=== PATIENT | female | born 1960 | race Two or more races ===

== ENCOUNTER → 2020-01-28 15:08 | Outpatient (BNVA) | payer OTHER, SELFPAY | PROVIDERS: PCP Family Medicine; Visit Provider Surgery | DX: Z86.000 Personal history of in-situ neoplasm of breast (principal); Z80.3 Family history of malignant neoplasm of breast; M19.90 Unspecified osteoarthritis, unspecified site; Z92.3 Personal history of irradiation | CPT/HCPCS: 99212 ==

== ENCOUNTER 2020-06-24 13:02 | Outpatient (REF) | payer OTHER, SELFPAY ==
--- NOTE | ~2020-06-24 | MM_ITS ---
EXAMINATION: MM SCREENING DIGITAL BREAST TOMOSYNTHESIS, BILATERAL CLINICAL INFORMATION: Screening. Asymptomatic. Status post right lumpectomy. COMPARISON: Mammography: April 11, 2019 and studies dating back to June 13, 2011 TECHNIQUE: Digital breast tomosynthesis is performed in both the craniocaudal and mediolateral oblique views along with computer-aided detection (CAD). Synthesized 2D images are generated from the tomosynthesis. FINDINGS: There are scattered areas of fibroglandular density (ACR BI-RADS breast composition Category b). There are no significant masses, abnormal calcifications, or other abnormalities. Patient status post previous right lumpectomy with associated postsurgical change. MM/MM tomosynthesis screening BI IMPRESSION: There are no significant changes from prior study. ASSESSMENT: BI-RADS 2: Benign RECOMMENDATION: Routine annual mammography screening. This patient's information was entered into a reminder system with a target due date for their next mammogram.
== END 2020-06-24 13:03 | disposition home or self-care (01) ==
LOC: HO.MAMMO 13:02
PROVIDERS: PCP Family Medicine; Visit Provider Family Medicine
DX: Z12.31 Encounter for screening mammogram for malignant neoplasm of breast (principal)
CPT/HCPCS: 77063; 77067

== ENCOUNTER 2020-08-04 14:56 | Outpatient (REF) | payer OTHER, SELFPAY ==
[2020-08-04 17:41] LABS: Hematocrit 38.4 % (37-47); Hemoglobin 12.2 g/dl (12.0-16.0); Mean Corpuscular HGB Conc 31.8 g/dl (31.0-35.0); Mean Corpuscular Hemoglobin 27.9 pg (27.0-33.0); Mean Corpuscular Volume 87.7 fL (80-98); Mean Platelet Volume 10.6 fL (9.4-12.3); Platelet Count 205 X10*3/uL (160-400); Red Blood Count 4.38 X10*6/uL (4.20-5.50); Red Cell Distribution Width 13.9 % (11.0-16.0); White Blood Count 5.5 X10*3/uL (4.8-10.8)
[2020-08-04 18:00] LABS: Alanine Aminotransferase 11 U/L (0-31); Albumin Level 4.4 g/dL (3.5-5.0); Alkaline Phosphatase 69 U/L (39-117); Anion Gap 13 (12-20); Aspartate Amino Transferase 15 U/L (5-31); Bilirubin Total 0.4 mg/dL (0.0-1.0); Blood Urea Nitrogen 13 mg/dL (9-16); Calcium 9.4 mg/dL (8.4-10.2); Carbon Dioxide 29 mmol/L (22-29); Chloride 105 mmol/L (96-108); Estimated Glomerular Filt Rate > 60; Glucose Random 107 mg/dL (60-115); Potassium 3.9 mmol/L (3.3-5.1); Sodium 143 mmol/L (135-145)
== END 2020-08-04 14:57 | disposition home or self-care (01) ==
LOC: HO.LAB 14:56
PROVIDERS: PCP Family Medicine; Visit Provider Nurse Practitioner Family
DX: Z01.818 Encounter for other preprocedural examination (principal)
CPT/HCPCS: 36415; 80053; 85027; 99202

== ENCOUNTER → 2020-08-12 13:38 | Outpatient (BNVA) | payer OTHER, SELFPAY | PROVIDERS: PCP Family Medicine; Referring Provider Family Medicine; Visit Provider Surgery | DX: Z86.000 Personal history of in-situ neoplasm of breast (principal) | CPT/HCPCS: 99212 ==

== ENCOUNTER → 2020-08-13 10:30 | Outpatient (BNV) | payer OTHER, SELFPAY | PROVIDERS: PCP Family Medicine; Visit Provider Internal Medicine Medical Oncology | DX: Z86.000 Personal history of in-situ neoplasm of breast (principal) | CPT/HCPCS: 99213; 99214 ==

== ENCOUNTER 2020-09-18 12:24 | Day surgery (SDC) | payer OTHER, SELFPAY ==
--- NOTE | 2020-09-17 11:08 | HO.ANESPROP2 ---
Documented by User: Lachelle Loyola 09/17/20 11:09 HPI - Anesthesia Eval Consult details Narrative: 60yo F for Colonoscopy PMFSH Active Problems Active Problems: All Active Problems (Updated 08/13/20 @ 10:14 by Chadwick Rojo MD) Osteoarthritis (Acute) History of ductal carcinoma in situ (DCIS) of breast (Acute) Past Medical History Medical History GERD (gastroesophageal reflux disease) History of ductal carcinoma in situ (DCIS) of breast Hypertension Osteoarthritis Surgical History Surgical History History of left knee replacement History of lumpectomy of right breast Social History Social History Alcohol intake: never Patient Tobacco Use Status: Former Tobacco user Use of substances other than those prescribed or required for medical reasons: No Are you DNR?: No Advance Directives: No Advance Directives Information Provided: Yes Meds Allergies Allergy/AdvReac Type Severity Reaction Status Date / Time aspirin [Aspirin] Allergy Mild HEARTBURN Verified 08/12/20 13:51 Home Medications Medication Instructions Recorded Confirmed Last Taken Type cholecalciferol (vitamin D3) 25 25 mcg PO DAILY 01/28/20 08/13/20 Unknown History mcg (1,000 unit) capsule lisinopril 10 mg tablet 10 mg PO DAILY 01/28/20 08/13/20 Unknown History omeprazole 20 mg capsule,delayed 20 mg PO DAILY 01/28/20 08/13/20 Unknown History release Exam Exam Date and Time: September 17, 2020 110 Pertinent Lab Results Pertinent Lab Results: Laboratory Tests 08/13/20 08/13/20 10:46 10:46 WBC 4.6 L Hgb 11.9 L Hct 37.2 Plt Count 182 Sodium 141 Potassium 4.1 Chloride 105 Carbon Dioxide 29 BUN 19 H Creatinine 0.66 Assessment and Plan Assessment Anesthesia Assessment: Chart Reviewed Documented by User: Sophia Woodson 09/18/20 14:29 [facility] Past Medical History Medical History GERD (gastroesophageal reflux disease) History of ductal carcinoma in situ (DCIS) of breast Hypertension Osteoarthritis Surgical History Surgical History History of left knee replacement History of lumpectomy of right breast Social History Social History Alcohol intake: never Patient Tobacco Use Status: Former Tobacco user Use of substances other than those prescribed or required for medical reasons: No Are you DNR?: No Advance Directives: No Advance Directives Information Provided: Yes Meds Allergies Allergy/AdvReac Type Severity Reaction Status Date / Time aspirin [Aspirin] Allergy Mild HEARTBURN Verified 08/12/20 13:51 Home Medications Medication Instructions Recorded Confirmed Last Taken Type cholecalciferol (vitamin D3) 25 25 mcg PO DAILY 01/28/20 08/13/20 Unknown History mcg (1,000 unit) capsule lisinopril 10 mg tablet 10 mg PO DAILY 01/28/20 08/13/20 Unknown History omeprazole 20 mg capsule,delayed 20 mg PO DAILY 01/28/20 08/13/20 Unknown History release Exam Airway Mallampati Class: II TM Dist: >3cm Partial: Upper Loose/Missing/Broken Teeth: Yes, Upper and Lower Heart: RRR Lungs: CTA Assessment and Plan Assessment Anesthesia Assessment: Anesthesia Plan Discussed and Chart Reviewed Final Anesthetic Review NPO: Yes ASA Class: II Final Preanesthetic Review: Meds/Allgs Chart Reviewed, Consent Obtained/Reviewed and Anes Risks/Benef Reviewed Patient Risk: Low Procedure Risk: Low Anesthetic Plan Anesthetic Plan: MAC: Disposition: Standard PACU
[2020-09-18] MEDS: Lactated Ringers 1,000 ML 100 ML IVCONT (13:12)
[2020-09-18 13:13] VITALS: BP 137/83; PULSE 79; RESP 16; TEMP 36.1; O2SAT 97; BMI 33.7
--- NOTE | 2020-09-18 13:20 | MHC.SHP ---
Pre-Procedural Eval Section A Date of Service: 09/18/20 The patient is an INPATIENT: No The History & Physical has been completed within 30 days and I have reviewed it.: No Section B Chief Complaint: Screening Details of Present Illness: Colon cancer screening Relevant Family History (Specify if Yes): No Relevant Social History: None Present Medications: see Short Stay Collaborative assessment Medical History: Significant History (GERD (gastroesophageal reflux disease) History of ductal carcinoma in situ (DCIS) of breast Hypertension Osteoarthritis) History of Previous Operations: Relevant previous surgery/procedure and date(s) (History of left knee replacement History of lumpectomy of right breast) Allergies: Allergies Allergy/AdvReac Type Severity Reaction Status Date / Time aspirin [Aspirin] Allergy Mild HEARTBURN Verified 08/12/20 13:51 Review of Systems Sugical H&P ROS: Negative: Constitution, Cardiovascular, Respiratory and Gastrointestinal Exam Surgical H&P Exam: Normal: Heart, Normal: Lungs, Normal: Extremities and Normal: Abdomen Plan Diagnosis/Plan: Unchanged I have reviewed the history and physical and performed a pertinent physical examination on my patient. No changes have occurred unless specified.
[2020-09-18 14:56] VITALS: BP 102/72; PULSE 67; RESP 18; TEMP 36.1; O2SAT 97
[2020-09-18 15:11] VITALS: BP 141/83; PULSE 63; RESP 18; TEMP 36.1; O2SAT 99
--- NOTE | 2020-09-18 17:43 | W.PM.OPN ---
Operative Note Operative Note Date of Service: 09/18/20 Narrative: Pre-op diagnosis: Colon cancer screening Post-op diagnosis: other (COLON POLYPS, DIVERTICULOSIS) Procedure: COLONOSCOPY PROCEDURE TO THE CECUM WITH BIOPSIES AND SNARE POLYPECTOMY Consent: Indications for the procedure and potential complications of bleeding, perforation, reaction to medications and missed diagnosis were discussed with the patient and informed consent was obtained. Instrument: Olympus PCF H 190 L variable stiffness pediatric colonoscope Monitoring: Vital signs and clinical assessment, intermittent blood pressure monitoring, continuous EKG monitoring, Pulse oximetry and Carbon Dioxide monitoring were done throughout the procedure. Colon withdrawl time was 19 minutes. Procedure: The patient was placed in the left lateral decubitis position and pre-procedure medications were administered. After a digital rectal examination of the ano-rectum, the video colonoscope was inserted into the rectum and advanced through the colon to the cecum. The colonoscope was slowly withdrawn in a retrograde panoramic fashion and the colon mucosa was carefully examined including a retroflexed view of the rectum. Findings and interventions are described below. Procedure Difficulty: Without difficulty Findings: Terminal Ileum: Not evaluated Cecum: A 4-5 mm sessile polyp removed with a cold snare Ascending Colon: Moderate diverticulosis Transverse Colon: A 4-5 mm sessile polyp removed with the cold biopsy and moderate diverticulosis Descending Colon: Moderate diverticulosis Sigmoid Colon: Severe diverticulosis with luminal narrowing Rectum: Normal Ano-rectum: Normal Colon preparation: Excellent Impression and Post Procedure Diagnosis: Colonoscopy Findings: Two small polyps removed Moderate to severe diverticulosis seen in the entire colon Plan: Await pathology results Patient has an appointment on 09/28/20 in the [facility] with Leslie Christianson FNP-BC . Repeat Colonoscopy interval based on path results - in 3-5 years if polyps are adenomatous and 10 years if polyps are hyperplastic. Above findings were reviewed with the patient and colon polyps and diverticulosis handouts were given in the discharge area Surgeon: Amie Reyes MD Anesthesia: MAC (Dr Woodson) Was an Supervisor [employer] used for this Procedure?: Yes Supervisor [employer]: Ramon Chan Estimated blood loss (mL): 0 Pathology: other ( A- CECAL POLYP B- TRANSVERSE COLON POLYP) Condition: other ( A- CECAL POLYP B- TRANSVERSE COLON POLYP) Disposition: PACU
== END 2020-09-18 16:00 | disposition home or self-care (01) ==
PROVIDERS: PCP Family Medicine; Visit Provider Internal Medicine Gastroenterology
PROC: 0DJD8ZZ Inspection of Lower Intestinal Tract, Via Natural or Artificial Opening Endoscopic (ICD-10-PCS; CPT 45378; principal; 2020-09-18 13:50)
DX: Z12.11 Encounter for screening for malignant neoplasm of colon (principal); D12.0 Benign neoplasm of cecum; D12.3 Benign neoplasm of transverse colon; K57.30 Diverticulosis of large intestine without perforation or abscess without bleeding; K21.9 Gastro-esophageal reflux disease without esophagitis; I10 Essential (primary) hypertension; M89.49 Other hypertrophic osteoarthropathy, multiple sites; Z96.652 Presence of left artificial knee joint; Z85.3 Personal history of malignant neoplasm of breast; Z79.899 Other long term (current) drug therapy; Z88.8 Allergy status to other drugs, medicaments and biological substances; Z87.891 Personal history of nicotine dependence
CPT/HCPCS: 45385; 45380; 88305

== ENCOUNTER → 2020-09-28 12:20 | Outpatient (BNVA) | payer OTHER, SELFPAY | PROVIDERS: Visit Provider Nurse Practitioner Family | DX: D36.9 Benign neoplasm, unspecified site (principal); Z98.890 Other specified postprocedural states | CPT/HCPCS: Q3014 ==

== ENCOUNTER → 2021-02-11 10:08 | Outpatient (BNVA) | payer OTHER, SELFPAY | PROVIDERS: Visit Provider Surgery | DX: Z12.31 Encounter for screening mammogram for malignant neoplasm of breast (principal); N64.4 Mastodynia; Z86.000 Personal history of in-situ neoplasm of breast; Z92.3 Personal history of irradiation; Z80.3 Family history of malignant neoplasm of breast | CPT/HCPCS: 99212 ==

== ENCOUNTER 2021-06-28 13:04 | Outpatient (REF) | payer OTHER, SELFPAY ==
--- NOTE | ~2021-06-28 | MM_ITS ---
EXAMINATION: MM SCREENING DIGITAL BREAST TOMOSYNTHESIS, BILATERAL CLINICAL INFORMATION: Screening. Asymptomatic. Right breast cancer status post lumpectomy, 2011. Due for yearly. COMPARISON: Mammography: 06/24/2020, 04/11/2019, 04/05/2018, 03/30/2017, 03/28/2016 TECHNIQUE: Digital breast tomosynthesis is performed in both the craniocaudal and mediolateral oblique views along with computer-aided detection (CAD). Synthesized 2D images are generated from the tomosynthesis. FINDINGS: There are scattered areas of fibroglandular density (ACR BI-RADS breast composition Category b). Post therapy changes right breast with reduced breast size, mild scarring, and surgical clips are similar to prior studies. There is no developing density or interval mass or architectural abnormality. Neither breast shows abnormal calcifications. The bilateral axilla are unremarkable. Left CC view has oval asymmetric density mid outer breast mid depth on CC tomography with no asymmetric correlate on MLO view. Finding is most likely related to summation artifact or incompletely compressed glandular tissue. Patient will be recalled to further characterize. MM/MM tomosynthesis screening BI IMPRESSION: Left: -Parenchymal asymmetry mid outer breast on CC view, suspect summation artifact or incompletely compressed glandular tissue. Right: -No mammographic evidence of malignancy. -Post therapy changes, stable. ASSESSMENT: BI-RADS 0: Incomplete - Need Additional Imaging Evaluation RECOMMENDATION: 1. Additional views of the left breast (spot CC, rolled CC x2). 2. Targeted ultrasound if warranted after review of the additional views. 3. Radiology department staff will contact the patient for additional imaging. This patient's information was entered into a reminder system with a target due date for their next mammogram.
== END 2021-06-28 13:05 | disposition home or self-care (01) ==
LOC: HO.MAMMO 13:04
PROVIDERS: Visit Provider Family Medicine
DX: Z12.31 Encounter for screening mammogram for malignant neoplasm of breast (principal)
CPT/HCPCS: 77063; 77067

== ENCOUNTER 2021-07-02 09:18 | Outpatient (REF) | payer OTHER, SELFPAY ==
--- NOTE | ~2021-07-02 | US_ITS ---
EXAMINATION: US DIAGNOSTIC ULTRASOUND BREAST, LEFT CLINICAL INFORMATION: Asymmetric density lateral aspect. COMPARISON: Mammography of same day as well as imaging from June 28, 2021 and dating back to June 13, 2011. TECHNIQUE: Ultrasound of the breast is performed with real-time hodges scale imaging and color Doppler. FINDINGS: There is no focal suspicious finding. There is no solid mass, architectural abnormality, duct ectasia, or edema in the soft tissue planes. Results are discussed with the patient at time of visit. US/US breast LT limited IMPRESSION: No suspicious left breast ultrasound abnormality appreciated. ASSESSMENT: BI-RADS 1: Negative RECOMMENDATION: Routine annual mammography screening. This patient's information was entered into a reminder system with a target due date for their next mammogram.
--- NOTE | ~2021-07-02 | MM_ITS ---
EXAMINATION: MM DIAGNOSTIC DIGITAL BREAST TOMOSYNTHESIS, LEFT TARGETED BREAST ULTRASOUND, LEFT CLINICAL INFORMATION: Asymmetric density lateral left breast. COMPARISON: Mammography: 06/28/2021 and studies dating back to 06/13/2011. TECHNIQUE: Digital breast tomosynthesis is performed. 2D images are generated from the tomosynthesis. The following views are obtained: Targeted left breast ultrasound. FINDINGS: There are scattered areas of fibroglandular density (ACR BI-RADS breast composition Category b). Additional views efface the questioned density which are likely representing superimposition of fibroglandular tissue, however, there is some dense tissue remaining in the area. Targeted left breast ultrasound about the lateral aspect of the left breast did not demonstrate any abnormal cystic or solid masses. No region of abnormal distal sound shadowing appreciated. Results are discussed with the patient at time of visit. MM/MM tomosynthesis added views L IMPRESSION: No mammographic evidence of malignancy. ASSESSMENT: BI-RADS 1: Negative RECOMMENDATION: Routine annual mammography screening. This patient's information was entered into a reminder system with a target due date for their next mammogram.
== END 2021-07-02 09:19 | disposition home or self-care (01) ==
LOC: HO.MAMMO 09:18
PROVIDERS: Visit Provider Family Medicine
DX: R92.2 Inconclusive mammogram (principal)
CPT/HCPCS: 76642; 77061; 77065

== ENCOUNTER 2021-09-08 10:44 | Outpatient (REF) | payer OTHER, SELFPAY ==
--- NOTE | ~2021-09-08 | MM_ITS ---
EXAMINATION: BONE DENSITOMETRY CLINICAL INDICATION: Osteopenia. COMPARISON: Previous BD dated 08/18/2017 and baseline BD dated 02/19/2009. TECHNIQUE: Using a OrthAlign DXA System (software version: 13.1) manufactured by [employer], dual-energy x-ray absorptiometry was performed of the lumbar spine and left hip. The images are of good technical quality. Summary results are attached. FINDINGS: AP SPINE L1-L4: Current: BMD 0.992 g/cm2, Z-score -0.9, T-score -1.6, osteopenia, 1.7% decrease from previous, 3.8% increase from baseline (<5% change is not significant). Prior: BMD 1.009 g/cm2. Baseline: BMD 0.956 g/cm2. LEFT FEMUR, NECK: Current: BMD 0.848 g/cm2, Z-score -0.5, T-score -1.4, osteopenia. Prior: BMD 0.890 g/cm2. Baseline: BMD 0.929 g/cm2. LEFT FEMUR, TOTAL: Current: BMD 0.959 g/cm2, Z-score 0.1, T-score -0.4, normal, 0.9% increase from previous, 1.7% increase from baseline (<5% change is not significant). Prior: BMD 0.950 g/cm2. Baseline: BMD 0.943 g/cm2. IDENTIFIED RISK FACTORS: Menopause. HISTORY OF FRACTURE: None listed. MEDICATIONS: Calcium, vitamin D, bisphosphonate. MM/XR DEXA axial skeleton IMPRESSION: 1. DIAGNOSIS: Osteopenia based on the lowest T-score value of -1.6 in the lumbar spine applying World Health Organization criteria. 2. 10-YEAR FRACTURE RISK PREDICTION, FRAX: Major osteoporotic fracture (clinical spine, forearm, hip or shoulder) 4.3%. Hip fracture 0.4%. 3. Treatment Recommendations: NOF guidelines recommend consideration for treatment in postmenopausal women and men age 50 and older presenting with the following: -A hip or vertebral (clinical or morphometric) fracture. -T-score less than or equal to -2.5 at the femoral neck or spine after appropriate evaluation to exclude secondary causes. -Low bone mass at the hip or spine and a 10-year fracture probability by FRAX of greater than or equal to 3% for hip fracture or greater than or equal to 20% for major osteoporotic fracture based on the [place] adapted WHO algorithm. 4. Other Recommendations: All treatment decisions require clinical judgment and consideration of individual patient factors, including patient preferences, comorbidities, previous drug use, risk factors not captured in the FRAX model (e.g. frailty, falls, vitamin D deficiency, increased bone turnover, interval significant decline in bone density) and possible under or overestimation of fracture risk by FRAX. Additional medical evaluation for secondary cause of low bone mineral density may be appropriate. FUTURE SCAN RECOMMENDATION: People with diagnosed cases of osteoporosis or at high risk for fracture should have regular bone mineral density tests. For patients eligible for Medicare, routine testing is allowed once every 2 years. The testing frequency can be increased to one year for patients who have rapidly progressing disease, those who are receiving or discontinuing medical therapy to restore bone mass, or have additional risk factors.
== END 2021-09-08 10:45 | disposition home or self-care (01) ==
LOC: HO.MAMMO 10:44
PROVIDERS: PCP Family Medicine; Visit Provider Internal Medicine Medical Oncology
DX: Z13.820 Encounter for screening for osteoporosis (principal); M85.80 Other specified disorders of bone density and structure, unspecified site; Z78.0 Asymptomatic menopausal state
CPT/HCPCS: 77080

== ENCOUNTER 2022-01-01 16:37 | Emergency (ER) | payer OTHER, SELFPAY ==
--- NOTE | ~2022-01-01 | CT_ITS ---
EXAMINATION: CT ANGIOGRAM OF THE CHEST WITH AND WITHOUT CONTRAST (CT PULMONARY ANGIOGRAM FOR PE) CLINICAL INFORMATION: Chest pain COMPARISON: None TECHNIQUE: Prior to contrast administration, noncontrast localization images were obtained. Subsequently, multidetector volumetric imaging was performed from the thoracic inlet to below the diaphragms following the administration of 80 mL Omnipaque 350 intravenous contrast. No contrast reaction reported Sagittal, coronal, and MIP oblique sagittal reformatted images were obtained on the CT workstation, uploaded to PACS, and reviewed. This CT examination was performed using dose optimization techniques as appropriate, variously including the following: *Automated exposure control *Adjustment of mA and/or kV according to patient size (this includes techniques or standardized protocols for targeted exams where dose is matched to indication/reason for exam; i.e. extremities or head) *Use of iterative reconstruction technique Total exam dose-length product 495 mGy-cm FINDINGS: QUALITY OF STUDY/CONTRAST BOLUS: Satisfactory. PULMONARY ARTERIES: No central or segmental pulmonary emboli. THORACIC AORTA: No aneurysm or dissection. LUNG: Bibasilar consolidation at the posterior lung bases. Right worse than left. Central bronchial airways are open. PLEURA: No pleural effusion or pneumothorax. MEDIASTINUM: Heart size is normal. No pericardial effusion. No evidence of septal bowing or right heart strain. Subcarinal lymphadenopathy measuring 2 cm in short axis diameter. CHEST WALL/AXILLA: No axillary or internal mammary lymphadenopathy. OSSEOUS STRUCTURES: No acute or suspicious osseous abnormality. Multilevel degenerative spondylosis spine. UPPER ABDOMEN: Unremarkable. No reflux of contrast into the hepatic veins to suggest elevated right heart pressures. CT/CT angio chest PE protocol IMPRESSION: 1. No evidence of pulmonary embolism. 2. Bibasilar consolidation. 3. Subcarinal lymphadenopathy. 4. VTE: negative.
[2022-01-01 16:43] VITALS: BP 160/74; PULSE 80; O2SAT 98
[2022-01-01 16:50] VITALS: BP 153/85; PULSE 75; RESP 18; TEMP 37.2; O2SAT 95; BMI 37.5
--- NOTE | 2022-01-01 16:54 | ECG_ITS ---
Test Reason : CHEST PAIN Blood Pressure : / mmHG Vent. Rate : 074 BPM Atrial Rate : 074 BPM P-R Int : 150 ms QRS Dur : 080 ms QT Int : 400 ms P-R-T Axes : 049 035 -03 degrees QTc Int : 444 ms Normal sinus rhythm T wave abnormality, consider anterior ischemia Abnormal ECG When compared with ECG of 05-MAY-2017 17:03, Inverted T waves have replaced nonspecific T wave abnormality in Anterior leads Referred By: Aicha Tapia Electronically Signed By:JUVENAL SPANN MD
--- NOTE | 2022-01-01 16:57 | ED.CHESTPAIN ---
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 She notes she got her flu shot this week had a cough, didn't feel well and had fevers and cough. Her chest pain started abruptly tonight. She states it hurts to breathe this has never happened before. MD complaint: chest pain Onset (ago): hour(s) (1.5 hours ago ) Timing of current episode: constant Prior episodes: No Onset: during rest Pain location: substernal Pain radiation: back Severity: severe Quality: sharp Relieving factors: nothing Exacerbating factors: inspiration and movement Context: recent illness Associated symptoms: dyspnea Treatment prior to arrival: nitroglycerin (no relief x 2) Related Data Home Medications Medication Instructions Recorded Confirmed cholecalciferol (vitamin D3) 25 25 mcg PO DAILY 01/28/20 08/13/21 mcg (1,000 unit) capsule lisinopril 10 mg tablet 10 mg PO DAILY 01/28/20 08/13/21 omeprazole 20 mg capsule,delayed 20 mg PO DAILY 01/28/20 08/13/21 release Previous Rx's Medication Instructions Recorded ibuprofen 800 mg tablet 800 mg PO Q6H PRN pain #30 tabs 01/28/20 amoxicillin 875 mg-potassium 1 tab PO BID #14 tabs 01/01/22 clavulanate 125 mg tablet doxycycline hyclate 100 mg capsule 100 mg PO BID 7 days #14 caps 01/01/22 Allergies Allergy/AdvReac Type Severity Reaction Status Date / Time aspirin [Aspirin] Allergy Mild HEARTBURN Verified 08/13/21 09:48 Review of Systems Review of Systems: Constitutional : No Weight loss, pos Fever, pos Chills ENT/Mouth : No sore throat, No Rhinorrhea Eyes: No Eye Pain, No Swelling Cardiovascular : pos Chest Pain, pos SOB, no Dyspnea on Exertion, No Orthopnea, No Edema, No Palpitations Respiratory : pos Cough, No Sputum Gastrointestinal : pos Nausea, No Vomiting, No Diarrhea, No abdominal Pain, No Hematochezia, No Melena Genitourinary : No Dysuria, No Urinary Frequency Musculoskeletal : No joint pain, No Myalgias, No Joint Swelling Skin : No Skin Lesions, No rash Neuro : No Weakness, No Numbness, No Dizziness, No Headache Psych : No Anxiety/Panic, No Depression Heme/Lymph: No Bruising, No Lymphadenopathy Endocrine : No Polyuria, No Polydipsia All other systems reviewed and are negative ON LICENSE OF [facility] Past Medical History Medical History GERD (gastroesophageal reflux disease) History of ductal carcinoma in situ (DCIS) of breast Hypertension Osteoarthritis Tubular adenoma Surgical History History of left knee replacement History of lumpectomy of right breast Hx of colonoscopy Family History Family History (Updated 08/13/21 @ 09:47 by Griselda Miles CMA) Mother Breast cancer Sister Breast cancer Social History Social History Household Members: None Housing: House Are you a primary career technical education instructor to a significant other at home: No Do you presently have visiting nurse or other home services: Yes ([facility]) Alcohol intake: never Patient Tobacco Use Status: Former Tobacco user Advance Directives: No Advance Directives Information Provided: No service: No Current occupational status: unemployed Physical Exam Vital Signs: Vital Signs: Last Vital Signs Temp 98.9 F 01/01/22 16:50 Pulse 75 01/01/22 16:50 Resp 18 01/01/22 16:50 BP 153/85 H 01/01/22 16:50 Pulse Ox 95 01/01/22 16:50 O2 Del Method 01/01/22 16:50 BMI result Body Mass Index 37.5 Appearance: Alert. Oriented X3. No acute distress. Anxious Eyes: Pupils equal, round and reactive to light. ENT: Pharynx normal. Neck: Normal inspection. Neck supple. CVS: Normal heart rate and rhythm. Pulses normal. Respiratory: No respiratory distress. Breath sounds diminished R side Abdomen: Soft and nontender. Femoral pulses intact Skin: Skin warm and dry. pale skin color. Normal skin turgor. Extremities: No lower extremity edema. No calf ttp Neuro: Oriented X 3. No motor deficit. No sensory deficit. 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 STAT CT scan for PE/dissection at this time (normal kidney function at baseline). Will obtain basic labs, EKG, IV morphine for pain. Dispop per results and workup - immediate send to CTA without saddle or dissection noted by me in scanner. Lab Data Result diagrams: 01/01/22 17:15 01/01/22 17:15 Labs: Lab Results 01/01/22 01/01/22 01/01/22 Range/Units 17:15 17:15 17:15 WBC 5.2 (4.8-10.8) X10*3/uL RBC 4.34 (4.20-5.50) X10*6/uL Hgb 12.0 (12.0-16.0) g/dl Hct 36.7 L (37.0-47.0) % MCV 84.6 (80.0-98.0) fL MCH 27.6 (27.0-33.0) pg MCHC 32.7 (31.0-35.0) g/dl RDW 13.0 (11.0-16.0) % Plt Count 203 (160-400) X10*3/uL MPV 9.5 (9.4-12.3) fL Immature Gran % (Auto) 0.4 (0.0-0.4) % Neut % (Auto) 54.5 (45-73) % Lymph % (Auto) 29.0 (20-40) % [place] % (Auto) 11.2 H (2-11) % Eos % (Auto) 4.1 H (0-4) % Baso % (Auto) 0.8 (0-2) % Lymph # (Auto) 1.5 (1.2-4.9) X10*3/uL [place] # (Auto) 0.6 (0.1-1.2) X10*3/uL Eos # (Auto) 0.2 (0.0-0.4) X10*3/uL Baso # (Auto) 0.0 (0.0-0.2) X10*3/uL Abs Immat Gran (auto) 0.02 (0.00-0.03) X10*3/uL Absolute Neuts (auto) 2.8 (2.0-8.3) x10*3/uL Absolute Nucleated RBC 0.000 (0.0-0.012) X10*3/uL Nucleated RBC % (auto) 0.0 (0.0-0.2) /100WBC PT (10.0-13.1) SEC INR (0.9-1.1) APTT (26.0-36.4) SEC Sodium 142 (135-145) mmol/L Potassium 3.6 (3.3-5.1) mmol/L Chloride 105 (96-108) mmol/L Carbon Dioxide 25 (22-29) mmol/L Anion Gap 16 (12-20) BUN 17 H (9-16) mg/dL Creatinine 0.71 (0.5-1.4) mg/dL Estim Creat Clear Calc 92.8 Estimated GFR > 60 Random Glucose 117 H (60-115) mg/dL Lactic Acid (0.5-2.0) mmol/L Calcium 9.1 (8.4-10.2) mg/dL Magnesium 1.8 (1.6-2.6) mg/dL Total Bilirubin 0.4 (0.0-1.0) mg/dL Direct Bilirubin < 0.2 (0.0-0.5) mg/dL AST 18 (5-31) U/L ALT 15 (0-31) U/L Alkaline Phosphatase 68 (39-117) U/L Troponin I High Sens < 3.5 (<3.5-17.0) ng/L B-Natriuretic Peptide (<100) pg/mL Total Protein 7.0 (6.5-8.0) g/dL Albumin 4.1 (3.5-5.0) g/dL Lipase 39 (8-78) U/L COVID-19 (OUMAR) (Negative) COVID-19 Clin Com Influenza Type A (BERONICA) (Negative) Influenza Type B (BERONICA) (Negative) Influenza A & B Note 01/01/22 01/01/22 01/01/22 Range/Units 17:15 18:20 18:27 WBC (4.8-10.8) X10*3/uL RBC (4.20-5.50) X10*6/uL Hgb (12.0-16.0) g/dl Hct (37.0-47.0) % MCV (80.0-98.0) fL MCH (27.0-33.0) pg MCHC (31.0-35.0) g/dl RDW (11.0-16.0) % Plt Count (160-400) X10*3/uL MPV (9.4-12.3) fL Immature Gran % (Auto) (0.0-0.4) % Neut % (Auto) (45-73) % Lymph % (Auto) (20-40) % [place] % (Auto) (2-11) % Eos % (Auto) (0-4) % Baso % (Auto) (0-2) % Lymph # (Auto) (1.2-4.9) X10*3/uL [place] # (Auto) (0.1-1.2) X10*3/uL Eos # (Auto) (0.0-0.4) X10*3/uL Baso # (Auto) (0.0-0.2) X10*3/uL Abs Immat Gran (auto) (0.00-0.03) X10*3/uL Absolute Neuts (auto) (2.0-8.3) x10*3/uL Absolute Nucleated RBC (0.0-0.012) X10*3/uL Nucleated RBC % (auto) (0.0-0.2) /100WBC PT (10.0-13.1) SEC INR (0.9-1.1) APTT (26.0-36.4) SEC Sodium (135-145) mmol/L Potassium (3.3-5.1) mmol/L Chloride (96-108) mmol/L Carbon Dioxide (22-29) mmol/L Anion Gap (12-20) BUN (9-16) mg/dL Creatinine (0.5-1.4) mg/dL Estim Creat Clear Calc Estimated GFR Random Glucose (60-115) mg/dL Lactic Acid 1.9 (0.5-2.0) mmol/L Calcium (8.4-10.2) mg/dL Magnesium (1.6-2.6) mg/dL Total Bilirubin (0.0-1.0) mg/dL Direct Bilirubin (0.0-0.5) mg/dL AST (5-31) U/L ALT (0-31) U/L Alkaline Phosphatase (39-117) U/L Troponin I High Sens < 3.5 (<3.5-17.0) ng/L B-Natriuretic Peptide 61 (<100) pg/mL Total Protein (6.5-8.0) g/dL Albumin (3.5-5.0) g/dL Lipase (8-78) U/L COVID-19 (OUMAR) (Negative) COVID-19 Clin Com Influenza Type A (BERONICA) (Negative) Influenza Type B (BERONICA) (Negative) Influenza A & B Note 01/01/22 01/01/22 01/01/22 Range/Units 19:21 19:22 Unknown WBC (4.8-10.8) X10*3/uL RBC (4.20-5.50) X10*6/uL Hgb (12.0-16.0) g/dl Hct (37.0-47.0) % MCV (80.0-98.0) fL MCH (27.0-33.0) pg MCHC (31.0-35.0) g/dl RDW (11.0-16.0) % Plt Count (160-400) X10*3/uL MPV (9.4-12.3) fL Immature Gran % (Auto) (0.0-0.4) % Neut % (Auto) (45-73) % Lymph % (Auto) (20-40) % [place] % (Auto) (2-11) % Eos % (Auto) (0-4) % Baso % (Auto) (0-2) % Lymph # (Auto) (1.2-4.9) X10*3/uL [place] # (Auto) (0.1-1.2) X10*3/uL Eos # (Auto) (0.0-0.4) X10*3/uL Baso # (Auto) (0.0-0.2) X10*3/uL Abs Immat Gran (auto) (0.00-0.03) X10*3/uL Absolute Neuts (auto) (2.0-8.3) x10*3/uL Absolute Nucleated RBC (0.0-0.012) X10*3/uL Nucleated RBC % (auto) (0.0-0.2) /100WBC PT 11.5 (10.0-13.1) SEC INR 1.0 (0.9-1.1) APTT 28.5 (26.0-36.4) SEC Sodium (135-145) mmol/L Potassium (3.3-5.1) mmol/L Chloride (96-108) mmol/L Carbon Dioxide (22-29) mmol/L Anion Gap (12-20) BUN (9-16) mg/dL Creatinine (0.5-1.4) mg/dL Estim Creat Clear Calc Estimated GFR Random Glucose (60-115) mg/dL Lactic Acid (0.5-2.0) mmol/L Calcium (8.4-10.2) mg/dL Magnesium (1.6-2.6) mg/dL Total Bilirubin (0.0-1.0) mg/dL Direct Bilirubin (0.0-0.5) mg/dL AST (5-31) U/L ALT (0-31) U/L Alkaline Phosphatase (39-117) U/L Troponin I High Sens (<3.5-17.0) ng/L B-Natriuretic Peptide (<100) pg/mL Total Protein (6.5-8.0) g/dL Albumin (3.5-5.0) g/dL Lipase (8-78) U/L COVID-19 (OUMAR) Negative (Negative) COVID-19 Clin Com Not Reportable Influenza Type A (BERONICA) Negative (Negative) Influenza Type B (BERONICA) Negative (Negative) Influenza A & B Note See Note ECG Data ECG #1: Attestation: I personally reviewed and interpreted this ECG as follows: ECG interpretation date: 01/01/22 ECG interpretation time: 17:34 Interpretation: Rate: 74 Rhythm: NSR [place]: normal Normal P waves. Normal [place]. Normal QRS complex. ST T wave : inverted t waves V1-V3, artifact lateral leads, no PATI qTC: normal prior studies: prior t wave inversions 2018 The study has been interpreted contemporaneously by me. . Discharge Plan Discharge Clinical Impression: Atypical chest pain, Pneumonia Patient Disposition: Home, Self-Care Instructions: Chest Pain (ED), Pneumonia (ED) Additional Instructions: return to ED for any worsening symptoms or concerns return if you have worsening pain, difficulty breathing, you are not improving on antibiotics, please follow up with your doctor next week take all antibiotics as prescribed - start on 01/02/22 morning no flu no COVID take a probiotic over the counter while on antibiotic, take antibiotic with food regresar al servicio de urgencias por cualquier empeoramiento de los s?ntomas o inquietudes Regrese si tiene un empeoramiento del dolor, dificultad para respirar, no est? mejorando con los antibi?ticos, suhas un seguimiento con quan m?dico la pr?xima semana. tome todos los antibi?ticos seg?n lo recetado - comience el 02/01/22 por la ma?almas sin gripe sin COVID tome un probi?kasandra de venta nanette mientras est? tomando antibi?ticos, tome el antibi?kasandra con alimentos Prescriptions: New doxycycline hyclate 100 mg capsule 100 mg PO BID 7 Days Qty: 14 0RF amoxicillin-pot clavulanate 875-125 mg tablet 1 tab PO BID Qty: 14 0RF No Action lisinopril 10 mg tablet 10 mg PO DAILY omeprazole 20 mg capsule,delayed release(DR/EC) 20 mg PO DAILY cholecalciferol (vitamin D3) 25 mcg (1,000 unit) capsule 25 mcg PO DAILY ibuprofen 800 mg tablet 800 mg PO Q6H PRN (Reason: pain) Qty: 30 0RF Referrals: Dalila Yang MD [Primary Care Provider] - 01/03/22 Stand Alone Forms: Work/School Release Print Language: B[place]
[2022-01-01 17:22] LABS: MANUAL DIFF FLAG NO
[2022-01-01 17:24] LABS: Basophils Percent Auto 0.8 % (0-2); Eosinophils Absolute Auto 0.2 X10*3/uL (0.0-0.4); Eosinophils Percent Auto 4.1 % (0-4); Hematocrit 36.7 % (37.0-47.0); Imm Gran Abs Auto 0.02 X10*3/uL (0.00-0.03); Imm Gran Pct Auto 0.4 % (0.0-0.4); Lymphocytes Absolute Auto 1.5 X10*3/uL (1.2-4.9); Mean Corpuscular HGB Conc 32.7 g/dl (31.0-35.0); Mean Corpuscular Hemoglobin 27.6 pg (27.0-33.0); Mean Corpuscular Volume 84.6 fL (80.0-98.0); Mean Platelet Volume 9.5 fL (9.4-12.3); Monocytes Absolute Auto 0.6 X10*3/uL (0.1-1.2); Monocytes Percent Auto 11.2 % (2-11); Neutrophils Absolute Auto 2.8 x10*3/uL (2.0-8.3); Neutrophils Percent Auto 54.5 % (45-73); Platelet Count 203 X10*3/uL (160-400); Red Blood Count 4.34 X10*6/uL (4.20-5.50); White Blood Count 5.2 X10*3/uL (4.8-10.8)
[2022-01-01 17:28] LABS: Prothrombin Time 11.5 SEC (10.0-13.1)
[2022-01-01] MEDS: iohexoL 350 MG/ML 100 ML INFUS..BTL IV (17:30)
[2022-01-01 17:31] LABS: Partial Thromboplastin Time 28.5 SEC (26.0-36.4)
[2022-01-01 17:40] LABS: Alanine Aminotransferase 15 U/L (0-31); Albumin Level 4.1 g/dL (3.5-5.0); Alkaline Phosphatase 68 U/L (39-117); Anion Gap 16 (12-20); Aspartate Amino Transferase 18 U/L (5-31); Bilirubin Direct < 0.2 mg/dL (0.0-0.5); Bilirubin Total 0.4 mg/dL (0.0-1.0); Blood Urea Nitrogen 17 mg/dL (9-16); Calcium 9.1 mg/dL (8.4-10.2); Carbon Dioxide 25 mmol/L (22-29); Chloride 105 mmol/L (96-108); Creatinine Clr Calc Pharmacy 92.8; Estimated Glomerular Filt Rate > 60; Glucose Random 117 mg/dL (60-115); Lipase 39 U/L (8-78); Magnesium 1.8 mg/dL (1.6-2.6); Potassium 3.6 mmol/L (3.3-5.1); Sodium 142 mmol/L (135-145)
[2022-01-01 17:45] LABS: B Type Natriuretic Peptide 61 pg/mL (<100)
[2022-01-01 17:50] LABS: Troponin-I High Sensitivity < 3.5 ng/L (<3.5-17.0)
[2022-01-01] MEDS: ondansetron HCL 4 MG/2 ML VIAL IVPUSH (17:58)
[2022-01-01] MEDS: Morphine Sulfate 4 MG/ML CARTRIDGE IVPUSH (17:58)
[2022-01-01] MEDS: cefTRIAXone sodium 1 GM in 0.9 % Sodium Chloride 50 ML IV (18:29)
[2022-01-01 18:41] LABS: Lactic Acid 1.9 mmol/L (0.5-2.0)
[2022-01-01 18:51] LABS: Troponin-I High Sensitivity < 3.5 ng/L (<3.5-17.0)
[2022-01-01] MEDS: Doxycycline Hyclate 100 MG in 0.9 % Sodium Chloride 250 ML 166.67 MG IV (19:19)
[2022-01-01 19:45] LABS: COVID-19 Test Negative (Negative); IDNOW Serial# 16C4AD1C
[2022-01-01 19:46] LABS: Influenza A Negative (Negative); Influenza B2 Negative (Negative)
[2022-01-01 19:53] VITALS: BP 154/66; PULSE 70; RESP 18; TEMP 36.7; O2SAT 96
[2022-01-01 20:20] VITALS: BP 146/83; PULSE 72; RESP 18; TEMP 37; O2SAT 97
== END 2022-01-01 20:21 | disposition home or self-care (01) ==
PROVIDERS: Emergency Provider Emergency Medicine; PCP Family Medicine
DX: J18.9 Pneumonia, unspecified organism (principal); R07.89 Other chest pain; R06.02 Shortness of breath; Z20.822 Contact with and (suspected) exposure to COVID-19; Z79.899 Other long term (current) drug therapy
CPT/HCPCS: 36415; 71275; 80048; 80076; 83605; 83690; 83735; 83880; 84484; 85025; 85610; 85730; 87040; 87502; 87635; 93005; 96365; 96375; 99284; J0696; J2270; J2405; Q9967

== ENCOUNTER 2022-05-24 12:42 | Outpatient (REF) | payer OTHER, SELFPAY ==
--- NOTE | ~2022-05-24 | CT_ITS ---
EXAMINATION: CT CHEST WITHOUT CONTRAST CLINICAL INFORMATION: Pneumonia COMPARISON: 01/01/2022 TECHNIQUE: Multidetector volumetric CT imaging of the chest was done. Axial MIP volume rendering provided. Sagittal and coronal reformatted images were obtained. This CT examination was performed using dose optimization techniques as appropriate, variously including the following: *Automated exposure control *Adjustment of mA and/or kV according to patient size (this includes techniques or standardized protocols for targeted exams where dose is matched to indication/reason for exam; i.e. extremities or head) *Use of iterative reconstruction technique DLP: 147.7 mGy-cm FINDINGS: LUNGS: Interval near complete resolution of bilateral lower lobe consolidations consistent with resolving inflammation/infection. No new or enlarging pulmonary nodule. Central airways are patent. MEDIASTINUM: No mediastinal adenopathy. No significant coronary artery atherosclerotic calcifications. PLEURA: There is no pleural effusion. No pleural mass or thickening. AXILLA: No lymphadenopathy. UPPER ABDOMEN: Unremarkable. OSSEOUS STRUCTURES/SOFT TISSUES: Unremarkable. CT/CT chest wo IV con IMPRESSION: Interval near complete resolution of bilateral lower lobe consolidations consistent with resolving inflammation/infection. No new or enlarging pulmonary nodule.
== END 2022-05-24 12:43 | disposition home or self-care (01) ==
LOC: HO.CT 12:42
PROVIDERS: PCP Family Medicine; Visit Provider Family Medicine
DX: J18.9 Pneumonia, unspecified organism (principal)
CPT/HCPCS: 71250

== ENCOUNTER 2022-07-04 12:31 | Outpatient (REF) | payer OTHER, SELFPAY ==
--- NOTE | ~2022-07-04 | MM_ITS ---
EXAMINATION: MM SCREENING DIGITAL BREAST TOMOSYNTHESIS, BILATERAL CLINICAL INFORMATION: Prior history right breast cancer, DCIS 2012. Family history breast cancer mother, sister. Due for yearly. COMPARISON: Multiple prior breast imaging exams including most recent imaging 07/02/2021. TECHNIQUE: Digital breast tomosynthesis is performed in both the craniocaudal and mediolateral oblique views along with computer-aided detection (CAD). Synthesized 2D images are generated from the tomosynthesis. FINDINGS: There are scattered areas of fibroglandular density (ACR BI-RADS breast composition Category b). There are post therapy changes on the right with mild reduced breast size and stable scarring and surgical clips. No abnormal calcifications. Neither breast shows interval mass or developing density or architectural abnormality. The axilla and skin contours are unremarkable. Left breast has new tightly grouped punctate calcifications mid central 8:00 position, likely circumferential arranged, possibly rim calcification. Finding is unrelated to area of prior recall. Patient will be recalled for additional magnification views. MM/MM tomosynthesis screening BI IMPRESSION: Left: -New tightly grouped calcifications central 8:00 position, possibly benign rim calcification. Right: -No mammographic evidence of malignancy. ASSESSMENT: BI-RADS 0: Incomplete - Need Additional Imaging Evaluation RECOMMENDATION: 1. Additional views left breast (magnification CC, magnification ML). 2. Radiology department staff will contact the patient for additional imaging. This patient's information was entered into a reminder system with a target due date for their next mammogram.
== END 2022-07-04 12:32 | disposition home or self-care (01) ==
LOC: HO.MAMMO 12:31
PROVIDERS: Visit Provider Family Medicine
DX: Z12.31 Encounter for screening mammogram for malignant neoplasm of breast (principal)
CPT/HCPCS: 77063; 77067

== ENCOUNTER 2022-07-14 12:54 | Outpatient (REF) | payer OTHER, SELFPAY ==
--- NOTE | ~2022-07-14 | MM_ITS ---
EXAMINATION: MM DIAGNOSTIC DIGITAL MAMMOGRAPHY, LEFT CLINICAL INFORMATION: Recall from screening for new tightly grouped punctate calcifications mid central 8:00 left breast. Personal history contralateral right breast DCIS, 2012. Family history breast cancer mother, sister. COMPARISON: Mammography: 07/04/2022, 07/02/2021 TECHNIQUE: Digital mammography is performed in the following views: Magnification CC, magnification ML, magnification LM. FINDINGS: There are scattered areas of fibroglandular density (ACR BI-RADS breast composition Category b). The magnification views confirm tightly grouped calcifications central mid 8:00 left breast over 10 in number and composition in area of under 1 cm across. Calcifications are not arranged in a rim pattern. Stereotactic sampling is recommended. Results and recommendation are discussed with the patient at time of visit, using an rail washer. Results and recommendation called to quality engineer medical device (Jyoti) for Dr. Yang on 07/14/2022. MM/MM added views LT IMPRESSION: New grouped calcifications mid lower inner left breast. ASSESSMENT: BI-RADS 4: Suspicious RECOMMENDATION: Stereotactic biopsy left breast calcifications. This patient's information was entered into a reminder system with a target due date for their next mammogram.
== END 2022-07-14 12:55 | disposition home or self-care (01) ==
LOC: HO.MAMMO 12:54
PROVIDERS: PCP Family Medicine; Visit Provider Family Medicine
DX: R92.1 Mammographic calcification found on diagnostic imaging of breast (principal)
CPT/HCPCS: 77065

== ENCOUNTER → 2022-07-18 08:30 | Outpatient (BNVA) | payer OTHER, SELFPAY | PROVIDERS: PCP Family Medicine; Referring Provider Family Medicine; Visit Provider Surgery | DX: R92.1 Mammographic calcification found on diagnostic imaging of breast (principal); Z80.3 Family history of malignant neoplasm of breast | CPT/HCPCS: 99212 ==

== ENCOUNTER 2022-07-19 07:45 | Outpatient (REF) | payer OTHER, SELFPAY ==
--- NOTE | ~2022-07-19 | MM_ITS ---
EXAMINATION: STEREOTACTIC TOMOSYNTHESIS-GUIDED VACUUM-ASSISTED BREAST BIOPSY, LEFT SPECIMEN RADIOGRAPH, LEFT POST PROCEDURE DIGITAL MAMMOGRAM, LEFT CLINICAL INFORMATION: New grouped calcifications mid lower inner left breast. Personal history contralateral right DCIS status post lumpectomy, 2011. Family history breast cancer mother, sister. COMPARISON: Mammography 07/14/2022, 07/04/2022, 07/02/2021 TECHNIQUE/PROCEDURE: Informed consent was obtained from the patient after discussion of the benefits, risks, and alternatives to biopsy today. Patient appeared to understand. Gave opportunity for questions. Patient signed consent form. BIOPSY TABLE: [employer] Biopsy System. LESION: New tightly grouped calcifications mid lower inner left breast. LOCAL ANESTHESIA: 10 mL carbonated 1% lidocaine; 10 mL 1% lidocaine with epinephrine. DERMATOTOMY: Single skin fátima dermatotomy performed. NEEDLE: [employer] 9-gauge vacuum assisted core biopsy device. APPROACH: Caudal cranial. TARGETING: Combination of digital breast tomosynthesis and stereotactic digital mammography used for targeting. CORES: 8. CLIP: [employer] T-shaped marker. SPECIMEN RADIOGRAPH: Specimen radiograph is taken in separate room using digital mammography. There are numerous tightly grouped calcifications in one of the cores. POST PROCEDURE UNILATERAL DIGITAL MAMMOGRAM: The post biopsy mammogram is performed in separate room using separate digital mammography equipment from the biopsy procedure. CC and ML views are obtained. There are scattered areas of fibroglandular density (breast composition category: b). The clip marker is in position. The calcifications are markedly decreased at the biopsy site and no longer clearly visualized. No gross hematoma. The patient tolerated the procedure well. No immediate complications. Home instructions reviewed with the patient. Final pathology results are pending. MM/MM stereotactic biopsy LT IMPRESSION: 1. Digital tomosynthesis-guided core biopsy left breast with clip placement. 2. Specimen radiograph taken and post procedure mammogram. There is satisfactory positioning of the biopsy clip. 3. Final pathology results pending. An addendum report will be issued.
[2022-07-19] MEDS: Lidocaine HCl 1 % 20 ML VIAL 9 ML SUBCUT (09:23)
[2022-07-19] MEDS: Sodium Bicarbonate 8.4% 50 MEQ/50 ML VIAL SUBCUT (09:24)
[2022-07-19] MEDS: Lidocaine HCl 1%/Epi 1:100,000 10 ML VIAL 9 ML SUBCUT (09:26)
== END 2022-07-19 07:46 | disposition home or self-care (01) ==
LOC: HO.MAMMO 07:45
PROVIDERS: PCP Family Medicine; Visit Provider Surgery
DX: R92.1 Mammographic calcification found on diagnostic imaging of breast (principal)
CPT/HCPCS: 19081; 88305; 88360; A4648

== ENCOUNTER → 2022-07-21 09:51 | Outpatient (BNVA) | payer OTHER, SELFPAY | PROVIDERS: PCP Family Medicine; Visit Provider Surgery | DX: D05.12 Intraductal carcinoma in situ of left breast (principal); Z98.890 Other specified postprocedural states | CPT/HCPCS: 99212 ==

== ENCOUNTER 2022-07-26 07:45 | Outpatient (REF) | payer OTHER, SELFPAY ==
--- NOTE | ~2022-07-26 | MM_ITS ---
EXAMINATION: MM MAMMOGRAM GUIDED RFID LOCALIZATION BREAST, LEFT CLINICAL INFORMATION: Recent diagnosis DCIS medial left breast, T-shaped marker. COMPARISON: Mammography 07/19/2022, 07/14/2022, 07/04/2022 TECHNIQUE NEEDLE LOC: Proper informed consent is obtained from the patient after discussion of the procedure, potential risks and complications, and alternatives including declining the procedure today. Patient was given an opportunity for questions. The patient appeared to understand. The patient consented to the procedure and signed the consent form. Hospital provided medical interpreter assisted for the consent and throughout the procedure. GUIDANCE: Digital mammography. APPROACH: Medial Lateral. TARGET: T shaped biopsy clip marker. ANESTHESIA: carbonated lidocaine 1%: 6 mL. LOCALIZATION SYSTEM: -[employer] LOCallizer Wire-Free Guidance System with 12g needle applicator. -Length: 7 cm. -RADIOFREQUENCY TAG: ID # [id number] DERMATOTOMY: Single skin-fátima dermatotomy performed. RF Tag ID confirmed with LOCalizer Guidance System prior to placement. The skin is prepped and local anesthesia administered. The needle is positioned and RFID tag deployed. Final images demonstrate the LOCalizer RF tag to reside within 1 mm of the clip on the CC view and within 3 mm of the clip on the ML view. The patient tolerated the procedure well and had no immediate complications. Dressing placed and home instructions reviewed. MM/MM needle loc LT IMPRESSION: -Status post left breast RFID localization.
--- NOTE | ~2022-07-26 | MM_ITS ---
EXAMINATION: MM SPECIMEN X-RAY BREAST, LEFT BREAST CLINICAL INDICATION: Recent diagnosis DCIS medial left breast. COMPARISON: Mammography guided RF findings localization left breast 07/26/2022, stereotactic biopsy 07/19/2022, mammography 07/14/2022, 07/04/2022. TECHNIQUE: Single radiograph of the excised breast tissue is performed using digital mammography. FINDINGS: The specimen shows radiofrequency localizer tag in the specimen. The T-shaped biopsy clip marker is also in the specimen. MM/MM surgical specimen IMPRESSION: Status post imaging left breast specimen.
[2022-07-26] MEDS: Lidocaine HCl 1 % 20 ML VIAL 9 ML SUBCUT (09:13)
[2022-07-26] MEDS: Sodium Bicarbonate 8.4% 50 MEQ/50 ML VIAL SUBCUT (09:14)
== END 2022-07-26 07:46 | disposition home or self-care (01) ==
LOC: HO.MAMMO 07:45
PROVIDERS: PCP Family Medicine; Visit Provider Surgery
DX: D05.12 Intraductal carcinoma in situ of left breast (principal)
CPT/HCPCS: 19281; C1819

== ENCOUNTER 2022-08-02 11:27 | Day surgery (SDC) | payer OTHER, SELFPAY ==
[2022-07-27 15:20] VITALS: BMI 32.4
--- NOTE | 2022-07-29 09:46 | HO.ANESPROP2 ---
Documented by User: Lachelle Loyola NP 07/29/22 09:47 HPI - Anesthesia Eval Consult details Narrative: 62yo F for Left Breast Lumpectomy w/LOCalizer PMFSH Active Problems Active Problems: All Active Problems (Updated 07/22/22 @ 15:43 by Chadwick Rojo MD) Osteopenia after menopause (Acute) Ductal carcinoma in situ (DCIS) of left breast (Acute) Family history of breast cancer (Acute) Breast calcification, left (Acute) Osteoarthritis (Acute) History of ductal carcinoma in situ (DCIS) of breast (Acute) Past Medical History Medical History (Updated 07/22/22 @ 15:43 by Chadwick Rojo MD) Breast calcification, left Ductal carcinoma in situ (DCIS) of left breast Family history of breast cancer GERD (gastroesophageal reflux disease) History of ductal carcinoma in situ (DCIS) of breast Hypertension Osteoarthritis Tubular adenoma Family History Family History Mother Breast cancer Sister Breast cancer Surgical History Surgical History (Updated 07/27/22 @ 15:19 by Kenyatta Arriola RN) History of left knee replacement History of lumpectomy of right breast Hx of colonoscopy Hx of rotator cuff surgery Social History Social History Household Members: None Housing: House Are you a primary healthcare manager to a significant other at home: No Do you presently have visiting nurse or other home services: Yes ([facility]) Alcohol intake: never Patient Tobacco Use Status: Former Tobacco user Second Hand Smoke Exposure: No Use of substances other than those prescribed or required for medical reasons: No Are you DNR?: No Advance Directives: No Advance Directives Information Provided: Yes Advance Directives on File: No service: No Current occupational status: unemployed Meds Allergies Allergy/AdvReac Type Severity Reaction Status Date / Time aspirin [Aspirin] Allergy Mild HEARTBURN Verified 07/22/22 15:32 Home Medications Medication Instructions Recorded Confirmed Last Taken Type cholecalciferol (vitamin D3) 25 25 mcg PO DAILY 01/28/20 07/27/22 Unknown History mcg (1,000 unit) capsule lisinopril 10 mg tablet 10 mg PO DAILY 01/28/20 07/27/22 Unknown History omeprazole 20 mg capsule,delayed 20 mg PO DAILY 01/28/20 07/27/22 Unknown History release Exam Exam Date and Time: July 29, 2022 0946 Height,Weight and Vital Signs: Height 5 ft 4 in Weight 85.729 kg Pertinent Lab Results Pertinent Lab Results: Laboratory Tests 07/22/22 07/22/22 15:29 15:29 WBC 6.6 Hgb 12.6 Hct 39.0 Plt Count 209 Sodium 143 Potassium 4.1 Chloride 105 Carbon Dioxide 27 BUN 14 Creatinine 0.69 Narrative Narrative: EKG 12/2021 Vent. Rate : 074 BPM ? ? Atrial Rate : 074 BPM ?? P-R Int : 150 ms? QRS Dur : 080 ms ? ? QT Int : 400 ms ? ? ? P-R-T Axes : 049 035 -03 degrees ?? QTc Int : 444 ms ? Normal sinus rhythm T wave abnormality, consider anterior ischemia Abnormal ECG When compared with ECG of 05-MAY-2017 17:03, Inverted T waves have replaced nonspecific T wave abnormality in Anterior leads Assessment and Plan Assessment Anesthesia Assessment: Chart Reviewed Documented by User: Mendy Reddy MD 08/02/22 13:10 [facility] Past Medical History Medical History (Updated 07/22/22 @ 15:43 by Chadwick Rojo MD) Breast calcification, left Ductal carcinoma in situ (DCIS) of left breast Family history of breast cancer GERD (gastroesophageal reflux disease) History of ductal carcinoma in situ (DCIS) of breast Hypertension Osteoarthritis Tubular adenoma Family History Family History Mother Breast cancer Sister Breast cancer Family history of problems with anesthesia: No Surgical History Surgical History (Updated 07/27/22 @ 15:19 by Kenyatta Arriola RN) History of left knee replacement History of lumpectomy of right breast Hx of colonoscopy Hx of rotator cuff surgery History of Problems with Anesthesia: No Social History Social History Household Members: None Housing: House Are you a primary healthcare manager to a significant other at home: No Do you presently have visiting nurse or other home services: Yes ([facility]) Alcohol intake: never Patient Tobacco Use Status: Former Tobacco user Second Hand Smoke Exposure: No Use of substances other than those prescribed or required for medical reasons: No Are you DNR?: No Advance Directives: No Advance Directives Information Provided: Yes Advance Directives on File: No service: No Current occupational status: unemployed Meds Allergies Allergy/AdvReac Type Severity Reaction Status Date / Time aspirin [Aspirin] Allergy Mild HEARTBURN Verified 07/22/22 15:32 Home Medications Medication Instructions Recorded Confirmed Last Taken Type cholecalciferol (vitamin D3) 25 25 mcg PO DAILY 01/28/20 07/27/22 Unknown History mcg (1,000 unit) capsule lisinopril 10 mg tablet 10 mg PO DAILY 01/28/20 07/27/22 Unknown History omeprazole 20 mg capsule,delayed 20 mg PO DAILY 01/28/20 07/27/22 Unknown History release Exam Airway Mallampati Class: I TM Dist: >3cm Neck ROM: Full Loose/Missing/Broken Teeth: No (lower front space) Heart: rr Lungs: cta Assessment and Plan Final Anesthetic Review Family History of Problems with Anesthesia: No History of Problems with Anesthesia: No NPO: Yes ASA Class: II Final Preanesthetic Review: No Changes in Pt Med Stat, Meds/Allgs Chart Reviewed, Consent Obtained/Reviewed and Anes Risks/Benef Reviewed Patient Risk: Low Procedure Risk: Low Anesthetic Plan Anesthetic Plan: GA Disposition: Standard PACU
[2022-08-02 12:39] VITALS: BP 124/65; PULSE 58; RESP 16; TEMP 36.1; O2SAT 98
[2022-08-02] MEDS: Lactated Ringers 1,000 ML 100 ML IVCONT (12:40)
--- NOTE | 2022-08-02 13:07 | HE.ANESPSPN ---
Anesthesia Pain Service Progress Note Assessment: Patient seen and evaluated during pain rounds. Pain control reported as [ ].
--- NOTE | 2022-08-02 14:20 | MHC.SHP ---
Pre-Procedural Eval Section A Date of Service: 08/02/22 The patient is an INPATIENT: No Changes since office visit: No Cold of Flu in the past 2 weeks, No New Medical Problems, No Changes in Medication and No Patient answered all questions The History & Physical has been completed within 30 days and I have reviewed it.: Yes Section B Chief Complaint: Intraductal carcinoma in situ of left breast Allergies: Allergies Allergy/AdvReac Type Severity Reaction Status Date / Time aspirin [Aspirin] Allergy Mild HEARTBURN Verified 07/22/22 15:32 Plan I have reviewed the history and physical and performed a pertinent physical examination on my patient. No changes have occurred unless specified. Time Spent With Patient Time: Total time managing care of this patient today ____ minutes.
--- NOTE | 2022-08-02 14:25 | PC.NURSE ---
PATIENT REPORTED OFF BY THIS RN TO [facility] REGISTRATION REP AT THIS TIME.
--- NOTE | 2022-08-02 15:38 | P.OP_ITS ---
Operative Note Operative Note Date of Service: 08/02/22 Narrative: Preop diagnosis: DCIS, left breast Postop diagnosis: DCIS left breast Procedure: Lumpectomy with Hologic localizer, left breast Surgeon: Alejandro Valle MD assistant teacher primary: MARGIE Watson The patient is a 62 year female with a newly diagnosed DCIS of the left breast. She understood the technique of lumpectomy with the Hologic localizer. She was aware of the risks, benefits, and alternatives She was brought to the operating room. She was placed supine under general anesthesia via laryngeal mask airway. The left breast was prepped and draped in the usual sterile fashion. A surgical time-out was done. The patient received cefazolin 2 g IV preoperatively. The biopsy site was on the medial aspect inferiorly on the left breast. The shortest distance detected from the skin to Hologic localizer clip was. I infiltrated this area with lidocaine 1%. I made a transverse incision on this area using blade 15. This carried down through the full-thickness of the skin subcutaneous fat. I then proceeded to gently dissect around this area using the curved Armando scissors, medically using the Hologic localizer to locate the localizing clip. I continued to dissect circumferentially all the way posteriorly until this lumpectomy specimenwas completed delivered. I had marked the lateral side as well as the superior side of the specimen with sutures for orientation. We proceeded to do re-ray in the operating room and this confirmed the presence of the biopsy clip as well as the Hologic localizing clip in the specimen. I then spent the specimen for immediate gross exam with the pathologist. In the meantime, we controlled any oozing areas for hemostasis. Once hemostasis was confirmed, I proceeded to then reapposed the breast tissue with soft 3-0 interrupted sutures. Skin closure was also achieved with polyps of 4-0 subcuticular running sutures. We then received a call from the pathologist stating that the lesion seemed to be close at the posterior margin as well as the lateral margin. With therefore reopened the incision. I excised more margins laterally as well as posteriorly and this was sent as additional surgeons separately We observed for hemostasis. Once hemostasis was confirmed, I reapposed the breast tissue with Polysorb 3-0 interrupted sutures. Skin closure was achieved with was or the 4-0 subcuticular running sutures. I infiltrated the area with Marcaine 0.5% for postop analgesia. Dressings were applied. The procedure was then completed The patient tolerated procedure well. There were no immediate complications. All final counts of sponges and instruments were correct. Estimated blood loss about 30 cc. The patient was extubated without difficulty and transferred to the recovery room with stable vital signs. Breast Beatrice Node Biopsy Substrate(s) used for sentinel node biopsy in the non-neoadjuvant setting: N/A Substrate(s) used for sentinel node biopsy in the neoadjuvant setting: N/A General Surg. - Synoptic Notes Breast Beatrice Node Biopsy Substrate(s) used for sentinel node biopsy in the non-neoadjuvant setting: N/A Substrate(s) used for sentinel node biopsy in the neoadjuvant setting: N/A
[2022-08-02 15:46] VITALS: BP 129/66; PULSE 56; RESP 16; TEMP 36.2; O2SAT 99
[2022-08-02 15:51] VITALS: BP 129/64; PULSE 52; RESP 16; O2SAT 99
[2022-08-02 15:56] VITALS: BP 139/64; PULSE 50; RESP 16; O2SAT 99
[2022-08-02 16:01] VITALS: BP 136/61; PULSE 49; RESP 16; O2SAT 99
[2022-08-02 16:12] VITALS: BP 131/57; PULSE 51; RESP 15; TEMP 36.1; O2SAT 99
== END 2022-08-02 16:30 | disposition home or self-care (01) ==
PROVIDERS: PCP Family Medicine; Visit Provider Surgery
PROC: (CPT 19301; principal; 2022-08-02 13:50)
DX: D05.12 Intraductal carcinoma in situ of left breast (principal); Z17.0 Estrogen receptor positive status [ER+]; Z85.3 Personal history of malignant neoplasm of breast; Z92.3 Personal history of irradiation; Z80.0 Family history of malignant neoplasm of digestive organs; M85.80 Other specified disorders of bone density and structure, unspecified site; M19.90 Unspecified osteoarthritis, unspecified site; I10 Essential (primary) hypertension; K21.9 Gastro-esophageal reflux disease without esophagitis; Z79.899 Other long term (current) drug therapy; Z88.8 Allergy status to other drugs, medicaments and biological substances; Z96.652 Presence of left artificial knee joint; Z87.891 Personal history of nicotine dependence
CPT/HCPCS: 19301; 88307; J0690; J1885; J2405; J2795; J3010

== ENCOUNTER → 2022-08-15 13:31 | Outpatient (BNVA) | payer OTHER, SELFPAY | PROVIDERS: PCP Family Medicine; Visit Provider Surgery | DX: D05.12 Intraductal carcinoma in situ of left breast (principal) | CPT/HCPCS: 99212 ==

== ENCOUNTER 2023-02-16 12:56 | Outpatient (AMB) | payer OTHER, SELFPAY ==
--- NOTE | 2023-02-16 13:00 | MHC.OFFVIS ---
Intake Vital Signs 02/16/23 13:09 Height 5 ft 5 in Weight 19 lb BMI 3.2 BP 142/74 H Blood Pressure Location Lt brachial Position Sitting Pulse 80 Intake Visit Reasons: 6 month breast exam, LT breast lumpectomy Intake Note: This patient presents for a six month follow-up assessment for breast examination. Patient c/o; finished radiation 10/26, is currently taking Anastrozole, side effects hot flashes Terrestrial Ecologist Required: No Accompanied by: Self / Same As Patient Allergies aspirin [Aspirin] Allergy (Mild, Verified 02/16/23 13:09) HEARTBURN Medication List - Last Reconciled 02/16/23 by Alejandro Valle MD anastrozole 1 mg PO DAILY cholecalciferol (vitamin D3) 25 mcg PO DAILY ibuprofen 600 mg PO Q6H PRN lisinopril 10 mg PO DAILY omeprazole 20 mg PO DAILY HPI 6 month breast exam, LT breast lumpectomy HPI Details She had undergone lumpectomy for DCI S the left breast last 08/02/2022. S he had undergone r adiation for the l eft breast and has completed this. She continues to f eel well and denie s any significant complaints. Mendoza sanon is on anastrozol e and has been fol lowing with Dr. Debra hood of Oncology. [facility] Medical History Ductal carcinoma in situ (DCIS) of left breast Family history of breast cancer Breast calcification, left Tubular adenoma GERD (gastroesophageal reflux disease) History of ductal carcinoma in situ (DCIS) of breast Osteoarthritis Hypertension Surgical History History of lumpectomy of left breast (~08/02/22) Hx of rotator cuff surgery Hx of colonoscopy History of lumpectomy of right breast History of left knee replacement Family History Mother Breast cancer Sister Breast cancer Social History Household Members: None Housing: House Are you a primary hiv/aids care nurse to a significant other at home: No Do you presently have visiting nurse or other home services: Yes ([facility]) Alcohol intake: never Patient Tobacco Use Status: Former Tobacco user Second Hand Smoke Exposure: No service: No Current occupational status: unemployed Female Reproductive History Menstrual Age of Menarche: 11 Review of Systems Const Denies chills and Denies fever(s) Card Denies chest pain, Denies dyspnea and Denies dyspnea on exertion Resp Denies cough, Denies dyspnea and Denies dyspnea on exertion GI Denies hematochezia and Denies change in bowel habits Denies hematuria Musc Denies back pain and Denies limited range of motion Neuro Denies focal weakness and Denies convulsions Psych Denies depression and Denies mood swings Physical Exam Const General: comfortable and no acute distress Orientation/consciousness: patient oriented x3 Neck Neck: Yes no lymphadenopathy Chest Other: No palpable breast masses, no nipple or skin changes, no axillary lymphadenopathy Resp Auscultation: clear to auscultation bilaterally Cardio Rhythm: regular rhythm GI Palpation (GI): Soft to palpation, nontender and no guarding Neuro General: patient oriented x3 Assessment & Plan Assessment & Plan (1) Ductal carcinoma in situ (DCIS) of left breast: Code(s): D05.12 - Intraductal carcinoma in situ of left breast Plan: She has completed radiation treatment. She seems to be doing well. There are no palpable breast masses or any nipple or skin changes I have reminded her to continue with regular screening mammograms. I will see her again in the office after her mammogram in July 2022. She is to continue to follow-up with Dr. Rojo as well. She had genetic testing with Dr. Gonzalez before and this was negative for mutations Coding Level of Care Code Est Pt Level 3 (52156) Diagnoses Ductal carcinoma in situ (DCIS) of left breast D05.12
[2023-02-16 13:09] VITALS: BP 142/74; PULSE 80
== END 2023-02-16 13:28 | disposition home or self-care (01) ==
PROVIDERS: PCP Nurse Practitioner Family; Visit Provider Surgery
DX: D05.12 Intraductal carcinoma in situ of left breast (principal)
CPT/HCPCS: 99213

== ENCOUNTER → 2023-02-16 12:56 | Outpatient (BNVA) | payer OTHER, SELFPAY | PROVIDERS: PCP Family Medicine; Visit Provider Surgery | DX: D05.12 Intraductal carcinoma in situ of left breast (principal) | CPT/HCPCS: 99212 ==

== ENCOUNTER 2023-07-07 11:08 | Outpatient (REF) | payer OTHER, SELFPAY ==
--- NOTE | ~2023-07-07 | MM_ITS ---
EXAMINATION: MM DIAGNOSTIC DIGITAL BREAST TOMOSYNTHESIS, BILATERAL CLINICAL INFORMATION: Post lumpectomy protocol right breast, year one status post DCIS lumpectomy the medial left breast 08/02/2022. History of contralateral DCIS in 2012 status post lumpectomy. Strong family history of breast cancer in mother and sister. COMPARISON: Mammography guided RFID localization left breast 07/26/2022, stereotactic biopsy 07/19/2022, mammography 07/14/2022, 07/04/2022. Dating back to 2019 TECHNIQUE: Digital breast tomosynthesis is performed in both the craniocaudal and mediolateral oblique views along with computer-aided detection (CAD). Synthesized 2D images are generated from the tomosynthesis. In addition, 2-D spot magnification left CC and ML views were obtained of the left lumpectomy site, as well as a full-field 3-D left mediolateral view. FINDINGS: There are scattered areas of fibroglandular density (ACR BI-RADS breast composition Category b). Left breast demonstrates surgical scarring along the lateral inferior aspect. There is no evidence of recurrent suspicious calcification or new region of developing architectural distortion. There is mild skin thickening and mild trabecular thickening related to treatment related changes. No developing mass. Stable postoperative changes seen in the central slightly lateral right breast, mid to anterior one third, with surgical harmeet in place and mild architectural distortion. This is unchanged from prior exams. No new suspicious calcifications, developing architectural distortion or developing mass identified. No axillary abnormalities in either breast. MM/MM tomosynthesis diagnostic BI IMPRESSION: Expected postoperative changes left breast from medial inferior lumpectomy. No evidence of residual or recurrent disease mammographically. Expected postoperative changes right breast from anterior slightly lateral lumpectomy, with no change from prior exams and no evidence of recurrent disease. Recommend one-year follow-up as per postop protocol. ASSESSMENT: BI-RADS BI-RADS 2 - Benign Findings RECOMMENDATION: 1 year F/U Results were provided to the patient at time of visit by the technologist. This patient's information was entered into a reminder system with a target due date for their next mammogram.
== END 2023-07-07 11:09 | disposition home or self-care (01) ==
LOC: HO.MAMMO 11:08
PROVIDERS: PCP Nurse Practitioner Family; Visit Provider Surgery
DX: Z85.3 Personal history of malignant neoplasm of breast (principal)
CPT/HCPCS: 77062; 77066

== ENCOUNTER → 2023-07-07 11:30 | Outpatient (BNV) | payer OTHER, SELFPAY | PROVIDERS: PCP Nurse Practitioner Family; Visit Provider Radiology Diagnostic Radiology | DX: Z85.3 Personal history of malignant neoplasm of breast (principal) | CPT/HCPCS: 77066; G0279 ==

== ENCOUNTER 2023-07-26 11:41 | Outpatient (AMB) | payer OTHER, SELFPAY ==
[2023-07-26 11:48] VITALS: BMI 33.4
--- NOTE | 2023-07-26 11:48 | A.OFFVIS_ITS ---
Vital Signs 07/26/23 11:48 Height 5 ft 5 in Weight 201 lb BMI 33.4 Intake Visit Reasons: 6 Month Breast exam Intake Note: This patient presents for a six month breast examination assessment. Patient c/o; reports no breast complaints. 07/07/2023: MM Diag Hand Zipper Trimmer Required: No Accompanied by: Self / Same As Patient Allergies aspirin [Aspirin] Allergy (Mild, Verified 07/26/23 11:55) HEARTBURN Medication List - Last Reconciled 07/26/23 by Alejandro Valle MD anastrozole 1 mg PO DAILY cholecalciferol (vitamin D3) 25 mcg PO DAILY ibuprofen 600 mg PO Q6H PRN lisinopril 10 mg PO DAILY omeprazole 20 mg PO DAILY HPI HPI 6 Month Breast exam: Details: She is here for a follow-up for history of DCIS. She would undergone lumpectomy last Jul, 2022 for DCIS on the right breast. She had radiation to complete treatment. She is currently on anti hormonal treatment as well with anastrozole. She denies any complaints. She feels well overall. [facility] Medical History Ductal carcinoma in situ (DCIS) of left breast Family history of breast cancer Breast calcification, left Tubular adenoma GERD (gastroesophageal reflux disease) History of ductal carcinoma in situ (DCIS) of breast Osteoarthritis Hypertension Surgical History History of lumpectomy of left breast (~08/02/22) Hx of rotator cuff surgery Hx of colonoscopy History of lumpectomy of right breast History of left knee replacement Family History Mother Breast cancer Sister Breast cancer Social History Household Members: None Housing: House Are you a primary healthcare network pricing consultant to a significant other at home: No Do you presently have visiting nurse or other home services: Yes ([facility]) Alcohol intake: never Patient Tobacco Use Status: Former Tobacco user Second Hand Smoke Exposure: No service: No Current occupational status: unemployed Female Reproductive History Menstrual Age of Menarche: 11 Review of Systems Const Denies chills and Denies fever(s) Card Denies chest pain, Denies dyspnea and Denies dyspnea on exertion Resp Denies cough, Denies dyspnea and Denies dyspnea on exertion GI Denies hematochezia and Denies change in bowel habits Denies hematuria Musc Denies back pain and Denies limited range of motion Neuro Denies focal weakness and Denies convulsions Psych Denies depression and Denies mood swings Physical Exam Const General: comfortable and no acute distress Orientation/consciousness: patient oriented x3 Neck Neck: Yes no lymphadenopathy Chest Other: Palpable breast masses, no nipple or skin changes, no axillary lymphadenopathy Resp Auscultation: clear to auscultation bilaterally Cardio Rhythm: regular rhythm GI Palpation (GI): Soft to palpation, nontender and no guarding Neuro General: patient oriented x3 Assessment & Plan Assessment & Plan (1) History of ductal carcinoma in situ (DCIS) of breast: Comment: She continues to do well with regard to her personal history of DCIS of the right breast and with regard to her family history. Code(s): Z86.000 - Personal history of in-situ neoplasm of breast Category: Medical Plan: Current examination does not reveal any palpable breast mass or any axillary adenopathy. Her follow-up mammogram last 07/09/2023 was benign findings. She is to continue to do regular screening mammograms. I will see her again in the office in about 6 months. She continues to follow up with her oncologist as she is on hormonal treatment with anastrozole. Coding Level of Care Code Est Pt Level 3 (86706) Diagnoses History of ductal carcinoma in situ (DCIS) of breast Z86.000
== END 2023-07-26 12:02 | disposition home or self-care (01) ==
PROVIDERS: PCP Nurse Practitioner Family; Visit Provider Surgery
DX: Z86.000 Personal history of in-situ neoplasm of breast (principal)
CPT/HCPCS: 99213

== ENCOUNTER → 2023-07-26 11:41 | Outpatient (BNVA) | payer OTHER, SELFPAY | PROVIDERS: PCP Nurse Practitioner Family; Visit Provider Surgery | DX: Z86.000 Personal history of in-situ neoplasm of breast (principal) | CPT/HCPCS: 99212 ==

== ENCOUNTER 2023-10-25 13:03 | Outpatient (REF) | payer OTHER, SELFPAY ==
--- NOTE | ~2023-10-25 | MM_ITS ---
EXAMINATION: BONE DENSITOMETRY CLINICAL INDICATION: Osteopenia. COMPARISON: Previous BD dated 09/08/2021 and baseline BD dated 02/19/2009. TECHNIQUE: Using a [employer] DXA System (software version: 13.1) manufactured by [employer], dual-energy x-ray absorptiometry was performed of the lumbar spine and left hip. The images are of good technical quality. Summary results are attached. FINDINGS: LEFT FEMUR, NECK: Current: BMD 0.856 g/cm2, Z-score -0.4, T-score -1.3, osteopenia. Prior: BMD 0.848 g/cm2. Baseline: BMD 0.929 g/cm2. LEFT FEMUR, TOTAL: Current: BMD 0.956 g/cm2, Z-score 0.2, T-score -0.4, normal, 0.3% decrease from previous, 1.4% increase from baseline (<5% change is not significant). Prior: BMD 0.959 g/cm2. Baseline: BMD 0.943 g/cm2. AP SPINE L1-L4: Current: BMD 1.010 g/cm2, Z-score -0.7, T-score -1.4, osteopenia, 1.8% increase from previous, 5.6% increase from baseline (<5% change is not significant). Prior: BMD 0.992 g/cm2. Baseline: BMD 0.956 g/cm2. IDENTIFIED RISK FACTORS: Menopause. HISTORY OF FRACTURE: None listed. MEDICATIONS: Calcium supplements or multivitamin, vitamin D, ERT/SERMS. MM/XR DEXA axial skeleton IMPRESSION: 1. DIAGNOSIS: Osteopenia based on the lowest T-score value of -1.4 in the lumbar spine applying World Health Organization criteria. 2. 10-YEAR FRACTURE RISK PREDICTION, FRAX: Not performed in this patient on estrogen or bone building treatments. 3. Treatment Recommendations: NOF guidelines recommend consideration for treatment in postmenopausal women and men age 50 and older presenting with the following: -A hip or vertebral (clinical or morphometric) fracture. -T-score less than or equal to -2.5 at the femoral neck or spine after appropriate evaluation to exclude secondary causes. -Low bone mass at the hip or spine and a 10-year fracture probability by FRAX of greater than or equal to 3% for hip fracture or greater than or equal to 20% for major osteoporotic fracture based on the [place] adapted WHO algorithm. 4. Other Recommendations: All treatment decisions require clinical judgment and consideration of individual patient factors, including patient preferences, comorbidities, previous drug use, risk factors not captured in the FRAX model (e.g. frailty, falls, vitamin D deficiency, increased bone turnover, interval significant decline in bone density) and possible under or overestimation of fracture risk by FRAX. Additional medical evaluation for secondary cause of low bone mineral density may be appropriate. FUTURE SCAN RECOMMENDATION: People with diagnosed cases of osteoporosis or at high risk for fracture should have regular bone mineral density tests. For patients eligible for Medicare, routine testing is allowed once every 2 years. The testing frequency can be increased to one year for patients who have rapidly progressing disease, those who are receiving or discontinuing medical therapy to restore bone mass, or have additional risk factors. Electronically signed by: Jacques Ansari MD 11/01/2023 09:00 AM VICTOR HUGO RP
== END 2023-10-25 13:04 | disposition home or self-care (01) ==
LOC: HO.MAMMO 13:03
PROVIDERS: PCP Family Medicine; Visit Provider Internal Medicine Medical Oncology
DX: Z13.820 Encounter for screening for osteoporosis (principal); M85.80 Other specified disorders of bone density and structure, unspecified site; Z78.0 Asymptomatic menopausal state
CPT/HCPCS: 77080

== ENCOUNTER → 2024-01-31 12:56 | Outpatient (BNV) | payer OTHER, SELFPAY | PROVIDERS: PCP Family Medicine; Visit Provider Internal Medicine | DX: D05.12 Intraductal carcinoma in situ of left breast (principal) | CPT/HCPCS: 77049 ==

== ENCOUNTER 2024-01-31 13:03 | Outpatient (REF) | payer OTHER, SELFPAY ==
[2024-01-31] MEDS: gadobutroL 10 ML VIAL IVPUSH (15:18)
== END 2024-01-31 13:04 | disposition home or self-care (01) ==
LOC: HO.MRI 13:03
PROVIDERS: PCP Family Medicine; Visit Provider Internal Medicine Medical Oncology
DX: D05.12 Intraductal carcinoma in situ of left breast (principal)
CPT/HCPCS: 77049; A9585

== ENCOUNTER → 2024-02-22 14:33 | Outpatient (BNVA) | payer OTHER, SELFPAY | PROVIDERS: PCP Family Medicine; Visit Provider Surgery ==

== ENCOUNTER 2024-02-29 11:18 | Outpatient (AMB) | payer OTHER, SELFPAY ==
[2024-02-29 11:25] VITALS: BMI 33.4
--- NOTE | 2024-02-29 11:25 | MHC.OFFVIS ---
Vital Signs 02/29/24 11:25 Height 5 ft 5 in Weight 201 lb BMI 33.4 Intake Visit Reasons: 6m br exam~ MRI results Intake Note: This patient presents for six month breast examination assessment, MRI results. Pt c/o; reports no breast complaints at this time. Stranding Machine Operator Helper Required: Yes Stranding Machine Operator Helper Services: Stranding Machine Operator Helper Offered & Declined Accompanied by: Self / Same As Patient Allergies aspirin [Aspirin] Allergy (Mild, Verified 02/29/24 11:30) HEARTBURN Medication List - Last Reconciled 02/29/24 by Alejandro Valle MD anastrozole 1 mg PO DAILY cholecalciferol (vitamin D3) 25 mcg PO DAILY ibuprofen 600 mg PO Q6H PRN lisinopril 10 mg PO DAILY omeprazole 20 mg PO DAILY HPI HPI 6m br exam~ MRI results: Details: She is here for a follow-up for history of DCIS. She would undergone lumpectomy last Jul, 2022 for DCIS on the right breast. She had radiation to complete treatment. She is currently on anti hormonal treatment as well with anastrozole. She denies any complaints. She feels well overall. She had a surveillance MRI last month and this was unremarkable. [facility] Medical History Ductal carcinoma in situ (DCIS) of left breast Family history of breast cancer Breast calcification, left Tubular adenoma GERD (gastroesophageal reflux disease) History of ductal carcinoma in situ (DCIS) of breast Osteoarthritis Hypertension Surgical History History of lumpectomy of left breast (~08/02/22) Hx of rotator cuff surgery Hx of colonoscopy History of lumpectomy of right breast History of left knee replacement Family History Mother Breast cancer Sister Breast cancer Social History Household Members: None Housing: House Are you a primary child care attendant school to a significant other at home: No Do you presently have visiting nurse or other home services: Yes ([facility]) Alcohol intake: never Patient Tobacco Use Status: Former Tobacco user Second Hand Smoke Exposure: No service: No Current occupational status: unemployed Female Reproductive History Menstrual Age of Menarche: 11 Review of Systems Const Denies chills and Denies fever(s) Card Denies chest pain, Denies dyspnea and Denies dyspnea on exertion Resp Denies cough, Denies dyspnea and Denies dyspnea on exertion GI Denies hematochezia and Denies change in bowel habits Denies hematuria Musc Denies back pain and Denies limited range of motion Neuro Denies focal weakness and Denies convulsions Psych Denies depression and Denies mood swings Physical Exam Vital Signs: BMI result Body Mass Index 33.4 Const General: comfortable and no acute distress Orientation/consciousness: patient oriented x3 Neck Neck: Yes no lymphadenopathy Chest Other: No palpable breast masses, no nipple or skin changes, no axillary lymphadenopathy Resp Auscultation: clear to auscultation bilaterally Cardio Rhythm: regular rhythm GI Palpation (GI): Soft to palpation, nontender and no guarding Neuro General: patient oriented x3 Assessment & Plan Assessment & Plan (1) History of ductal carcinoma in situ (DCIS) of breast: Comment: She continues to do well with regard to her personal history of DCIS of the right breast and with regard to her family history. Code(s): Z86.000 - Personal history of in-situ neoplasm of breast Category: Medical Plan: She continues to do well. Her MRI from last month was unremarkable. This did not reveal any new lesions Current exam does not suggest any mass or axillary lymphadenopathy She continues to be on hormonal treatment. I will see her again in the office in about 6 months. She understands the plan well. She is also being followed by the oncologist. Coding Level of Care Code Est Pt Level 3 (90132) Diagnoses History of ductal carcinoma in situ (DCIS) of breast Z86.000
== END 2024-02-29 11:42 | disposition home or self-care (01) ==
PROVIDERS: PCP Family Medicine; Visit Provider Surgery
DX: Z86.000 Personal history of in-situ neoplasm of breast (principal)
CPT/HCPCS: 99213

== ENCOUNTER → 2024-02-29 11:18 | Outpatient (BNVA) | payer OTHER, SELFPAY | PROVIDERS: PCP Family Medicine; Visit Provider Surgery | DX: Z86.000 Personal history of in-situ neoplasm of breast (principal); Z92.3 Personal history of irradiation | CPT/HCPCS: 99212 ==

== ENCOUNTER 2024-07-10 14:04 | Outpatient (REF) | payer OTHER, SELFPAY ==
--- NOTE | ~2024-07-10 | MM_ITS ---
EXAMINATION: MM DIAGNOSTIC DIGITAL BREAST TOMOSYNTHESIS, BILATERAL CLINICAL INFORMATION: History of bilateral breast cancer right breast cancer in 2011 and left breast cancer in 2022 status post bilateral lumpectomies. COMPARISON: Mammography: Comparison is made with relevant prior exams. TECHNIQUE: Digital breast mammography with tomosynthesis is performed in both the craniocaudal and mediolateral oblique views along with computer-aided detection (CAD). FINDINGS: There are scattered areas of fibroglandular density (ACR BI-RADS breast composition Category b). Bilateral post lumpectomy changes are stable. There are no significant masses, abnormal calcifications, or other abnormalities. Results are provided to the patient at time of visit by the technologist. MM/MM tomosynthesis diagnostic BI IMPRESSION: There are no significant changes from prior study. ASSESSMENT: BI-RADS BI-RADS 2 - Benign Findings RECOMMENDATION: 1 year F/U This patient's information was entered into a reminder system with a target due date for their next mammogram. Electronically signed by: Charis Khalil DO 07/11/2024 08:04 AM EDT
--- OUTSIDE RECORDS SUMMARY | 2024-07-10 15:19 | XMS_ITS | Encounter Summary ---
Author Organization [employer] Address [address] [facility] [address] [place] [address] Care Team Providers Care Instrument Engineer Name Role Phone Dalila Yang MD Primary Care Provider [phone] Dalila Yang MD Primary Care Provider [phone] Chadwick Rojo MD Unavailable [phone] Encounter Details Date Type Department Care Team (Late st Contact Info) Description 12/28/2022 Abstract [facility] MEDICINE [address] [place], [place] [phone] Dalila Yang MD [address] [place], [place] [phone] Social History Tobacco Use Types Packs/Day Years Used Date Smoking Tobacco: Never Smokeless Tobacco: Never Alcohol Use Standard Drinks/Week Comments Never 0 (1 standard drink = 0.6 oz pur e alcohol) Depression Answer Date Recorded Patient Health Questionnaire-9 Score 4 05/04/2022 Housing Stability Answer Date Recorded What is your housing situation today? I have paris amaro 12/19/[address] you li ve. Do you have problems with any of the following? None of the above 12/19/2022 Food Insecurity Answer Date Recorded Within the past 12 months, y ou worried that your food would run out before you got money to buy more: Never True 12/19/2022 Within the past 12 months,th e food you bought just didn't last and you didn't have enough money to get more: Never True Transportation Answer Date Recorded In the past 12 months, has l ack of transportation kept you from medical appts, meetings, work or from getting things needed for daily living? No 12/19/2022 Utilities Answer Date Recorded In the past 12 months, has t he electric, gas, oil or water company threatened to shut off services in your home? No 12/19/2022 Depression Answer Date Recorded Patient Health Questionnaire-2 Score 2 05/04/2022 Comments Unknown Sex and Gender Information Value Date Recorded Sex Assigned at Female 01/03/2022 10:19 AM EDT Legal Sex Female 10:19 AM EDT Gender Identity Female 01/03/2022 10:19 AM EDT Sexual Orientation Straight 01/03/2022 10 :19 AM EDT documented as of this encounter Plan of Treatment Not on file documented as of this encounter Visit Diagnoses Not on filedocumented in this encounter Additional Health Concerns Assessment Noted Time PHQ-9 Depression Total Score: 4 05/05/19 23 11:06 AM EST documented as of this encounter Care Teams Instrument Engineer Relationship Specialty Start Date End Date Dalila Yang MD [address] [place] [id number] PCP - General Family Medicine 03/06/18 07/10/23 Dalila Yang MD [address] [place] [address] PCP - General Family Medicine 02/14/24 02/28/24 Chadwick Rojo MD [address] [place] [address] Hematology and Oncology 05/01/24 documented as of this encounter
--- OUTSIDE RECORDS SUMMARY | 2024-07-10 15:19 | XMS_ITS | Encounter Summary ---
Author Organization [employer] Address [address] [facility] 7t [place] [address] Care Team Providers Care Reporting Analyst Name Role Phone Dalila Yang MD Primary Care Provider [phone] Chadwick Rojo MD Unavailable [phone] Reason for Visit * Reason Comments Med Refill Encounter Details Date Type Department Care Team ([facility] st Contact Info) Description 08/23/2023 Refill [facility] MEDICINE [address] [place], [place] [phone] Dalila Yang MD [address] [place], [place] [phone] Primary insomnia Social History Tobacco Use Types Packs/Day Years [...] documented as of this encounter Visit Diagnoses Diagnosis Primary insomnia Persistent disorder of initiating or maintaining sleep documented in this encounter Additional Health Concerns Assessment Noted Time PHQ-9 Depression Total Score: 4 05/05/19 23 11:06 AM EST documented as of this encounter Care Teams Reporting Analyst Relationship Specialty Start Date End Date Dalila Yang MD [address] [place] [address] PCP - General Family Medicine 02/14/24 02/28/24 Chadwick Rojo MD [address] [place] [address] Hematology and Oncology 05/01/24 documented as of this encounter
--- OUTSIDE RECORDS SUMMARY | 2024-07-10 15:20 | XMS_ITS | Encounter Summary ---
Author Organization [employer] Address [address] [facility] 7[address] [place] [address] Care Team Providers Care Order Processing Clerk Name Role Phone Dalila Yang MD Primary Care Provider [phone] Dalila Yang MD Primary Care Provider [phone] Chadwick Rojo MD Unavailable [phone] Encounter Details Date Type Department Care Team (Late st Contact Info) Description 07/25/2022 Abstract [facility] MEDICINE [address] [place] [address] Dalila Yang MD [address] [place], [place] [phone] Social History Tobacco Use Types Packs/Day Years Used Date Smoking Tobacco: Never Smokeless Tobacco: Never Depression Answer Date Recorded Patient Health Questionnaire-9 Score 4 05/04/2022 Depression Answer Date Recorded Patient Health Questionnaire-2 [...] on file documented as of this encounter Procedures Procedure Name Priority Date/Time Associated Diagnosis Comments EXTERNAL BREAST BIOPSY Routine 07/19/2022 11:28 AM EDT documented in this encounter Results * (ABNORMAL) External Breast Biopsy (07/19/2022 11:28 AM EDT) Anatomical Region Laterality Modality Breast N/A Mammography Narrative 07/19/2022 11:28 AM EDT Stereotactic biopsy performed results were ductal carcinoma in situ .Recommended left breast lumpectomy us Historical Provider MD ALVES BI PROCEDURES Final R esult documented in this encounter Visit Diagnoses Not on filedocumented in this encounter Additional Health Concerns Assessment Noted Time PHQ-9 Depression Total Score: 4 05/05/19 23 11:06 AM EST documented as of this encounter Care Teams Order Processing Clerk Relationship Specialty Start Date End Date Dalila Yang MD [address] [place] [address] PCP - General Family Medicine 03/06/18 07/10/23 Dalila Yang MD [address] [place] [address] PCP - General Family Medicine 02/14/24 02/28/24 Chadwick Rojo MD [address] [place] [address] Hematology and Oncology 05/01/24 documented as of this encounter
--- OUTSIDE RECORDS SUMMARY | 2024-07-10 15:20 | XMS_ITS | Encounter Summary ---
Author Organization [employer] Address [address] [facility] [address] [place] [address] Care Team Providers Care Block Cleaner Name Role Phone Dalila Yang MD Primary Care Provider [phone] Dalila Yang MD Primary Care Provider [phone] Chadwick Rojo MD Unavailable [phone] Encounter Details Date Type Department Care Team (Late st Contact Info) Description 08/11/2022 Abstract [facility] MEDICINE [address] [place] [address] Dalila Yang MD [address] [place], [place] [phone] Social History Tobacco Use Types Packs/Day Years [...] Procedure Name Priority Date/Time Associated Diagnosis Comments BI BREAST SPECIMEN Routine 08/09/2022 9: 29 AM EDT HM MAMMOGRAPHY Routine 08/02/2022 9:24 AM EDT EXTERNAL BREAST BIOPSY Routine 07/19/2022 9:19 AM EDT MAMMOGRAPHY Routine 07/19/2022 9:17 AM EDT documented in this encounter Results * BI Breast Specimen (08/09/2022 9:29 AM EDT) Anatomical Region Laterality Modality Breast N/A Radiographic Amy ging Narrative 08/09/2022 9:29 AM EDT Left breast lumpectomy performed due to ?? DCIS Historical Provider IMG XR PROCEDURES Final R esult * Hm Mammography (08/02/2022 9:24 AM EDT) Mammogram Abnornal Anatomical Region Laterality Modality Other Narrative 08/02/2022 9:24 AM EDT Left breast lumpectomy performed due to ?? DCIS [facility] Provider HEALTH MAINTENANCE Final Result * External Breast Biopsy (07/19/2022 9:19 AM EDT) Anatomical Region Laterality Modality Breast N/A Mammography Narrative 07/19/2022 9:19 AM EDT Abnormal stereotactic biopsy of left breast results were Ductal carcinoma in situ, nuclear grade 2, cribriform and papillary patterns, with focal necrosis and microcalcifications. please see scanned report ([facility]) Historical Provider IMG BI PROCEDURES Final R esult * (ABNORMAL) Mammography (07/19/2022 9:17 AM EDT) Mammogram Abnormal Anatomical Region Laterality Modality Other Narrative 07/19/2022 9:17 AM EDT Abnormal stereotactic biopsy of left breast results were Ductal carcinoma in situ, nuclear grade 2, cribriform and papillary patterns, with focal necrosis and microcalcifications. please see scanned report ([facility]) Historical Provider HEALTH MAINTENANCE Final Result documented in this encounter Visit Diagnoses Not on filedocumented in this encounter Additional Health Concerns Assessment Noted Time PHQ-9 Depression Total Score: 4 05/05/19 23 11:06 AM EST documented as of this encounter Care Teams Block Cleaner Relationship Specialty Start Date End Date Trey, MD Dalila [address] [place] [id number] PCP - General Family Medicine 03/06/18 07/10/23 Dalila Yang MD [address] [place] [address] PCP - General Family Medicine 02/14/24 02/28/24 Chadwick Rojo MD [address] [place] [address] Hematology and Oncology 05/01/24 documented as of this encounter
--- OUTSIDE RECORDS SUMMARY | 2024-07-10 15:20 | XMS_ITS | Encounter Summary ---
Author Organization [employer] Address [address] [facility] [address] [place] [address] Care Team Providers Care Psychometrist Name Role Phone Dalila Yang MD Primary Care Provider [phone]- [phone] Dalila Yang MD Primary Care Provider [phone] Chadwick Rojo MD Unavailable [phone] Encounter Details Date Type Department Care Team (Late st Contact Info) Description 08/02/2022 Abstract [facility] MEDICINE [address] [place], [place] [phone] Dalila Yang MD [address] [place] [address] Social History Tobacco Use Types Packs/Day Years [...] documented as of this encounter Care Teams Psychometrist Relationship Specialty Start Date End Date Dalila Yang MD [address] [place] [address] PCP - General Family Medicine 03/06/18 07/10/23 Dalila Yang MD [address] [place] [address] PCP - General Family Medicine 02/14/24 02/28/24 Chadwick Rojo MD [address] [place] [address] Hematology and Oncology 05/01/24 documented as of this encounter
--- OUTSIDE RECORDS SUMMARY | 2024-07-10 15:20 | XMS_ITS ---
Author Organization [facility] [place] Address [address] [place] [address] Care Team Providers Care [employer] Manager Name Role Phone Pippa Stephenson Primary Care Provider Unavailabl e BlackPrabha Unavailable [phone] Allergies Allergen (clinical drug ingredient) Drug/Non Drug Allergy documented on EMR Reaction Allergy Type Onset Date Status aspirin Aspirin Unknown Drug Allergy Active Results Component Value Reference Range Notes X ray : Foot, right 3V Reviewed date:04/03/2023 11:28:17 AM Interpretation:See Examination above Performing Lab: Notes/Report: See Examination above REASON FOR VISIT pcp: 02/03/23, Painful Toe(s), Ingrown Nail Medications Medication SIG (Take, Route, Fr equency, Duration) Notes Start Date End Date Status Zometa 1x per year Active Lisinopril 10 MG 1 tablet Orally Once a day Active Omeprazole 20 MG 1 capsule 30 minutes before morning meal Orally Once a day Active Multivitamin Active Anastrozole 1 MG 1 tablet Orally Once a day Active Social History Tobacco Use: Social History [...] Are you an other tobacco user? 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) Active confirmed Problem [id number] Arthritis of katherine nt of toe (M19.079) Active confirmed Vital Signs Height 5 ft 4 in in 04/03/2023 Weight 197 lbs 04/03/2023 BMI 33.81 kg/m2 04/03/2023 Procedures Procedure Date Ordered Date Performed Result Body Sit e 81969-Aymyrrff Plate 04/03/2023 N/A Encounters Encounter Location Date Provider Diagnosis [facility] [address] [address] 04/03/2023 Prabha Black Pain in right toe(s) M79.674 ; Other hammer toe(s) (acquired), right foot M20.41 ; Arthritis of joint of lesser toe, right M19.071 ; Ingrown nail L60.0 ; Acquired hallux interphalangeus of right foot M20.11 and Arthritis of joint of toe M19.079 Assessments Encounter Date Diagnosis (ICD Code) Assessment Notes Treatment Notes Treatment Clinical Notes Section Notes 04/03/2023 Pain in right toe(s) (ICD-10 - M79.674) 04/03/2023 Other hammer toe(s) (acquired), right foot (ICD-10 - M20.41) 04/03/2023 Arthritis of joint of lesser toe, right (ICD-10 - M19.071) 04/03/2023 Ingrown nail (ICD-10 - L60.0) 04/03/2023 Acquired hallux interphalangeus of right foot (ICD-10 - M20.11) 04/03/2023 Arthritis of joint of toe (ICD-10 - M19.079) Plan Of Treatment Pending Test Test Name Order Date 91684-Trzldsdd Plate 04/03/2023 Next Appt Details Follow Up: 2 Weeks, Reason: Procedure Notes * Category Sub-Category Detail Notes Nail Avulsion Procedure A fine sterile e levator was placed between the eponychium, nail fold, and nail plate to separate the structures. A sterile nail splitter, and/or sterile 316 blade, was then used to longitudinally section the nail along its entire length through the eponychium to the area under the nail fold. The offending portion of nail was from the nail bed with a rolling action and then removed with a hemostat. No underlying bone was identified. There was minimal bleeding as hemostasis was achieved through the temporary use of either a digital tourniquet or the aforementioned local with epinephrine. A bacitracin sterile dressing was applied. Local wound aftercare instructions were discussed and dispensed. The patient was informed of both conservative and future surgical procedures to prevent recurrence. Tylenol or Motrin was recommended for pain or discomfort (44291) , Pt DEFERS matricectomy Anesthesia 3cc of 1 percent Lid ocaine Plain local anesthesic utilizing aseptic technique, Location Lateral nail border , T5 Progress Notes * Luis BARROB:1960 ([age] yo F)Acc No.[id number]:04/03/2023 Progress Notes Patient:?Payton Barr Provider:?Prabha Brown DPM :1960???Age:63 Y???Sex:Female D ate:04/03/2023 Address:[address] [place], [place] [id number] Pcp:Pippa Stephenson Subjective: * Chief Complaints: * ???Pcp: 02/03/23Painful Toe(s )Ingrown Nail * HPI: ???Toe pain:?Nature:?tenderness.?Location:?Right foot.?Duration:?several months.?Course:?worse.?Aggrevated by:?any pressure, shoes.?Treatments:?rest/alter normal daily activity, change in shoes.? * ROS:?General/Constitutional:?Nausea?denies.?Vomiting?denies.?Hunger Thirst?denies.?Loss appetite?denies.?Chills?denies.?Fatigue?denies.?Fever?denies.?Night Sweats?admits.?Unexplained weight loss?denies.?Unexplained weight gain?denies.?HEENTM:?Dentures?admits.?Dizziness?denies.?Glasses/contacts?denies.?Retinopathy?de nies.?Blurred/double vision?denies.?TMJ?denies.?Discharge/drainage?denies.?Implants?denies.?Sore throat?denies.?Dental implants?denies.?Hard of hearing ?denies.?Difficulty chewing/swallowing/speaking?denies.?Nose bleeds?denies.?Sore mouth?denies.?Respiratory:?On Oxygen?denies.?Pneumonia/pleurisy?denies.?Bronchitis?denies.?Emphysema?denies.?C oughing?denies.?Cough blood?denies.?Shortness of breath?denies.?Wheezing?denies.?Cardiovascular:?Pacemaker?denies.?MVP?denies.?WPW?denies.?CHF?denies.?Heart attack?denies.?Septal defect?denies.?Rapid beat?denies.?Chest pain ?denies.?Atrial Fib.?denies.?Murmur/Palpitations?denies.?Gastrointestinal:?Hemorrhoids?denies.?Stomach/Abdominal pain?denies.?Dark blood stool?denies.?Irritable bowel ?denies.?Constipation?denies.?Diarrhea?denies.?Hematology:?Swelling?denies.?Clots?denies.?Varicose Veins?denies.?Bruising?admits.?Bleeding problem?denies.?Genitourinary:?Blood urine?denies.?Frequent/Painfu/urination/bladder control?denies.?Kidney stones?denies.?Infection (UTI)?denies.?Nephropathy?denies.?sex trans dis (STD)?denies.?Prostate?denies.?Musculoskeletal:?Hammertoes?denies.?Bunions?denies.?Back Pain?denies.?Muscle Cramps/ Resting?denies.?Muscle cramps / walking?denies.?Generalized aches and pains?denies.?Weakness?denies.?Integ.:?Rodriguez?denies.?Scars?denies.?Corns/calluses?denies.?Ingrown nails?admits.?Painful nails?denies.?Open Sores?denies.?Rashes?denies.?Neurologic:?Difficulty sleeping?denies.?Brain disorder?denies.?Numbness?denies.?Balance trouble?denies.?Confusion?denies.?Fainting/blackouts?denies.?Tingling?denies.?Tr emors?denies.? * Medical History:? * Surgical History:?knee repla cement 04/25/2017breast cancer 03/2011, 08/02/2022rotator cuff 2013 * Hospitalization/Major Diagno stic Procedure:?Denies Past Hospitalization * Family History:?Mother: arsalan sanon, diagnosed with Family history of arthritis, Other malignant neoplasm of unspecified site.?Father: , kidney/liver disease, diagnosed with Diabetic - NIDDM.?Siblings: diagnosed with Other malignant neoplasm of unspecified site, Family history of arthritis, Unspecified essential hypertension.? * Social History:?Tobacco Use:?Tobacco Use/Smoking?Are you a:?former smoker ?Additional Findings: Tobacco Non-User?Current non-smoker ?Tobacco use other than smoking?Are you an other tobacco user??No ???Drugs/Alcohol:?Drugs?Have you used drugs other than those for medical reasons in the past 12 months??No ?Alcohol Screen?Did you have a drink containing alcohol in the past year??No ?Points?0 ?Interpretation?Negative ???Miscellaneous:?Caffeine: yes, frequency:once a week, soda, decaf coffee. ?Children: yes, 2. ?Marital status: . ?Occupation: weeks/months/years, Unemployed. * Medications:?TakingZometa , Notes: 1x per yearMultivitamin Anastrozole 1 MG Tablet 1 tablet Orally Once a dayLisinopril 10 MG Tablet 1 tablet Orally Once a dayOmeprazole 20 MG Capsule Delayed Release 1 capsule 30 minutes before morning meal Orally Once a dayMedication List reviewed and reconciled with the patientTaking Zometa , Notes: 1x per yearTaking Multivitamin Taking Anastrozole 1 MG Tablet 1 tablet Orally Once a dayTaking Lisinopril 10 MG Tablet 1 tablet Orally Once a dayTaking Omeprazole 20 MG Capsule Delayed Release 1 capsule 30 minutes before morning meal Orally Once a dayMedication List reviewed and reconciled with the patient * Allergies:?Aspirinyes[Allerg ies Verified] Objective: * Vitals:?Ht:5 ft 4 in, Wt:197 , BMI:33.81, Shoe size: 8-8.5, Ht-cm: 162.56 cm, Wt- k.36 kg. * Examination: ???General Examination: ?GENERAL APPEARANCE:?Reveals a pleasant, alert, well nourished, well- developed, well hydrated individual, who demonstrates proper attention to hygiene/body habitus, and is in no acute distress, Pt serves as own historian for office visit today.?ORIENTED:?person, place, and time.?Neurological: ?SENSORY:?Neurological exam reveals intact sensorium, pain sensation normal, vibration sensation intact, pinprick sensation is normal in the lower extremities, Pt denies, anesthesia, burning, paresthesia, tingling, B/L.?TINEL'S COMPRESSION:?Negative tarsal tunnel, nona pedis, and medial calcaneal nerves.?Orthopedic: ?MUSCLE STRENGTH:?5/5 all groups in a symmetrical fashion, B/L.?BUNION:?( + ) Hallux Interphalangeus , inflammation present , erythema at exostosis right , ROM is guarded due to discomfort , RIGHT.?DIGITAL DEFORMITIES:?Digital contracture, PIPJ, 2-5 B/L, incompl-reducible with WB, or to push-up test, no over, nor underlapping.?FOOTWEAR:? shoe gear properties exacerbate patients foot/toe deformity.?Vascular: ?DP PULSES:?2/4, B/L.?PT PULSES:?2/4, B/L.?CAPILLARY FILL TIME:?immediate, all digits, B/L.?SKIN TEMPERTURE GRADIENT OF THE LOWER EXTERMITIES:?normal, warm to cool, proximal to distal, B/L, B/L.?HAIR GROWTH/TEXTURE/ELASTICITY/TURGOR:?normal, B/L.?PIGMENTATION:?normal, B/L.?Ingrown Nail: ?INSPECTION:?Reveals nail incurvation, pain on palpation, groove hypertrophy , groove ischemia Lateral nail border, , T5.?X-Rays - IMAGING REPORT: ?Clinical Indication(s):? Evaluate Biomechanical Deformity.?Views:? 3 views of Foot, AP, LO, MO, RIGHT.?Findings:? normal bone and soft tissue density consistent for patients age and sex.?Digits:? show asymmetrical joint space narrowing at the PIPJ consistent with clinical finding of hammertoe deformity.?HAV:?increased Hallux Interphalangeus angle with asymmetrical IPJ and joint degeneration.?Fracture:? Negative fractures identified.? Assessment: * Assessment: 1.?Pain in right toe(s) - M7 9.674 (Primary)?2.?Other hammer toe(s) (acquired), right foot - M20.41?3.?Arthritis of joint of lesser toe, right - M19.071?4.?Ingrown nail - L60.0?5.?Acquired hallux interphalangeus of right foot - M20.11, Dx New problem, Prognosis Uncertain (4),Acute problem, Complicated w/ Multiple Tx Options(4)?6.?Arthritis of joint of toe - M19.079? Plan: * Treatment: 2.?Ingrown nail?Procedure: 47999-Hawexkap Plate * Procedures:?Nail Avulsion:?Location?Lateral nail border , T5.?Anesthesia?3cc of 1 percent Lidocaine Plain local anesthesic utilizing aseptic technique, ?.?Procedure?A fine sterile elevator was placed between the eponychium, nail fold, and nail plate to separate the structures. A sterile nail splitter, and/or sterile 316 blade, was then used to longitudinally section the nail along its entire length through the eponychium to the area under the nail fold. The offending portion of nail was from the nail bed with a rolling action and then removed with a hemostat. No underlying bone was identified. There was minimal bleeding as hemostasis was achieved through the temporary use of either a digital tourniquet or the aforementioned local with epinephrine. A bacitracin sterile dressing was applied. Local wound aftercare instructions were discussed and dispensed. The patient was informed of both conservative and future surgical procedures to prevent recurrence. Tylenol or Motrin was recommended for pain or discomfort (06086) , Pt DEFERS matricectomy.? * Procedure Codes:?93789 Avuls ion Plate, Modifiers: XS 45335 X-RAY EXAM OF RIGHT FOOT 3V, Modifiers: 26 , RT * Preventive Medicine:? ??Counseling:?Discussion:?-04: Office or other outpatient visit for the evaluation and management of a new patient, which required a medically appropriate history and/or examination and MODERATE level of DECISION MAKING for: 1 OR MORE CHRONIC PROBLEM(S) THATS WORSENING, 2 STABLE CHRONIC PROBLEMS, A NEWLY DIAGNOSED PROBLEM WITH UNCERTAIN PROGNOSIS, AN ACUTE COMPLICATED INJURY WITH MULTIPLE TREATMENT OPTIONS, OR AN ACUTE PROBLEM WITH ACCOMPANYING SYSTEMIC SYMPTOMS, THAT POSE(S) A MODERATE RISK OF MORBIDITY. THIS CONDITION MAY ALSO INCLUDE RX DRUG MANAGEMENT, OR A DECISON FOR MINOR SURGERY. The visit on the day of the encounter encompassed interpreting the data and educating the patient as to the nature of their condition, treatment options available according to their individual PMH, meds, allergies, and overall health/living conditions, as well as any potential risks or complications that may occur from a failure to adhere to, and participate in, the recommended course of therapy. The discussion included a complete verbal, and/or written explanation of the examination results, any x-rays taken, the proposed diagnosis, and outline of the treatment plan. A schedule for future care needs was also explained. The patient verbalized an understanding of the instructions at this time and agreed to be an active participant in their treatment. If the patient should think of any questions or concerns after the visit, I have encouraged the patient to call the office.?BioMech.:?Discussed and reviewed the X-rays with the patient. We discussed how the findings relate to the patients symptoms/complaints. Answered any and all questions., I discussed the Pts foot biomechanics with them and how it relates to their problem, The patient and I reviewed the types of shoes they should be wearing; my recommendation includes obtaining a shoe with a good firm sole, plenty of toe room, and proper arch support.?Podiatric Surgery Counseling:?The Patient was counseled on the x-rays,treatment options, and the importance of following all homecare instructions, Surgical procedures to treat the patients foot problem were discussed. We reviewed the risks of the procedure (described below) vs not having the procedure (persistent pain, deformity, risk for skin ulceration/infection, loss of toe). We discussed the potential procedure complications including, but not limited to: pain, swelling, bleeding, scarring, numbness, infection, delayed/non healing, floppy/unstable/shorthened toe, recurrence, failure of the procedure, overcorrection leading to plantarflexed/downward positioned toe, recurrence, need for further surgery, as well as the possibility for loss of the toe itself. We discussed the use of IV/Local anesthesia, and the usual post-op course for healing. No guarentees were given. The patient verbally indicated a full understanding of the above conversation, and any other of their questions were answered to their satisfaction, We elected to try conservative treatment at the present time,, Pt deferred any surgery at the present time.?Shoe Gear Counseling:?The patient and I reviewed the types of shoes they should be wearing. My recommendation included obtaining a well-fitted shoe with a good supportive, non-foldable nor twistable sole, plenty of toe/room for the forefoot, and proper arch support. Based on todays examination, I recommended the patient look for new shoes, by having their feet professionally measured. We discussed that generally the best time of the day for a shoe fitting is the afternoon. Different shoes types and brands to best match the patients occupation and vocation were discussed. Specific brand selection will be up to the patient, their individual foot condition/deformities, and fit. The patient and I reviewed the standard new shoe break in period by wearing them for a few hours a day while checking for redness or sores as wear time is increased. The patient verbally confirmed to understanding the information discussed.? * Follow Up:?2 Weeks * Images: * Sign off status: Completed true * Provider:?Prabha Brown DPM Date:?2023 Generated for Kevin gonzalez/Alma/Thi on:?07/10/2024 03:20 PM EDT History and Physical Notes * HPI (History of Present Illness) Category Sub-Category Detail Notes Category Not es Toe pain Nature: tenderness Location: Right foot Duration: several months Course: worse Aggravated by: any pressure, shoes Treatments: rest/alter normal da jane activity, change in shoes Examination Category Sub-Category Detail Notes Category Not es Ingrown Nail INSPECTION: Reveals nail inc urvation, pain on palpation, groove hypertrophy , groove ischemia Lateral nail border, , T5 Neurological SENSORY: Neurological exa m reveals intact sensorium, pain sensation normal, vibration sensation intact, pinprick sensation is normal in the lower extremities, Pt denies, anesthesia, burning, paresthesia, tingling, B/L TINEL'S COMPRESSION: Negative tarsal woody ankit, nona pedis, and medial calcaneal nerves Orthopedic BUNION: ( + ) Hallux Int erphalangeus , inflammation present , erythema at exostosis right , ROM is guarded due to discomfort , RIGHT FOOTWEAR EVALUATION: shoe gear propertie s exacerbate patients foot/toe deformity DIGITAL DEFORMITIES: Digital contracture , PIPJ, 2-5 B/L, incompl-reducible with WB, or to push-up test, no over, nor underlapping MUSCLE STRENGTH: 5/5 all groups in a symmetrical fashion, B/L General Examination GENERAL APPEARANCE: Reveals a pleasant, alert, well nourished, well-developed, well hydrated individual, who demonstrates proper attention to hygiene/body habitus, and is in no acute distress, Pt serves as own historian for office visit today ORIENTED: person, place, and t bjorn Vascular DP PULSES (B): 2/4, B/L PT PULSES (B): 2/4, B/L CAPILLARY FILL TIME: immediate, all digi ts, B/L TEMPERTURE GRADIENT (C): normal, warm to cool, proximal to distal, B/L, B/L TROPHIC CONDITION-TEXTURE/ELASTICITY/TURGOR/HAIR GROWTH (B): normal, B/L PIGMENTATION: normal, B/L X-Rays - IMAGING REPORT Findings: normal b one and soft tissue density consistent for patients age and sex Fracture: Negative fractures i dentified Digits: show asymmetrical jose eduardo int space narrowing at the PIPJ consistent with clinical finding of hammertoe deformity HAV: increased Hallux Int erphalangeus angle with asymmetrical IPJ and joint degeneration Views: 3 views of Foot, AP, LO, MO, RIGHT Clinical Indication(s): Evaluate Biomech anical Deformity
--- OUTSIDE RECORDS SUMMARY | 2024-07-10 15:20 | XMS_ITS | Clinical Summary ---
Author Organization [employer] Address [address] [place] [address] [address] [place] [address] Care Team Providers Care Piano Tuner Name Role Phone Chadwick Rojo MD Unavailable [phone] Allergies Active Allergy Reactions Criticality Noted Date Comments Aspirin 09/02/2011 Medications zoledronic acid (Zometa) 4 MG/5ML injection infuse 5 milliliter by intravenous route every 3 weeks over Active melatonin (Melatonin Maximum Strength) 5 MG tabletIndication s:Primary insomnia TOME MIKY TABLETA TODOS LOS MOSER AL ACOSTARSE CUANDO SEA NECESARIO PARA DORMIR 90 tablet 3 3 Active anastrozole (Arimidex) 1 MG chemo tablet 3 Active ibuprofen 600 MG tablet TOME MIKY TABLETA CADA SEIS HORAS CUANDO SEA NECESARIO PARA EL DOLOR 3 Active omeprazole (PriLOSEC) [address] capsule TOME MIKY C PSULA TODOS LOS D 90 capsule 3 3 Active lisinopril 10 MG tabletIndication s:Essential (primary) hypertension TOME MIKY TABLETA TODOS LOS MOSER 90 tablet 3 3 Active Active Problems Problem Noted Date Diagnosed Date Cardiac risk counseling 01/30/2024 Overview (01/30/2024): Calculated 01/30/24:borderline risk The 10-year ASCVD risk score (Sekou SETHI, et al., 2019) is: 7.7% Values used to calculate the score: Age: 63 years Sex: Female Is Non- : No Diabetic: No Tobacco smoker: No Systolic Blood Pressure: 131 mmHg Is BP treated: Yes HDL Cholesterol: 65 mg/dL Total Cholesterol: 221 mg/dL No results found for: LDLCHOLCAL -Atherosclerotic Cardiovascular Disease (ASCVD) Risk Calculator is intended for a person age 40-79 without ASCVD and with LDL-cholesterol < 190/mg/dl to assesses the chances of developing heart disease over the next 10 years. -ACC/AHA risk categories based on a person's estimated 10-year risk of CVD: ?Low - <5 percent ?Borderline risk - 5 to 7.4 percent ?Intermediate risk- 7.5 to 19.9 percent ?High risk- >=20 percent -Tobacco cessation: not applicable -Statin therapy:N/A -Importance of moderate physical activity and nutrition interventions discussed. Osteopenia 08/24/2022 Overview (05/24/2024): -It revealed osteopenia with a T-score of-1.6. -currently on Reclast 5 mg Bone density due September [address] Rojo -DEXA 10/25/23 1. DIAGNOSIS: Osteopenia based on the lowest T-score value of -1.4 in the lumbar spine applying World Health Organization criteria. -DEXA 05/18/24 1. DIAGNOSIS: Osteopenia based on the lowest T-score value of -1.4 in the lumbar spine applying World Health Organization criteria. Assessment & Plan (08/24/2022 1:58 PM EDT): -It revealed osteopenia with a T-score of-1.6. -currently on Reclast 5 mg Bone density due September [address] Rojo [facility] care 08/24/2022 Overview (08/24/2022): Next PE and PAP due after 12/26/2022. Assessment & Plan (08/24/2022 2:15 PM EDT): Next PE and PAP due after 12/26/2022. Tubular adenoma 05/03/2022 Overview (05/04/2022): colonoscopy 09/18/[address] Reyes significant for tubular adenoma, next due 5 years. Assessment & Plan (08/24/2022 1:58 PM EDT): colonoscopy 09/18/[address] Reyes significant for tubular adenoma, next due 5 years. Assessment & Plan (05/04/2022 9:35 AM EST): colonoscopy 09/18/[address] Reyes significant for tubular adenoma, next due 5 years. Postmenopausal bleeding 05/24/2017 Essential (primary) hypertension 04/28/2017 Overview (01/30/2024): -Blood pressure is at goal -Continue lifestyle modifications -Continue current medications Assessment & Plan (05/04/2022 11:20 AM EST): Well controlled. Gastro-esophageal reflux disease without esophag itis 04/28/2017 Presence of left artificial knee joint 8 Overview (05/04/2022): - s/p left knee replacement 04/25/17. Doing well. Assessment & Plan (08/24/2022 1:58 PM EDT): - s/p left knee replacement 04/25/17. Doing well. Assessment & Plan (05/04/2022 9:35 AM EST): - s/p left knee replacement 04/25/17. Doing well. Unspecified abnormalities of gait and mobility 0 04/28/2017 Depressive disorder 09/02/2011 Overview (05/04/2022): Not active. No suicidal or homicidal ideation. Referral for psychotherapy and psychiatry offered. Assessment & Plan (08/24/2022 1:57 PM EDT): Not active. No suicidal or homicidal ideation. Referral for psychotherapy and psychiatry offered. Assessment & Plan (05/04/2022 9:34 AM EST): Not active. No suicidal or homicidal ideation. Referral for psychotherapy and psychiatry offered. Intraductal carcinoma in situ of breast 09/02/19 12 Overview (02/24/2024): Hx of DCIS of Right Breast 2016 and 2022 -status post surgery and radiation 2016 -completed Tamoxifen, July 2016 -mammogram 07/04/2022 abnormal requiring magnification -magnification views from 07/14/22 revealed: New grouped calcifications mid lower inner left breast. BI-RADS 4: Suspicious. -stereotactic biopsy of LEFT breast done on 07/19/22 revealed DCIS, grade 2, with cribriform and papillary tissue with focal necrosis and microcalcifications. -lumpectomy on 08/02/[address] Valle revealed DCIS, nuclear grade 2, negative margins (1 mm to lateral.) Left additional lateral margin excision: Focal DCIS, nuclear grade 2, negative margins, (6 mm to new margin). - further options include aromatase inhibitor therapy and post lumpectomy radiation. -continue Aromatase inhibitor: Arimidex. -referral to [facility] for radiation placed by Dr. Rojo -MRI 02/23/24 s/p lumpectomies, no evidence of maligancy Assessment & Plan (08/24/2022 1:58 PM EDT): Hx of DCIS of Right Breast 2016 -status post surgery and radiation. -completed Tamoxifen, July 2016. -mammogram on 07/04/2022 abnormal requiring magnification -agnification views from 07/14/22 revealed: New grouped calcifications mid lower inner left breast. BI-RADS 4: Suspicious. -stereotactic biopsy of LET breast done on 07/19/22 reveale DCIS, grade 2, with cribriform and papillary tissue with focal necrosis and microcalcifications. - lumpectomy on 08/02/[address] Valle revealed DCIS, nuclear grade 2, negative margins (1 mm to lateral.) Left additional lateral margin excision: Focal DCIS, nuclear grade 2, negative margins, (6 mm to new margin). - further options include aromatase inhibitor therapy and post lumpectomy radiation. -continue Aromatase inhibitor: Arimidex. -referral to [facility] for radiation placed by Dr. Rojo Assessment & Plan (05/04/2022 11:32 AM EST): Pt had a normal mammogram on 03/09/11 . BIRADS 2 benign. She noted a mass on her R breast and an ultrasound done on 05/04/11 revealed a suspicious mass. 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 ER positive, AK positive in 51-100% of tumor cells. On 06/13/11 she underwent needle localization biopsy of breast. 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 Tumor extended to kalen-inferior margin, present within 0.5cm of the posterior margin. She had reexcision of breast biopsy specimen revealing focal atypical lobular hyperplasia and no evidence of residual DCIS. Her surgeon is Dr. Gonzalez. She completed radiation with Dr. Weldon . She was started on Tamoxifen with Dr. Rojo on 07/07/11 and completed 07/2016. - Last saw Dr Gonzalez 06/28/2018 recommending FU in 6 months. - Mammo 06/24/2020 BI RADS 2 benign - last visit with Dr. Rojo was 08/13/2020 - Last seen oncologist 08/13/21. -Last mammo 07/02/21 BI RADS 1 negative - Mammo ordered 05/04/2022. Anxiety 08/24/2011 Shoulder pain 08/24/2011 Resolved Problems Problem Noted Date Diagnosed Date Resolved Date History of arthroplasty of left knee 08/31/2021 05/03/2022 Arthropathy, unspecified 04/28/2017 Muscle weakness (generalized) 04/28/2017 05/03/2022 Other injury of muscle(s) an d tendon(s) of the rotator cuff of left shoulder, subsequent encounter 04/28/2017 05/03/2022 Unilateral primary osteoarthritis, left knee 8 05/03/2022 Weakness 04/28/2017 05/03/2022 Immunizations Name Administration Dates Next Due Influenza injectable quadrivalent preservative f ree 12/09/2020 Tdap 12/17/2021,09/02/2011 Zoster, Recombinant 02/22/2022,12/17/2021 Social History Tobacco Use Types Packs/Day Years Used Date Smoking Tobacco: Never Smokeless Tobacco: Never Tobacco Cessation:Counseling Given: Not Answered Alcohol Use Standard Drinks/Week Comments Never 0 [...] Orientation Straight 01/03/2022 10 :19 AM EDT Last Filed Vital Signs Vital Sign Reading Time Taken Comments Blood Pressure 131/80 08/24/2022 1:56 PM EDT Pulse 66 08/24/2022 1:56 PM EDT Temperature 36.7 ??C (98.1 ??F) 08/24/2022 1:56 PM ED T Respiratory Rate 20 08/24/2022 1:56 PM EDT Oxygen Saturation 98% 08/24/2022 1:56 PM EDT Inhaled Oxygen Concentration - - Weight 85.3 kg (188 lb) 08/24/2022 1:56 PM EDT Height 162.6 cm (5' 4 ) 08/24/2022 1:56 PM EDT Body Mass Index 32.27 08/24/2022 1:56 PM EDT Plan of Treatment Health Maintenance Due Date Last Done Comments CT Colonography 1958 FIT DNA/Cologuard 1958 FIT 1958 FOBT 1960 Sigmoidoscopy 1958 Alcohol/Substance Use Screening 1970 Hepatitis C Screening 02/16/1976 Depression Screening 05/05/2023 05/04/2022, 05/05/19 23 SDOH Screening 05/05/2023 05/04/2022 Tobacco Screening 08/25/2023 08/24/2022 COVID-19 Vaccine ( season) 2023 02/11/2021, 06/09/2020, 05/12/2020 Influenza Vaccine (#1) 2023 , 02/03/2023, 12/09/2020, Additional history exists Diagnostic Breast Imaging 01/30/20252023, 08/02/2022, 07/19/2022, Additional history exists Colonoscopy 09/18/2025 09/18/2020 Colorectal Cancer Screening 09/18/2025 Lipid Panel 12/17/2026 12/17/2021, 05/08/2020 DTaP/Tdap/Td Vaccines (3 - Td or Tdap) 12/18/2031 12/17/2021, 09/02/2011 RSV Patients and Patients Aged 60 years or older (1 - 1-dose 75+ series) 2033 HPV/Cotest Discontinued 12/17/2021 Pap Smear Discontinued 12/17/2021, 12/17/2021 Zoster Vaccines Completed 02/22/2022, 12/17/2021 Pneumococcal Vaccine: 50+ Years Completed 02/03/2023 Cervical Cancer Screening Discontinued HIB Vaccines Aged Out No longer eligi ble based on patient's age to complete this topic HPV Vaccines Aged Out No longer eligi ble based on patient's age to complete this topic Hepatitis A Vaccines Aged Out No long er eligible based on patient's age to complete this topic Hepatitis B Vaccines Aged Out No long er eligible based on patient's age to complete this topic IPV Vaccines Aged Out No longer eligi ble based on patient's age to complete this topic Meningococcal Vaccine Aged Out No evette akua eligible based on patient's age to complete this topic RSV under 20 months Aged Out No longe r eligible based on patient's age to complete this topic Rotavirus Vaccines Aged Out No longer eligible based on patient's age to complete this topic Procedures Procedure Name Priority Date/Time Associated Diagnosis Comments BI MR BREAST W AND WO CONTRAST BILATERAL Routine 01/31/2024 1:50 PM EST LIPID PANEL, STANDARD Routine 12/17/2021 11:26 AM EDT THINPREP IMAGING PAP AND HPV MRNA E6/E7, WITH CT/NG, TRICHOMONAS Routine 12/17/2021 10:46 AM EDT PAP SMEAR Routine 12/17/2021 12:00 AM EDT HM COLONOSCOPY Routine 09/18/2020 from Last 3 Months or Most Recently Relevant to Health Maintenance Results * BI MR Breast w and w/o Contrast Bilateral (01/31/2024 1:50 PM EST) Anatomical Region Laterality Modality Breast Bilateral Magnetic Resonan ce 01/31/2024 1:50 PM EST Narrative 02/23/2024 2:52 PM EST ? [facility] ?[address] ?[place] [address] ? Magnetic Resonance Report ? Signed ? Patient: Payton Barr I ?MR#: [id number] ? : 1960 ?Acct:[id number] ? Age/Sex: 63 / F ?ADM Date: 01/31/24 ? Loc: HO.MRI ? Attending Dr: Chadwick Rojo MD ? Ordering Physician: Chadwick Rojo MD ?? Date of Service: 01/31/24 ?? Procedure(s): MR breast BI wo/w con ?? Accession Number(s): [id number] ? cc: Dalila Yang MD; Chadwick Rojo MD ? EXAMINATION: ?? MR BREAST WITHOUT AND WITH CONTRAST, BILATERAL ? CLINICAL INFORMATION: ?? High risk strong family history of breast cancer. Personal history of ?? right breast cancer in 2011 status post lumpectomy. Personal history of ?? left breast cancer in 2022 status post lumpectomy. ? COMPARISON: ?? Comparison is made with available prior examinations. ? TECHNIQUE: ?? MR imaging of the breast was performed using T1, T2 and fat saturated ?? techniques. Dynamic multiphase imaging was also performed after ?? administration of intravenous gadolinium contrast agent. Computer ?? generated 3-D reconstruction was utilized by the radiologist in the ?? interpretation of this examination. ? FINDINGS: ?? There is scattered fibroglandular breast tissue with mild background ?? enhancement. ? LEFT BREAST: ?? Postsurgical changes. ?? No suspicious enhancing masses or nonmass enhancement. ?? No architectural distortion. ?? No internal mammary or axillary adenopathy. ? RIGHT BREAST: ?? Postsurgical changes. ?? No suspicious enhancing masses or nonmass enhancement. ?? No architectural distortion. ?? No internal mammary or axillary adenopathy. ? Limited views of the chest and abdomen are unremarkable. ? MR/MR breast BI wo/w con ?? IMPRESSION: ?? Post bilateral lumpectomies. No MRI evidence of malignancy. ? ASSESSMENT: ?? LEFT BREAST: BI-RADS 2 benign. ? RIGHT BREAST: BI-RADS 2 benign. ? RECOMMENDATIONS: ?? Annual screening mammogram and annual screening MRI. ? Electronically signed by: ??Charis Khalil DO ??02/23/2024 02:50 PM EST ? Dictated By: ?Charis Khalil DO ? Signed By: ?<Electronically signed by Charis Khalil, DO in OV> ? 02/23/24 1450 ? DD/ 1350 ? TD/TT: 01/31/24 1430 ? Cognos Developer: ? Procedure Note Yousuf Blood - 02/23/[address] [address] Magnetic Resonance Report Signed Patient: Payton Barr IMR#: [id number] : 8Acct:[id number] Age/Sex: 63 / FADM Date: 01/31/24 Loc: HO.MRI Attending Dr: Chadwick Rojo MD Ordering Physician: Chadwick Rojo MD Date of Service: 01/31/24 Procedure(s): MR breast BI wo/w con Accession Number(s): [id number] cc: Dalila Yang MD; Chadwick Rojo MD EXAMINATION: MR BREAST WITHOUT AND WITH CONTRAST, BILATERAL CLINICAL INFORMATION: High risk strong family history of breast cancer. Personal history of right breast cancer in 2011 status post lumpectomy. Personal history of left breast cancer in 2022 status post lumpectomy. COMPARISON: Comparison is made with available prior examinations. TECHNIQUE: MR imaging of the breast was performed using T1, T2 and fat saturated techniques. Dynamic multiphase imaging was also performed after administration of intravenous gadolinium contrast agent. Computer generated 3-D reconstruction was utilized by the radiologist in the interpretation of this examination. FINDINGS: There is scattered fibroglandular breast tissue with mild background enhancement. LEFT BREAST: Postsurgical changes. No suspicious enhancing masses or nonmass enhancement. No architectural distortion. No internal mammary or axillary adenopathy. RIGHT BREAST: Postsurgical changes. No suspicious enhancing masses or nonmass enhancement. No architectural distortion. No internal mammary or axillary adenopathy. Limited views of the chest and abdomen are unremarkable. MR/MR breast BI wo/w con IMPRESSION: Post bilateral lumpectomies. No MRI evidence of malignancy. ASSESSMENT: LEFT BREAST: BI-RADS 2 benign. RIGHT BREAST: BI-RADS 2 benign. RECOMMENDATIONS: Annual screening mammogram and annual screening MRI. Electronically signed by: Charis Khalil DO 02/23/2024 02:[address] [facility] Dictated By: Charis Khalil DO Signed By: <Electronically signed by Charis Khalil DO in OV> 02/23/24 1450 DD/ 1350 TD/TT: 01/31/24 1430 Cognos Developer: [facility] External Provider IMG MRI PROCEDURES Final Result * (ABNORMAL) LIPID PANEL, STANDARD (12/17/2021 11:26 AM EDT) Chol/HDLC Ratio 3.4 <5.0 (calc) CONVERTED LEGACY LABS Cholesterol, Total 221(H) <200 mg/dL CONVERTED [facility]GACY LABS HDL Cholesterol 65 > OR = 50 mg/dL CONVERTED [facility]GACY [facility] LDL Cholesterol 128(H) mg/dL (calc) CONVERTED LEGACY LABS Comment: Reference range: <100 ?? Desirable range <100 mg/dL for primary prevention; ?? <70 mg/dL for patients with CHD or diabetic patients ?? with > or = 2 CHD risk factors. ?? LDL-C is now calculated using the Carrol ?? calculation, which is a validated novel method providing ?? better accuracy than the Friedewald equation in the ?? estimation of LDL-C. ?? Milo HELMS et al. TOÑITO. 2013;310(19): 3819-7949 ?? (http://AllTrails[employer]/faq/CQT086) Non-HDL Cholesterol 156(H) <130 mg/dL (calc) CONVERTED LEGACY LABS Comment: For patients with diabetes plus 1 major ASCVD risk ?? factor, treating to a non-HDL-C goal of <100 mg/dL ?? (LDL-C of <70 mg/dL) is considered a therapeutic ?? option. Triglycerides 167(H) <150 mg/dL CONVE RTED LEGACY LABS 12/17/2021 11:2 6 AM EDT Dalila Yang MD LAB BLOOD ORDERABLES Final Result CONVERTED LEGACY LABS * THINPREP TIS PAP AND HPV mRNA E6/E7, CT/NG, TRICH (12/17/2021 10:46 AM EDT) Chlamydia trachomatis RNA, TMA, Urogenital NOT DETECTED NOT DETECTED CONVERTED [facility]GAC[facility] LABS Clinical Information: None given CONVERTED LEGACY LABS COMMENT SEE COMMENT PIOE D LEGACY LABS Comment: The analytical performance characteristics of this assay, when used to test SurePath(TM) specimens have been determined by [email or web address]. The modifications have not been cleared or approved by the FDA. This assay has been validated pursuant to the CLIA regulations and is used for clinical purposes. ?? For additional information, please refer to https://AllTrails.[employer]/faq/CGE194 (This link is being provided for information/ educational purposes only.) ?? COMMENT SEE COMMENT MAIRA Fisher LEGACY LABS Comment: EXPLANATORY NOTE: ? The Pap is a screening test for cervical cancer. It is ?? not a diagnostic test and is subject to false negative ?? and false positive results. It is most reliable when a ?? satisfactory sample, regularly obtained, is submitted ?? with relevant clinical findings and history, and when ?? the Pap result is evaluated along with historic and ?? current clinical information. ?? COMMENT: This Pap test has been evaluated with computer assisted technology. CONVERTED LEGACY LABS Store Facility Technician: SEE COMMENT CONVERTED LEGACY LABS Comment: MAA, CT(ASCP) CT screening location: [address] ??[address] HPV nRNA E6/E7 Not Detected Not Detected CONVERTED LEGACY LABS Comment: Methodology: Loading Unit Operator Seating-Mediated Amplification This assay detects E6/E7 viral messenger RNA (mRNA) from 14 high-risk HPV types (16,18,31,33,35,39,45,51,52,56,58,59,66,68). ? Cervical sources are required for HPV testing. If a vaginal source from a patient who has had a total hysterectomy with removal of cervix was ?? submitted, please contact the testing laboratory for alternative testing options. ?? For additional information, please refer to http://AllTrails.[employer]/faq/CHC752c1 (This link if provided for information/ educational purposes only.) Interpretation/Re sult: Negative for intraepithelial lesion or malignancy. CONVERTED LEGACY LABS LMP: NONE GIVEN CONVERTED LEGACY LABS Neisseria gonorrhoeae RNA, TMA, Urogenital NOT DETECTED NOT DETECTED CONVERTED LEGACY LABS Prev. BX: NONE GIVEN CONVERTED LEGACY LABS Prev. PAP: NONE GIVEN CONVERTE D LEGACY LABS SOURCE: None given CONVERTED LEGACY LABS Statement Of Adequacy: SEE COMMENT CONVERTED LEGACY LABS Comment: Satisfactory for evaluation. Endocervical/transformation zone component present. Trichomonas vaginalis, QL, TMA, PAP Vial NOT DETECTED NOT DETECTED CONVERTED LEGACY LABS Comment: The analytical performance characteristics of this assay have been determined by [email or web address]. The modifications have not been cleared or approved by the FDA. This assay has been validated pursuant to the CLIA regulations and is used for clinical purposes. ?? For additional information, please refer to http://AllTrails.[employer]/ faq/Trichomonastma (This link is being provided for information/ educational purposes only.) ?? 12/17/2021 10:4 6 AM EDT Dalila Yang MD LAB PATHOLOGY ORDERABLES F inal Result CONVERTED LEGACY LABS * Pap Smear (12/17/2021 12:00 AM EDT) Swab Historical Provider LAB CYTOLOGY ORDERABLES F inal Result CTC HISTORICAL LABS * Hm Colonoscopy (09/18/2020) Colonoscopy tubular adenoma with Dr. Reyes Kimmy Provider HEALTH MAINTENANCE Final Result from Last 3 Months or Most Recently Relevant to Health Maintenance Insurance [facility] < 65 Care Teams Piano Tuner Relationship Specialty Start Date End Date Chadiwck Rojo MD [address] [place] [id number] Hematology and Oncology 05/01/24
--- OUTSIDE RECORDS SUMMARY | 2024-07-10 15:20 | XMS_ITS | Encounter Summary ---
Author Organization [employer] Address [address] [facility] [address] [place] [address] Care Team Providers Care Remnant Sorter Name Role Phone Dalila Yang MD Primary Care Provider [phone] Dalila Yang MD Primary Care Provider [phone] Chadwick Rojo MD Unavailable [phone] Reason for Visit * Reason Comments Med Refill Encounter Details Date Type Department Care Team (Late st Contact Info) Description 08/19/2022 Refill [facility] [address] [place] [address] Dalila Yang MD [address] [place] [address] Social History Tobacco Use Types Packs/Day Years [...] documented as of this encounter Care Teams Remnant Sorter Relationship Specialty Start Date End Date Dalila Yang MD [address] [place] [address] PCP - General Family Medicine 03/06/18 07/10/23 Dalila Yang MD [address] [place] [address] PCP - General Family Medicine 02/14/24 02/28/24 Chadwick Rojo MD [address] [place] [address] Hematology and Oncology 05/01/24 documented as of this encounter
--- OUTSIDE RECORDS SUMMARY | 2024-07-10 15:20 | XMS_ITS | Patient Health Record ---
Author Organization [facility] Address [address] [place] [address] Care Team Providers Care Instructional Developer Name Role Phone Pippa Stephenson Primary Care Provider Prabha Roe Unavailable [phone] Allergies Allergen (clinical drug ingredient) Drug/Non Drug Allergy documented on EMR Reaction Allergy Type Onset Date Status aspirin Aspirin Unknown Drug Allergy Active Reason For Referral No Information Medications Medication SIG (Take, Route, Fr equency, Duration) Notes Start Date End Date Status Omeprazole 20 MG Oral for 90 Days Active Anastrozole 1 MG 1 tablet Orally Once a day Active Multivitamin Active Zometa 1x per year Active Lisinopril 10 MG Oral for 90 Days Active Omeprazole 20 MG 1 capsule 30 minutes before morning meal Orally Once a day Active Lisinopril 10 MG 1 tablet Orally Once a day Active Multivitamin 03/29/2023 Active Anastrozole 1 MG 1 MG ORALLY DAILY Or al for 90 Days Active Zometa 03/29/2023 Active Social [...] Problem Acquired hammer toe of right foot (220220735976376 5) Other hammer toe(s) (acquired), right foot (M20.41) Active confirmed Problem 040140857 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) Active confirmed Problem Ulcer of toe of right foot (disorder) (282813719730609 01) Skin ulcer of toe of right foot, limited to breakdown of skin (L97.511) Active confirmed Nonapplicable Problem 902583868 Arthritis of joint of toe (M19.079) Active confirmed Problem Localized, primary osteoarthritis of the ankle and/or foot (423444968) Arthritis of joint of lesser toe, right (M19.071) Active confirmed Plan Of Treatment Pending Test Test Name Order Date 99830-Qznnunzf Plate 04/03/2023 74412- Debride <25 sq cm 04/27/2023 Insurance Providers Payer Name Payer Address Payer Phone Subscriber Number Group Number Insured Name Patient Relationship to Insured Coverage Start Date Coverage End Date [facility] [employer] Claims [address] [place] [id number] Payton Barr Self - patient is the insured Medical (General) History Medical History History ICD Code Arthritis Cancer covid-19 Depression Surgical History Surgery Date(Month/Year) knee replacement 04/25/2017 breast cancer 2011 & 08/02/22 rotator cuff 2014
--- OUTSIDE RECORDS SUMMARY | 2024-07-10 15:20 | XMS_ITS | Encounter Summary ---
Author Organization [employer] Address [address] [facility] [address] [place] [address] Care Team Providers Care Mill Tender Warm Up Name Role Phone Dalila Yang MD Primary Care Provider [phone] Dalila Yang MD Primary Care Provider [phone]- [phone] Chadwick Rojo MD Unavailable [phone] Encounter Details Date Type Department Care Team (Late st Contact Info) Description 08/05/2022 Abstract [facility] MEDICINE [address] [place], [place] [phone] Dalila Yang MD [address] [place], [place] [phone] Social History Tobacco Use Types Packs/Day Years [...] as of this encounter Plan of Treatment Pending Results Name Type Priority Associated Diagnoses Date /Time Mammography Imaging Routine 07/14/2022 documented as of this encounter Procedures Procedure Name Priority Date/Time Associated Diagnosis Comments MAMMOGRAPHY Routine 07/14/2022 documented in this encounter Results * Mammography (07/14/2022) Mammogram B1 rads4 Anatomical Region Laterality Modality Other us Historical Provider HEALTH MAINTENANCE Final Result documented in this encounter Visit Diagnoses Not on filedocumented in this encounter Additional Health Concerns Assessment Noted Time PHQ-9 Depression Total Score: 4 05/05/19 23 11:06 AM EST documented as of this encounter Care Teams Mill Tender Warm Up Relationship Specialty Start Date End Date Dalila Yang MD [address] [place] [address] PCP - General Family Medicine 03/06/18 07/10/23 Dalila Yang MD [address] [place] [address] PCP - General Family Medicine 02/14/24 02/28/24 Chadwick Rojo MD [address] [place] [address] Hematology and Oncology 05/01/24 documented as of this encounter
--- OUTSIDE RECORDS SUMMARY | 2024-07-10 15:20 | XMS_ITS ---
Author Organization [facility] Address [address] [place] [address] Care Team Providers Care Business And Marketing Teacher Name Role Phone Pippa Stephenson Primary Care Provider Ahmet Roemie Unavailable [phone] Elza Mendoza Unavailable [phone] Allergies Allergen (clinical drug ingredient) Drug/Non Drug Allergy documented on EMR Reaction Allergy Type Onset Date Status aspirin Aspirin Unknown Drug Allergy Active REASON FOR VISIT Seen Sooner Medications Medication SIG (Take, Route, Fr equency, Duration) Notes Start Date End Date Status Omeprazole 20 MG Oral for 90 Days Active Lisinopril 10 MG Oral for 90 Days Active Multivitamin 03/29/2023 Active Anastrozole 1 MG 1 MG ORALLY DAILY Oral for 90 Days Active Zometa 03/29/2023 Active [...] 06/02/2023 Encounters Encounter Location Date Provider Diagnosis [facility] [address] [place] [address] 06/02/2023 Elza Mendoza Plan Of Treatment No Information Progress Notes * Mode BARR:1960 ([age] yo F)Acc No.[id number]:06/02/2023 Progress Notes Patient:?Payton BARR Provider:?Elza Mendoza DPM :1960???Age:63 Y???Sex:Female D ate:06/02/2023 Address:[address] [place], [place] [id number] Pcp:Pippa Stephenson Subjective: * Chief Complaints: * ???1. Seen Sooner. * ROS:?General/Constitutional:?Nausea?denies.?Vomiting?denies.?Hunger Thirst?denies.?Loss appetite?denies.?Chills?denies.?Fatigue?denies.?Fever?denies.?Night Sweats?admits.?Unexplained weight loss?denies.?Unexplained weight gain?denies.?HEENTM:?Dentures?admits.?Dizziness?denies.?Glasses/contacts?denies.?Retinopathy?de nies.?Blurred/double vision?denies.?TMJ?denies.?Discharge/drainage?denies.?Implants?denies.?Sore throat?denies.?Dental implants?denies.?Hard of hearing ?denies.?Difficulty chewing/swallowing/speaking?denies.?Nose bleeds?denies.?Sore mouth?denies.?Respiratory:?On Oxygen?denies.?Pneumonia/pleurisy?denies.?Bronchitis?denies.?Emphysema?denies.?C oughing?denies.?Cough blood?denies.?Shortness of breath?denies.?Wheezing?denies.?Cardiovascular:?Pacemaker?denies.?MVP?denies.?WPW?denies.?CHF?denies.?Heart attack?denies.?Septal defect?denies.?Rapid beat?denies.?Chest pain ?denies.?Atrial Fib.?denies.?Murmur/Palpitations?denies.?Gastrointestinal:?Hemorrhoids?denies.?Stomach/Abdominal pain?denies.?Dark blood stool?denies.?Irritable bowel ?denies.?Constipation?denies.?Diarrhea?denies.?Hematology:?Swelling?denies.?Clots?denies.?Varicose Veins?denies.?Bruising?admits.?Bleeding problem?denies.?Genitourinary:?Blood urine?denies.?Frequent/Painfu/urination/bladder control?denies.?Kidney stones?denies.?Infection (UTI)?denies.?Nephropathy?denies.?sex trans dis (STD)?denies.?Prostate?denies.?Musculoskeletal:?Hammertoes?denies.?Bunions?denies.?Back Pain?denies.?Muscle Cramps/ Resting?denies.?Muscle cramps / walking?denies.?Generalized aches and pains?denies.?Weakness?denies.?Integ.:?Rodriguez?denies.?Scars?denies.?Corns/calluses?denies.?Ingrown nails?admits.?Painful nails?denies.?Open Sores?denies.?Rashes?denies.?Neurologic:?Difficulty sleeping?denies.?Brain disorder?denies.?Numbness?denies.?Balance trouble?denies.?Confusion?denies.?Fainting/blackouts?denies.?Tingling?denies.?Tr emors?denies.? * Medical History:?Arthritis, Cancer, Covid-19, Depression. * Surgical History:?knee repla cement 04/25/2017, breast cancer 2011 & 08/02/22, rotator cuff 2013. * Family History:?Mother: aliv e, arthritis, cancer.?Father: , diabetes, kidney/liver disease.?Siblings: high blood pressure, arthritis, cancer.? * Social History:?Tobacco Use:?Tobacco Use/Smoking?Are you a:?former smoker ?Additional Findings: Tobacco Non-User?Current non-smoker ?Tobacco use other than smoking?Are you an other tobacco user??No ???Drugs/Alcohol:?Drugs?Have you used drugs other than those for medical reasons in the past 12 months??No ?Alcohol Screen?Did you have a drink containing alcohol in the past year??No ?Points?0 ?Interpretation?Negative ???Miscellaneous:?Caffeine: yes. ?Children: yes, 2. ?Marital status: . * Medications:?Taking Omeprazo le 20 MG Capsule Delayed Release Oral , Taking Lisinopril 10 MG Tablet Oral , Taking Anastrozole 1 MG Tablet 1 MG ORALLY DAILY Oral , Taking Multivitamin , Taking Zometa * Allergies:?Aspirin. Objective: * Vitals:?Ht: 5 ft 4 in, Wt:19 7, BMI:33.81, Shoe size: 8.5, Ht-cm: 162.56 cm, Wt- k.36 kg. Assessment: Plan: * Treatment: * Images: * The named appointment provid er may or may not be the originator of this progress note, and it is not deemed complete until electronically signed by the appointment provider. Sign off status: Pending * Provider:?Elza Mendoza DPM Date:? Generated for Kevin gonzalez/Alma/Thi on:?07/10/2024 03:19 PM EDT
--- OUTSIDE RECORDS SUMMARY | 2024-07-10 15:20 | XMS_ITS | Encounter Summary ---
Author Organization [employer] Address [address] [facility] 7t [place] [address] Care Team Providers Care Scalp Treatment Operator Name Role Phone Dalila Yang MD Primary Care Provider [phone] Dalila Yang MD Primary Care Provider [phone] Chadwick Rojo MD Unavailable [phone] Encounter Details Date Type Department Care Team (Late st Contact Info) Description 04/05/2022 Abstract [facility] MEDICINE [address] [place] [address] Dalila Yang MD [address] [place], [place] [phone] Social History Tobacco Use Types Packs/Day Years Used Date Smoking Tobacco: Never Assessed Comments Unknown Sex and Gender Information Value Date Recorded Sex Assigned at Female 01/03/2022 10:19 AM EDT Legal Sex Female 10:19 AM EDT Gender Identity Female 01/03/2022 10:19 AM EDT Sexual Orientation Straight 01/03/2022 10 :19 AM EDT documented as of this encounter Plan of Treatment Not on file documented as of this encounter Procedures Procedure Name Priority Date/Time Associated Diagnosis Comments PAP SMEAR Routine 12/17/2021 12:00 AM EDT MAMMOGRAPHY Routine 07/02/2021 COLONOSCOPY Routine 09/18/2020 MAMMOGRAPHY Routine 06/24/2020 documented in this encounter Results * Pap Smear (12/17/2021 12:00 AM EDT) Swab Historical Provider LAB CYTOLOGY ORDERABLES F inal Result [facility]OR[facility] * Mammography (07/02/2021) Mammogram BIRADS 1 Anatomical Region Laterality Modality Other Historical Provider HEALTH MAINTENANCE Final Result * Colonoscopy (09/18/2020) Colonoscopy tubular adenoma with Dr. Reyes Historical Provider HEALTH MAINTENANCE Final Result * Hm Mammography (06/24/2020) Mammogram BIRADS 2 Anatomical Region Laterality Modality Other [facility] Provider HEALTH MAINTENANCE Final Result documented in this encounter Visit Diagnoses Not on filedocumented in this encounter Care Teams Scalp Treatment Operator Relationship Specialty Start Date End Date Dalila Yang MD [address] [place] [address] PCP - General Family Medicine 03/06/18 07/10/23 Dalila Yang MD [address] [place] [address] PCP - General Family Medicine 02/14/24 02/28/24 Chadwick Rojo MD [address] [place] [address] Hematology and Oncology 05/01/24 documented as of this encounter
--- OUTSIDE RECORDS SUMMARY | 2024-07-10 15:20 | XMS_ITS ---
Author Organization [facility] Address [address] [place] [address] Care Team Providers Care Dyed Raw Stock Blower Feeder Name Role Phone Pippa Stephenson Primary Care Provider Unavailabl e Black, Prabha Unavailable [phone] Allergies Allergen (clinical drug ingredient) Drug/Non Drug Allergy documented on EMR Reaction Allergy Type Onset Date Status aspirin Aspirin Unknown Drug Allergy Active REASON FOR VISIT Pcp- 02/03/23, Open sore - Toe Medications Medication SIG (Take, Route, Fr equency, Duration) Notes Start Date End Date Status Anastrozole 1 MG 1 tablet Orally Once a day Active Multivitamin Active Zometa 1x per year Active Omeprazole 20 MG 1 capsule 30 [...] Problem Status W/U Status Risk Notes Problem Ulcer of toe of right foot (disorder) ([id number]) Skin ulcer of toe of right foot, limited to breakdown of skin (L97.511) Active confirmed Nonapplicable Vital Signs Height 5 ft 4 in in 04/27/2023 Weight 198 lbs 04/27/2023 BMI 33.98 kg/m2 04/27/2023 Procedures Procedure Date Ordered Date Performed Result Body Sit e 43832- Debride <25 sq cm 04/27/2023 N/A Encounters Encounter Location Date Provider Diagnosis [facility] [address] [place] [address] 04/27/2023 Prabha Brown Skin ulcer of toe of right foot, limited to breakdown of skin L97.511 Assessments Encounter Date Diagnosis (ICD Code) Assessment Notes Treatment Notes Treatment Clinical Notes Section Notes 04/27/2023 Skin ulcer of toe of right foot, limited to breakdown of skin (ICD-10 - L97.511) Nonapplicable Patient Educated with: WOUND CARE INSTRUCTIONS.p df (WOUND CARE INSTRUCTIONS.p df) 04/27/2023 Other Plan Of Treatment Treatment Notes Assessment Notes Skin ulcer of toe of right f oot, limited to breakdown of skin Patient Educated with: WOUND CARE INSTRUCTIONS.pdf (WOUND CARE INSTRUCTIONS.pdf) Pending Test Test Name Order Date 18440- Debride <25 sq cm 04/27/2023 Next Appt Details Follow Up: 9w, Reason: Procedure Notes * Category Sub-Category Detail Notes Debride skin< 25 sq cm Open wound Physician of record performed open wound selective debridement of first 25 sq cm or less, of devitilized necrotic/nonviable soft tissue, fibrin, and exudate extending from the epidermis through the dermis, utilizing sharp dissection with sterile 15 blade, and/or tissue nippers. Sterile antibiotic dressing applied, ANESTHESIA- was accomplished TOPICALLY with Lidocaine Hydrochloride Jelly 2 percent. Hemostasis was achieved through direct pressure. Post debridement measurements: 7 mm x 2 mm x 2mm. Character of the wound post debridement is stable (56821) Progress Notes * Luis BARROB:1960 ([age] yo F)Acc No.[id number]:04/27/2023 Progress Notes Patient:?Payton Barr Provider:?Prabha Brown DPM :1960???Age:63 Y???Sex:Female D ate:04/27/2023 Address:[address] [place], [place] [address] Pcp:Pippa Stephenson Subjective: * Chief Complaints: * ???Pcp- 02/03/23 Open sore - Toe * HPI: ???Skin problems:?Treatments:?soaks.? * Medical History:? * Surgical History:?knee repla cement 04/25/2017breast cancer 03/2011, 08/02/2022rotator cuff 2013 * Hospitalization/Major Diagno stic Procedure:?Denies Past Hospitalization * Family History:?Mother: arsalan sanon, diagnosed with Family history of arthritis, Other malignant neoplasm of unspecified site.?Father: , kidney/liver disease, diagnosed with Diabetic - NIDDM.?Siblings: diagnosed with Family history of arthritis, Unspecified essential hypertension, Other malignant neoplasm of unspecified site.? * Social History:?Tobacco Use:?Tobacco Use/Smoking?Are you a:?former smoker ?Additional Findings: Tobacco Non-User?Current non-smoker ?Tobacco use other than smoking?Are you an other tobacco user??No ???Drugs/Alcohol:?Drugs?Have you used drugs other than those for medical reasons in the past 12 months??No ?Alcohol Screen?Did you have a drink containing alcohol in the past year??No ?Points?0 ?Interpretation?Negative ???Miscellaneous:?Caffeine: yes, Coffee and Soda Occassionally. ?Children: yes, 2. ?no Exercise. ?Marital status: . ?Occupation: Retired- trailer truck driver. * Medications:?TakingZometa , Notes: 1x per yearMultivitamin Anastrozole 1 MG Tablet 1 tablet Orally Once a dayLisinopril 10 MG Tablet 1 tablet Orally Once a dayOmeprazole 20 MG Capsule Delayed Release 1 capsule 30 minutes before morning meal Orally Once a dayMedication List reviewed and reconciled with the patientTaking Cuate , Notes: 1x per yearTaking Multivitamin Taking Anastrozole 1 MG Tablet 1 tablet Orally Once a dayTaking Lisinopril 10 MG Tablet 1 tablet Orally Once a dayTaking Omeprazole 20 MG Capsule Delayed Release 1 capsule 30 minutes before morning meal Orally Once a dayMedication List reviewed and reconciled with the patient * Allergies:?Aspirinyes[Allerg ies Verified] Objective: * Vitals:?Ht: 5 ft 4 in, Wt:19 8, BMI:33.98, Shoe size:8-8.5. * Examination: ???Dermatologic: ?ULCER:? LOCATION, Lateral,T5, SIZE, 12mm X 3mm X 2mm, BASE, granular, RIM, hyperkeratotic, UNDERMINING, absent, TRACKING, Full thickness breakdown of skin, DRAINAGE, serosanguineous, mild, NECROTIC TISSUE, loosely-adherent, yellow slough, MALODOR, absent, CALOR, absent, ERYTHEMA, absent, PAIN ON PALPATION, present.? Assessment: * Assessment: 1.?Skin ulcer of toe of righ t foot, limited to breakdown of skin - L97.511, Response to treatment, Nonapplicable? Plan: * Treatment: * Procedures:?Debride skin< 25 sq cm:?Open wound?Physician of record performed open wound selective debridement of first 25 sq cm or less, of devitilized necrotic/nonviable soft tissue, fibrin, and exudate extending from the epidermis through the dermis, utilizing sharp dissection with sterile 15 blade, and/or tissue nippers. Sterile antibiotic dressing applied, ANESTHESIA- was accomplished TOPICALLY with Lidocaine Hydrochloride Jelly 2 percent. Hemostasis was achieved through direct pressure. Post debridement measurements: 7 mm x 2 mm x 2mm. Character of the wound post debridement is stable (39456).? * Procedure Codes:?92071 ACTIV E WOUND CARE/20 CM OR <, Modifiers: T5 * Preventive Medicine:? ??Counseling:?Ulcer:?A detailed plan of care was reviewed with the patient. We emphasized the fact that the patient takes on an active participating role in the treatment process and emphasized to them that they are an included, valued, and important member of the wound healing team in order to reach an expedient successful outcome. The patient agreed to follow their medically recommended diet while increasing their protein intake if safely able to do so, maintain proper bodily hydaration, abide by weight-bearing restrictions at all times, quit all current smoking habits if any, and diligently follow any/all dressing change instructions. It was clearly made known to the patient that if they fail to do their part, they will likely extend their course of treatment as well as possibly increase their risk of adverse events including amputation. The patient was instructed on importance of proper wound care consisting of pressure reduction, and proper maintainance of a moist wound environment. The patient is to cleanse the wound with warm soapy water/peroxide/saline, or betadine BID based on product availability. The patient is to apply ( Neosporin, Polysporin, or Triple, ) Antibiotic to the wound and cover with a DSD as directed. The patient was instructed to change dressings according to orders, or PRN saturation, leaks. The patient was instructed to monitor and report any signs or symptoms of infection or any untoward reactions. Precautions Taken: Offloading/Pressure reduction via rest/ limited activity to essential to daily life only, cane/ crutches/ walker/ knee scooter/ wheel chair, shoe modification, accommodative padding, sharp debridement, and take/apply medication as directed, Debridement frequency as indicated, Every 9-12 weeks until healed.? * Follow Up:?9w * Images: * Sign off status: Completed true * Provider:Lenny Brown DPM Date:?2023 Generated for Kevin gonzalez/Alma/Thi on:?07/10/2024 03:20 PM EDT History and Physical Notes * HPI (History of Present Illness) Category Sub-Category Detail Notes Category Not es Skin problems Treatments: soaks Examination Category Sub-Category Detail Notes Category Not es Dermatologic ULCER: LOCATION, Latera l,T5, SIZE, 12mm X 3mm X 2mm, BASE, granular, RIM, hyperkeratotic, UNDERMINING, absent, TRACKING, Full thickness breakdown of skin, DRAINAGE, serosanguineous, mild, NECROTIC TISSUE, loosely-adherent, yellow slough, MALODOR, absent, CALOR, absent, ERYTHEMA, absent, PAIN ON PALPATION, present
--- OUTSIDE RECORDS SUMMARY | 2024-07-10 15:20 | XMS_ITS | Encounter Summary ---
Author Organization [employer] Address [address] [facility] 7t [place] [address] Care Team Providers Care Sewing Machines Salesperson Name Role Phone Dalila Yang MD Primary Care Provider [phone] Chadwick Rojo MD Unavailable [phone] Reason for Visit * Reason Comments Med Refill Encounter Details Date Type Department Care Team ([facility] st Contact Info) Description 11/22/2023 Refill [facility] MEDICINE [address] [place], [place] [phone] Dalila Yang MD [address] [place], [place] [phone] Primary insomnia Social History Tobacco Use Types [...] documented as of this encounter Care Teams Sewing Machines Salesperson Relationship Specialty Start Date End Date Dalila Yang MD [address] [place] [address] PCP - General Family Medicine 02/14/24 02/28/24 Chadwick Rojo MD [address] [place] [address] Hematology and Oncology 05/01/24 documented as of this encounter
== END 2024-07-10 14:05 | disposition home or self-care (01) ==
LOC: HO.MAMMO 14:04
PROVIDERS: PCP Student in an Organized Health Care Education/Training Program; Visit Provider Surgery
DX: D05.12 Intraductal carcinoma in situ of left breast (principal)
CPT/HCPCS: 77062; 77066

== ENCOUNTER → 2024-07-10 14:30 | Outpatient (BNV) | payer OTHER, SELFPAY | PROVIDERS: PCP Student in an Organized Health Care Education/Training Program; Visit Provider Internal Medicine | DX: C50.911 Malignant neoplasm of unspecified site of right female breast (principal); C50.912 Malignant neoplasm of unspecified site of left female breast | CPT/HCPCS: 77066; G0279 ==

== ENCOUNTER 2024-08-29 12:33 | Outpatient (AMB) | payer OTHER, SELFPAY ==
--- NOTE | 2024-08-29 12:37 | A.OFFVIS_ITS ---
Vital Signs 08/29/24 12:38 Height 5 ft 5 in Weight 199 lb BMI 33.1 BP 137/73 Blood Pressure Location Rt brachial Position Sitting Pulse 70 Intake Visit Reasons: 6m br exam~ MRI results Intake Note: Patient here for 6m br exam. Patient c/o: no conceens. Denies breast lumps, nipple discharge, tenderness. Bilateral breast MRI: 01-31-2024 Mammogram: 07-10-2024 Clinical Account Specialist Required: No Accompanied by: Self / Same As Patient Allergies aspirin (Aspirin) Allergy (Mild, Verified 08/29/24 12:49) HEARTBURN Medication List - Last Reconciled 08/29/24 by Alejandro Valle MD anastrozole 1 mg PO DAILY atorvastatin 40 mg PO DAILY cholecalciferol (vitamin D3) 25 mcg PO DAILY ibuprofen 600 mg PO Q6H PRN lisinopril 10 mg PO DAILY lisinopril-hydrochlorothiazide 10-12.5 mg 1 tab PO DAILY omeprazole 20 mg PO DAILY HPI HPI 6m br exam~ MRI results: Details: She is here for a follow-up for history of DCIS. She would undergone lumpectomy last Jul, 2022 for DCIS on the right breast. She had radiation to complete treatment. She is currently on anti hormonal treatment as well with anastrozole. She denies any complaints. She feels well overall. She had a surveillance mammogram last Jul, 2024 and this was unremarkable. She denies any palpable mass. [facility] Medical History Ductal carcinoma in situ (DCIS) of left breast Family history of breast cancer Breast calcification, left Tubular adenoma GERD (gastroesophageal reflux disease) History of ductal carcinoma in situ (DCIS) of breast Osteoarthritis Hypertension Surgical History History of lumpectomy of left breast (~08/02/22) Hx of rotator cuff surgery Hx of colonoscopy History of lumpectomy of right breast History of left knee replacement Family History Mother Breast cancer Sister Breast cancer Social History Household Members: None Housing: House Are you a primary rental boats caretaker to a significant other at home: No Do you presently have visiting nurse or other home services: Yes ([facility]) Alcohol intake: never Patient Tobacco Use Status: Former Tobacco user Second Hand Smoke Exposure: No service: No Current occupational status: unemployed Female Reproductive History Menstrual Age of Menarche: 11 Review of Systems Const Denies chills and Denies fever(s) Card Denies chest pain, Denies dyspnea and Denies dyspnea on exertion Resp Denies cough, Denies dyspnea and Denies dyspnea on exertion GI Denies hematochezia and Denies change in bowel habits Denies hematuria Musc Denies back pain and Denies limited range of motion Neuro Denies focal weakness and Denies convulsions Psych Denies depression and Denies mood swings Physical Exam Vital Signs: Last Vital Signs Pulse 70 08/29/24 12:38 BP 137/73 08/29/24 12:38 BMI result Body Mass Index 33.1 Const General: comfortable and no acute distress Chest Other: No palpable breast masses, axillary lymphadenopathy Resp Effort & Inspection: normal respiratory effort Cardio Rate: regular rate GI Palpation (GI): Soft to palpation and nontender Assessment & Plan Assessment & Plan (1) History of ductal carcinoma in situ (DCIS) of breast: Comment: She continues to do well with regard to her personal history of DCIS of the right breast and with regard to her family history. Code(s): Z86.000 - Personal history of in-situ neoplasm of breast Category: Medical Plan: I reviewed her mammogram from last month and this was unremarkable. Current exam does not suggest any palpable breast mass or axillary lymphadenopathy She continues with her hormonal treatment with anastrozole I will see her again in the office in about 1 year She was reminded to have her MRI this January. Coding Level of Care Code Est Pt Level 3 (42056) Complex EM visit Add On G2211 Diagnoses History of ductal carcinoma in situ (DCIS) of breast Z86.000
[2024-08-29 12:38] VITALS: BP 137/73; PULSE 70; BMI 33.1
--- OUTSIDE RECORDS SUMMARY | 2024-08-29 14:52 | XMS_ITS | Encounter Summary ---
Author Organization [employer] Address [address] [place] [address] Care Team Providers Care Napper Runner Name Role Phone Dalila Yang MD Primary Care Provider [phone] Dalila Yang MD Primary Care Provider [phone] Chadwick Rojo MD Unavailable [phone] Encounter Details Date Type Department Care Team (Late st Contact Info) Description 12/28/2022 Abstract [facility] [address] [place] [address] Dalila Yang MD [address] [place], [place] [id number] Social History Tobacco Use Types Packs/Day Years [...] documented as of this encounter Care Teams Napper Runner Relationship Specialty Start Date End Date Dalila Yang MD [address] [place] [id number] PCP - General Family Medicine 03/06/18 07/10/23 Dalila Yang MD [address] [place] [id number] PCP - General Family Medicine 02/14/24 02/28/24 Chadwick Rojo MD [address] [place] [id number] Hematology and Oncology 05/01/24 documented as of this encounter
== END 2024-08-29 13:14 | disposition home or self-care (01) ==
LOC: HO.HGS 12:33
PROVIDERS: PCP Family Medicine; Visit Provider Surgery
DX: Z86.000 Personal history of in-situ neoplasm of breast (principal)
CPT/HCPCS: 99213; G2211

== ENCOUNTER → 2024-08-29 12:33 | Outpatient (BNVA) | payer OTHER, SELFPAY | PROVIDERS: PCP Family Medicine; Visit Provider Surgery | DX: Z71.2 Person consulting for explanation of examination or test findings (principal); Z86.000 Personal history of in-situ neoplasm of breast | CPT/HCPCS: 99212 ==

== ENCOUNTER 2024-09-18 17:32 | Emergency (ER) | payer OTHER, SELFPAY ==
--- NOTE | ~2024-09-18 | CT_ITS ---
CLINICAL HISTORY: right sided neck pain CT cervical spine without contrast. COMPARISON: None provided. FINDINGS: Straightening with reversal of normal cervical lordosis. Vertebral body heights are maintained. Skull base and intracranial structures appear normal. The visualized paravertebral soft tissues appear unremarkable. C2-C3: No significant neuroforaminal narrowing or spinal canal stenosis. C3-C4: Facet joint arthrosis. Mild right neural foraminal narrowing. C4-C5: Anterior marginal osteophytes. Facet joint arthrosis. Uncovertebral joint hypertrophy. Severe left neural foraminal narrowing. C5-C6: Anterior marginal osteophytes. Loss of disc space height. Posterior disc osteophyte complex. Uncovertebral joint hypertrophy. Moderate bilateral neural foraminal narrowing. C6-C7: Anterior marginal osteophytes. Loss of disc space height. Posterior disc osteophyte complex. Uncovertebral joint hypertrophy. Mild bilateral neural foraminal narrowing. IMPRESSION: 1. Straightening with reversal of normal cervical lordosis. 2. Moderate mid to lower cervical spondylosis. This document has been electronically signed by: Joselito Carter MD on 09/18/2024 19:38:15
--- NOTE | ~2024-09-18 | CT_ITS ---
CLINICAL HISTORY: right sided headache CT head without contrast. COMPARISON: None provided. FINDINGS: The visualized paranasal sinuses are clear. The mastoid air cells are clear. No calvarial fracture. Atherosclerotic intracranial vasculature. No evidence for mass or mass effect. No intracranial hemorrhage or abnormal extra-axial fluid collection. No evidence of hydrocephalus. The basilar cisterns are patent. Posterior fossa appears unremarkable. IMPRESSION: 1. No acute intracranial findings. This document has been electronically signed by: Joselito Carter MD on 09/18/2024 19:52:19
[2024-09-18 17:47] VITALS: BP 142/78; PULSE 82; O2SAT 98
[2024-09-18 18:14] VITALS: BP 170/94; PULSE 99; RESP 16; TEMP 36.7; O2SAT 99; BMI 34.3
--- NOTE | 2024-09-18 18:19 | ED_ITS ---
HPI - General Adult General Chief complaint: Neck Pain/Injury Stated complaint: Neck pain post swimming x48 hours ago Time Seen by Provider: 09/19/24 00:38 Source: patient Mode of arrival: EMS Limitations: no limitations History of Present Illness ED Provider: Joaquín HANSON HPI narrative: The patient is a 64-year-old female presenting to the ED for evaluation of 2 days of right-sided neck pain radiating into the right trapezius. Patient reports pain began atraumatically, reports she had been swimming recently but denies any injury or trauma. The patient denies associated focal neurological deficit, headache, fever/chills, or similar previous symptoms. The patient reports she has attempted lidocaine patches and ibuprofen without relief. Related Data Home Medications ?Medication ?Instructions ?Recorded ?Confirmed cholecalciferol (vitamin D3) 25 25 mcg PO DAILY 08/29/24 mcg (1,000 unit) capsule lisinopril 10 mg tablet 10 mg PO DAILY 01/28/2008/05 omeprazole 20 mg capsule,delayed 20 mg PO DAILY 08/29/24 release atorvastatin 40 mg tablet 40 mg PO DAILY 08/29/2408/05 lisinopril 10 1 tab PO DAILY 08/29/2408/05 mg-hydrochlorothiazide 12.5 mg tablet Previous Rx's ?Medication ?Instructions ?Recorded ibuprofen 600 mg tablet 600 mg PO Q6H PRN pain #30 t abs 08/02/22 anastrozole 1 mg tablet 1 mg PO DAILY #90 tabs 04/30 acetaminophen 500 mg capsule 1,000 mg (2 x 500 mg) PO .q8 PRN 09/19/24 fever or pain #30 caps diazepam 5 mg tablet (Valium) 5 mg PO BID PRN muscle s pasm #14 09/19/24 tabs ibuprofen 600 mg tablet 600 mg PO Q8H PRN fever or p ain 09/19/24 #30 tabs Allergies Allergy/AdvReac Type Severity Reaction Status Date / Time aspirin (Aspirin) Allergy Mild HEARTBURN Verified 09/18/24 18:15 Review of Systems 2 Review of Systems: Yes all other systems are reviewed and are negative PMFSH Past Medical History Medical History Ductal carcinoma in situ (DCIS) of left breast Family history of breast cancer Breast calcification, left Tubular adenoma GERD (gastroesophageal reflux disease) History of ductal carcinoma in situ (DCIS) of breast Osteoarthritis Hypertension Surgical History History of lumpectomy of left breast (~08/02/22) Hx of rotator cuff surgery Hx of colonoscopy History of lumpectomy of right breast History of left knee replacement Family History Family History Mother Breast cancer Sister Breast cancer Social History Social History Household Members: None Housing: House Are you a primary body care manager to a significant other at home: No Do you presently have visiting nurse or other home services: Yes ([facility]) Alcohol intake: never Patient Tobacco Use Status: Former Tobacco user Second Hand Smoke Exposure: No Advance Directives: No Advance Directives Information Provided: No Do you have a plan to hurt others: No Plan service: No Current occupational status: unemployed Physical Exam ED Vital Signs: Vital Signs - 24 hr 09/18/24 18:14 09/18/24 19:45 09/18/24 22:57 Temperature 98.0 F 98.2 F 98.1 F Pulse Rate 99 75 74 Respiratory Rate 16 20 20 Blood Pressure 170/94 H 173/77 H 156/87 H Pulse Oximetry 99 98 98 Oxygen Delivery Method Room Air Room Air Room Air 09/19/24 00:00 Temperature 99.8 F Pulse Rate 88 Respiratory Rate 18 Blood Pressure 150/74 H Pulse Oximetry 96 Oxygen Delivery Method Room Air BMI result Body Mass Index 34.3 CONSTITUTIONAL: The patient appears in obvious discomfort, but otherwise non- toxic, well nourished and in no acute distress. Vital signs as documented. HEAD: Atraumatic, normocephalic. EYES: EOMs grossly intact, pupils equal, conjunctiva clear, no exudate. ENT: Nares patent, no discharge. Airway patent, no audible stridor, visible mucosa is pink and moist without noted lesions. NECK: trachea is midline, no obvious masses or gross abnormalities. Cervical midline spine is nontender, no crepitus or step-off. The patient's right paraspinal muscles are tender to palpation with tenderness of the right trapezius. No overlying erythema, induration, or fluctuance. There is no mastoid tenderness, no pain with manipulation of the tragus. No tenderness to light palpation of the occipital nerve distribution, no rash, specifically no vesicular rash appreciated. There is painful but not impaired range of motion. CHEST: Symmetric movement, normal appearance. LUNGS: Non-labored work of breathing. CARDIAC: No evidence of hypoperfusion. ABDOMEN: Nondistended, no obvious injury. : Deferred. EXTREMITIES: Moves all extremities spontaneously without reported pain. No obvious injury or deformity noted. NEURO: Alert and oriented x3, CN II-XII appear grossly intact. Cerebellar Functioning grossly intact. Speech clear and appropriate. SKIN: Warm, dry, color appropriate. No rashes or lesions noted. Course Course Course Narrative: 09/18/241818 MARGIE Sommers This is a Rapid Medical Examination (RME) performed by Mesha Salter PA-C in triage. Full HPI, ROS, assessment and treatment plan per primary provider in the Main ED. Hx: 64 yo F BIBA for eval of atraumatic right-sided neck pain x2 days, believes this occurred after swimming at home. pain becoming worse over the last few days. Denies any specific injury, trauma, falls. Pain radiates from right shoulder up into right side of her neck and up into her right head. trialing ibuprofen, using lidocaine patch without improvement. No numbness, tingling, weakness of the right upper extremity. no vision changes, dizziness, difficulty ambulating, N/V. PE/vitals: tender to palpation of right trapezius muscle/ right cervical paraspinal muscles. No midline spinous tenderness or step-off. Decreased ROM to C-spine w/ L and R álvarez motions due to pain. no neuro deficits. intermittently screaming out/crying in pain. Plan: screening labs, imaging reptile keeper aware at 1830 -- awaiting bed. Medications Administered Discontinued Medications Generic Name Dose Route Start Last Admin Trade Name Kevynq PRN Reason Stop Dose Admin Acetaminophen 975 mg 09/19/24 02:00 09/19/24 02:24 Acetaminophen 325 Mg Tablet PO 09/19/24 02:01 975 mg ONCE ONE Administration Diazepam 2 mg 09/19/24 02:00 09/19/24 02:24 Diazepam 2 Mg Tablet PO 09/19/24 02:01 2 mg ONCE ONE Administration Ketorolac Tromethamine 30 mg 09/19/24 02:00 09/19/24 02:23 Ketorolac Tromethamine 30 Mg/Ml Vial IM 09/19/24 02:01 30 mg ONCE ONE Administration Medical Decision Making Medical Decision Making [facility] Narrative: 2:07 AM 09/19/2024 (Mesha HANSON): The patient is a 64-year-old female presenting to the ED for atraumatic onset of right paraspinal and trapezius pain which began 2 days ago without associated fever/chills, nausea, vomiting, or other acute systemic complaint. Patient was sent for laboratory evaluation and CT imaging during the triage process, CT shows no acute fracture or intracranial pathology, laboratory evaluation is unremarkable, no leukocytosis, significant anemia, MARIELY, or electrolyte abnormality. The patient is exam shows no evidence of zoster, mastoiditis, otitis externa, occipital neuralgia, or meningismus. The patient's exam is consistent with torticollis. The patient will be treated with Toradol, Valium, and Tylenol and we will reassess for improvement in symptoms. 3:18 AM 09/19/2024 (Mesha HANSON): Patient reports improvement in pain following ED interventions. Patient will be discharged with outpatient follow up. Admission/Observation Consideration of admission/observation: Escalation of care including admission/observation considered Lab Data [facility] Lab Attestation statement: I reviewed the patient's lab results. 09/18/24 19:40 09/18/24 19:41 Labs: Lab Results 09/18/24 09/18/24 Range/Units 19:40 19:41 WBC 9.5 (4.8-10.8) X10*3/uL RBC 4.08 L (4.20-5.50) X10*6/uL Hgb 11.7 L (12.0-16.0) g/dl Hct 34.2 L (37.0-47.0) % MCV 83.8 (80.0-98.0) fL MCH 28.7 (27.0-33.0) pg MCHC 34.2 (31.0-35.0) g/dl RDW 13.6 (11.0-16.0) % Plt Count 201 (160-400) X10*3/uL MPV 9.9 (9.4-12.3) fL Immature Gran % (Auto) 0.3 (0.0-0.4) % Neut % (Auto) 76.8 H (45-73) % Lymph % (Auto) 12.6 L (20-40) % Evans % (Auto) 9.6 (2-11) % Eos % (Auto) 0.3 (0-4) % Baso % (Auto) 0.4 (0-2) % Lymph # (Auto) 1.2 (1.2-4.9) X10*3/uL Evans # (Auto) 0.9 (0.1-1.2) X10*3/uL Eos # (Auto) 0.0 (0.0-0.4) X10*3/uL Baso # (Auto) 0.0 (0.0-0.2) X10*3/uL Abs Immat Gran (auto) 0.03 (0.00-0.03) X10*3/uL Absolute Neuts (auto) 7.3 (2.0-8.3) x10*3/uL Absolute Nucleated RBC 0.000 (0.0-0.012) X10*3/uL Nucleated RBC % (auto) 0.0 (0.0-0.2) /100WBC Sodium 139 (135-145) mmol/L Potassium 3.4 (3.3-5.1) mmol/L Chloride 105 (96-108) mmol/L Carbon Dioxide 26 (22-29) mmol/L Anion Gap 11 L (12-20) BUN 14 (9-16) mg/dL Creatinine 0.66 (0.5-1.4) mg/dL Estim Creat Clear Calc 91.5 Estimated GFR > 60 Random Glucose 106 (60-115) mg/dL Calcium 9.1 (8.4-10.2) mg/dL Magnesium 2.0 (1.6-2.6) mg/dL Total Bilirubin 0.4 (0.0-1.0) mg/dL AST 18 (5-31) U/L ALT 14 (0-31) U/L Alkaline Phosphatase 78 (39-117) U/L Total Protein 7.2 (6.5-8.0) g/dL Albumin 4.5 (3.5-5.0) g/dL Radiology Impression Discussion of test interpretation with radiology: I have reviewed the radiologist's reading. Radiologist Impression: Report Number: [id number]: Total DLP = 665.94 mGy-cm CLINICAL HISTORY: right sided headache CT head without contrast. COMPARISON: None provided. FINDINGS: The visualized paranasal sinuses are clear. The mastoid air cells are clear. No calvarial fracture. Atherosclerotic intracranial vasculature. No evidence for mass or mass effect. No intracranial hemorrhage or abnormal extra-axial fluid collection. No evidence of hydrocephalus. The basilar cisterns are patent. Posterior fossa appears unremarkable. IMPRESSION: 1. No acute intracranial findings. This document has been electronically signed by: Joselito Carter MD on 09/18/2024 19:52:19 Report Number: [id number]: Total DLP = 439.12 mGy-cm CLINICAL HISTORY: right sided neck pain CT cervical spine without contrast. COMPARISON: None provided. FINDINGS: Straightening with reversal of normal cervical lordosis. Vertebral body heights are maintained. Skull base and intracranial structures appear normal. The visualized paravertebral soft tissues appear unremarkable. C2-C3: No significant neuroforaminal narrowing or spinal canal stenosis. C3-C4: Facet joint arthrosis. Mild right neural foraminal narrowing. C4-C5: Anterior marginal osteophytes. Facet joint arthrosis. Uncovertebral joint hypertrophy. Severe left neural foraminal narrowing. C5-C6: Anterior marginal osteophytes. Loss of disc space height. Posterior disc osteophyte complex. Uncovertebral joint hypertrophy. Moderate bilateral neural foraminal narrowing. C6-C7: Anterior marginal osteophytes. Loss of disc space height. Posterior disc osteophyte complex. Uncovertebral joint hypertrophy. Mild bilateral neural foraminal narrowing. IMPRESSION: 1. Straightening with reversal of normal cervical lordosis. 2. Moderate mid to lower cervical spondylosis. This document has been electronically signed by: Joselito Carter MD on 09/18/2024 19:38:15 Discharge Plan Discharge Clinical Impression: Torticollis Patient Disposition: Home, Self-Care Instructions: Spasmodic Torticollis (ED), Muscle Spasm (ED), Neck Pain (ED) Additional Instructions: Thank you for choosing [facility]'s Emergency Department for your care today. Thankfully your laboratory evaluation and CT today showed no evidence of acute fracture, or other concerning process responsible for your neck pain. At this time there is no evidence of an acute process requiring admission to the hospital or continued ED observation, and it is safe to discharge you home. Your presentation is consistent with a severe neck muscle spasm, known as torticollis. We treated you with a muscle relaxer and anti-inflammatory medication. You should take alternating (staggered) doses of ibuprofen 600mg and Tylenol 1000mg every 4 hours as needed for any additional pain. Please rest the injured area, and apply ice for 20 minutes every hour. Please stay well hydrated and get plenty of rest. As a part of your care plan, you have also been prescribed a muscle relaxer. Please take this medication only for severe pain or spasm that is not relieved by ibuprofen and/or Tylenol. Muscle relaxer medications can carry high risk of unintentional addiction and abuse. Take this medication only as directed and only if absolutely necessary. This medicine can make you drowsy, you are not allowed to drive, operate heavy machinery, or be the sole care provider for children while taking this medication. You were treating herself with a lidocaine patch, if you find this provides you significant relief please continue using additional patches in addition to the prescribed medications. Please follow up with your primary care physician for re-evaluation, additional management of your symptoms, and continued preventative care. If you do not have a primary care physician, please call the [facility] at [phone] to establish a new primary care physician. While waiting to establish your new primary care physician, you can call our [facility] at [phone] for non-emergency needs. Please return to the emergency department if you develop a severe or sudden change in your symptoms, a fever over 100.4 that does not improve with Tylenol or Ibuprofen, recurrent vomiting, or any other new or worsening symptoms or concerns. Prescriptions: New ibuprofen 600 mg tablet 600 mg PO Q8H PRN (Reason: fever or pain) Qty: 30 0RF acetaminophen 500 mg capsule 1,000 mg PO .q8 PRN (Reason: fever or pain) Qty: 30 0RF diazepam [Valium] 5 mg tablet 5 mg PO BID PRN (Reason: muscle spasm) Qty: 14 0RF No Action anastrozole 1 mg Tablet 1 mg PO DAILY Qty: 90 4RF ibuprofen 600 mg tablet 600 mg PO Q6H PRN (Reason: pain) Qty: 30 0RF lisinopril 10 mg tablet 10 mg PO DAILY omeprazole 20 mg capsule,delayed release(DR/EC) 20 mg PO DAILY cholecalciferol (vitamin D3) 25 mcg (1,000 unit) capsule 25 mcg PO DAILY atorvastatin 40 mg tablet 40 mg PO DAILY lisinopril-hydrochlorothiazide 10-12.5 mg tablet 1 tab PO DAILY Print Language: Uzbek
[2024-09-18 19:45] VITALS: BP 173/77; PULSE 75; RESP 20; TEMP 36.8; O2SAT 98
[2024-09-18 19:45] LABS: MANUAL DIFF FLAG NO
[2024-09-18 19:49] LABS: Hematocrit 34.2 % (37.0-47.0); Hemoglobin 11.7 g/dl (12.0-16.0); Imm Gran Abs Auto 0.03 X10*3/uL (0.00-0.03); Imm Gran Pct Auto 0.3 % (0.0-0.4); Lymphocytes Absolute Auto 1.2 X10*3/uL (1.2-4.9); Mean Corpuscular HGB Conc 34.2 g/dl (31.0-35.0); Mean Corpuscular Hemoglobin 28.7 pg (27.0-33.0); Mean Corpuscular Volume 83.8 fL (80.0-98.0); NRBC Abs Auto 0.000 X10*3/uL (0.0-0.012); NRBC Pct Auto 0.0 /100WBC (0.0-0.2); Platelet Count 201 X10*3/uL (160-400); Red Blood Count 4.08 X10*6/uL (4.20-5.50); White Blood Count 9.5 X10*3/uL (4.8-10.8)
[2024-09-18 20:05] LABS: Alanine Aminotransferase 14 U/L (0-31); Albumin Level 4.5 g/dL (3.5-5.0); Alkaline Phosphatase 78 U/L (39-117); Anion Gap 11 (12-20); Aspartate Amino Transferase 18 U/L (5-31); Blood Urea Nitrogen 14 mg/dL (9-16); Calcium 9.1 mg/dL (8.4-10.2); Carbon Dioxide 26 mmol/L (22-29); Chloride 105 mmol/L (96-108); Creatinine Clr Calc Pharmacy 91.5; Estimated Glomerular Filt Rate > 60; Magnesium 2.0 mg/dL (1.6-2.6); Potassium 3.4 mmol/L (3.3-5.1); Sodium 139 mmol/L (135-145); Total Protein 7.2 g/dL (6.5-8.0)
[2024-09-18 22:57] VITALS: BP 156/87; PULSE 74; RESP 20; TEMP 36.7; O2SAT 98
--- NOTE | 2024-09-18 23:15 | PC.NURSE ---
this rn assumed care of pt, pt resting in stretcher, reports 10/10 right neck pain, ice pack in place. pt awaiting ed provider
[2024-09-19] VITALS: BP 150/74; PULSE 88; RESP 18; TEMP 37.7; O2SAT 96
[2024-09-19 03:29] VITALS: BP 119/61; PULSE 69; RESP 16; TEMP 36.4; O2SAT 95
== END 2024-09-19 03:30 | disposition home or self-care (01) ==
PROVIDERS: Physician Assistant Medical; Emergency Provider Emergency Medicine
DX: M43.6 Torticollis (principal); R51.9 Headache, unspecified; M54.2 Cervicalgia; Z79.899 Other long term (current) drug therapy
CPT/HCPCS: 36415; 70450; 72125; 80053; 83735; 85025; 96372; 99284; J1885

== ENCOUNTER → 2024-09-18 18:17 | Outpatient (BNV) | payer OTHER, SELFPAY | PROVIDERS: Visit Provider Radiology Diagnostic Radiology | DX: M47.812 Spondylosis without myelopathy or radiculopathy, cervical region (principal); R51.9 Headache, unspecified | CPT/HCPCS: 70450; 72125 ==

== ENCOUNTER 2024-11-07 14:11 | Outpatient (AMB) | payer OTHER, SELFPAY ==
--- OUTSIDE RECORDS SUMMARY | 2023-06-02 04:30 | XMS_ITS ---
Author Organization [facility] [address] Address [address] [place] [address] Care Team Providers Care Heel Emery Buffer Name Role Phone Pippa Stephenson Primary Care Provider Ahmet Roemie Unavailable [phone] Elza Mendoza Unavailable [phone] Allergies Allergen (clinical drug ingredient) Drug/Non Drug Allergy documented on EMR Reaction Allergy Type Onset Date Status aspirin Aspirin Unknown Drug Allergy Active REASON FOR VISIT Seen Sooner Medications Medication SIG (Take, Route, Fr equency, Duration) Notes Start Date End Date Status Omeprazole 20 MG Oral; Duration: 90 Days Active Lisinopril 10 MG Oral; Duration: 90 Days Active Multivitamin 03/29/2023 Active Anastrozole 1 MG 1 MG ORALLY DAILY Or al; Duration: 90 Days Active Zometa 03/29/2023 Active Social History Tobacco Use: Social History Observation Description Date Details (start date - stop date) Former Smoker NA - NA Tobacco Use/Smoking Question Answer Notes Are you a: former smoker Additional Findings: Tobacco Non-User Current no n-smoker Alcohol Screen Question Answer Notes Did you have a drink containing alcohol in the p ast year? No Points 0 Interpretation Negative Tobacco use other than smoking: Question Answer Notes Are you an other tobacco user? No Vital Signs Height 5 ft 4 in in 06/02/2023 Weight 197 lbs 06/02/2023 BMI 33.81 kg/m2 06/02/2023 Encounters Encounter Location Date Provider Diagnosis [facility] [address] [place] [address] 06/02/2023 Elza Mendoza Plan Of Treatment No Information Progress Notes * Luis BARROB:1960 ([age] yo F)Acc No.[id number]:06/02/2023 Progress Notes Patient: Payton RESTREPO Provider: Sylvester Mendoza DPM :1960 A ge:63 Y S ex:Female Date:06/02/2023 Address:[address] [place] [address] Pcp:Pippa Stephenson Subjective: * Chief Complaints: * 1 . Seen Sooner. * ROS: G eneral/Constitutional: Nausea d enies. V omiting d enies. H francisco Thirst d enies. L oss appetite d enies. C hills d enies. F atigue d enies.?Fever d enies. N ight Sweats a dmits. U nexplained weight loss d enies. U nexplained weight gain d enies. H EENTM: Dentures a dmits. D izziness d enies. G lasses/contacts d enies. R etinopathy d enies. B lurred/double vision d enies. T MJ?denies. D ischarge/drainage d enies. I mplants d enies. S ore throat d enies. D ental implants d enies. H giuseppe of hearing d enies. D ifficulty chewing/swallowing/speaking d enies. N ose bleeds d enies. S ore mouth d enies. ? R espiratory: On Oxygen d enies. P neumonia/pleurisy d enies.?Bronchitis d enies. E mphysema d enies. C oughing d enies. C ough blood?denies. S hortness of breath d enies. W heezing d enies. C ardiovascular: Pacemaker d enies. M LACE MACHINE OPERATOR d enies. W PW d enies. C HF d enies. H eart attack d enies. S eptal defect d enies. R apid beat d enies. C hest pain d enies. A trial Fib. d enies. M urmur/Palpitations d enies. G astrointestinal: Hemorrhoids d enies. S tomach/Abdominal pain d enies. D ark blood stool d enies. I rritable bowel d enies. C onstipation d enies. D iarrhea d enies. H ematology: Swelling d enies. C lots d enies. V aricose Veins d enies. B ruising a dmits. B leeding problem d enies. G enitourinary: Blood urine d enies. F requent/Painfu/urination/bladder control d enies. K idney stones d enies. I nfection (UTI) d enies. N ephropathy d enies. s ex trans dis (STD) d enies. P rostate d enies. M usculoskeletal: Hammertoes d enies. B unions d enies. B ack Pain d enies. M uscle Cramps/ Resting d enies. M uscle cramps / walking d enies.?Generalized aches and pains d enies. W eakness d enies. I nteg.: Rodriguez d enies. S cars d enies. C orns/calluses?denies. I ngrown nails a dmits. P ainful nails d enies. O pen Sores d enies. R ashes d enies. N eurologic: Difficulty sleeping d enies. B rain disorder d enies. N umbness d enies. B alance trouble d enies. C onfusion d enies. F ainting/blackouts d enies. T ingling d enies. T remors d enies. * Medical History: A rthritis, Cancer, Covid-19, Depression. * Surgical History: k nee replacement 04/25/2017, breast cancer 2011 & 08/02/22, rotator cuff 2013. * Family History: M other: alive, arthritis, cancer. F ather: , diabetes, kidney/liver disease. S iblings: high blood pressure, arthritis, cancer. * Social History: T obacco Use: T obacco Use/Smoking A re you a: f ormer smoker A dditional Findings: Tobacco Non-User C urrent non-smoker Tobacco use other than smoking A re you an other tobacco user? N o D rugs/Alcohol: D rugs H ave you used drugs other than those for medical reasons in the past 12 months? N o Alcohol Screen D id you have a drink containing alcohol in the past year? N o P oints 0 I nterpretation N egative M iscellaneous: C affeine: yes. Children: yes, 2. Marital status: . * Medications: T aking Omeprazole 20 MG Capsule Delayed Release Oral , Taking Lisinopril 10 MG Tablet Oral , Taking Anastrozole 1 MG Tablet 1 MG ORALLY DAILY Oral , Taking Multivitamin , Taking Zometa * Allergies: A spirin. Objective: * Vitals: H t: 5 ft 4 in, Wt:197, BMI:33.81, Shoe size: 8.5, Ht-cm: 162.56 cm, Wt-k.36 kg. Assessment: Plan: * Treatment: * Images: * The named appointment provid er may or may not be the originator of this progress note, and it is not deemed complete until electronically signed by the appointment provider. Sign off status: Pending * Provider: Sylvester Mendoza DPM Date: 0 06/02/2023 Generated for Kevin gonzalez/Alma/Lynetteitting on: 0 11/07/2024 03:26 PM EDT
--- NOTE | 2024-11-07 14:17 | MHC.OFFVIS ---
Vital Signs 11/07/24 14:24 Height 5 ft 4 in Weight 196 lb BMI 33.6 BP 117/68 Blood Pressure Location Lt brachial Position Sitting Pulse 83 Pulse Oximetry (%) 98 Oxygen Delivery Method Room Air Intake Visit Reasons: [place] Screening, hx of Polys Intake Note: Patient new consult for 3rd Colonoscopy Screening, hx of Polys. Patient cc: sensation of chocking with solid and liquid, denies any other GI issues. Electric Motor Repairer Required: No Electric Motor Repairer Services: Electric Motor Repairer Offered & Declined Accompanied by: Self / Same As Patient Allergies aspirin (Aspirin) Allergy (Mild, Verified 11/07/24 14:16) HEARTBURN Medication List - Last Reconciled 11/07/24 by Amena Manjarrez CNP acetaminophen 1,000 mg (2 x 500 mg) PO .q8 PRN anastrozole 1 mg PO DAILY atorvastatin 40 mg PO DAILY cholecalciferol (vitamin D3) 25 mcg PO DAILY diazepam (Valium) 5 mg PO BID PRN ibuprofen 600 mg PO Q8H PRN lisinopril-hydrochlorothiazide 10-12.5 mg 1 tab PO DAILY omeprazole 20 mg PO DAILY HPI HPI [place] Screening, hx of Polys: Details: Patient is a 64-year-old female with PMH of hypertension, OA, GERD and breast CA s/p radiation . Referred by PCP for pre colonoscopy screening Their last colonoscopy was performed in September 2020, where two pre-cancerous polyps were removed, and diverticulosis and internal hemorrhoids were noted. They report no current GI symptoms such as diarrhea, constipation, abdominal pain, nausea, vomiting, heartburn, or hematochezia. They report rare feelings of discomfort that resemble a hiccup sensation in the throat, sometimes when initiating swallowing, but these episodes are not associated with choking, pain, or difficulty swallowing. The sensation has been present since childhood and remains unchanged. There is no new unexplained weight loss, though the patient notes minor weight fluctuations, currently weighing between 196?200 lbs. They do report chest tightness associated with stopping omeprazole, a medication they have been taking for years for reflux induced by prior aspirin use. Known history of breast cancer treated with radiation therapy and ongoing endocrine therapy. Comorbidities include hypertension and hyperlipidemia, managed with lisinopril/hydrochlorothiazide and anastrozole, respectively. Social hx: -Diet: Patient notes recent avoidance of rice, bread, and soda for two weeks, potentially contributing to slight weight changes. -rare ETOH use, 1-2 beers/month -denies recreational drug use -non-smoker - family hx as below -denies significant cardiopulmonary history -tolerated anesthesia in the past without difficulty. [facility] Medical History (Updated 11/07/24 @ 16:15 by Amena Manjarrez CNP) Colon cancer screening Ductal carcinoma in situ (DCIS) of left breast Family history of breast cancer Breast calcification, left Tubular adenoma GERD (gastroesophageal reflux disease) History of ductal carcinoma in situ (DCIS) of breast Osteoarthritis Hypertension Surgical History History of lumpectomy of left breast (~08/02/22) Hx of rotator cuff surgery Hx of colonoscopy History of lumpectomy of right breast History of left knee replacement Family History Mother Breast cancer Sister Breast cancer Social History Household Members: None Housing: House Are you a primary career consultant to a significant other at home: No Do you presently have visiting nurse or other home services: Yes ([facility]) Alcohol intake: never Patient Tobacco Use Status: Former Tobacco user Second Hand Smoke Exposure: No service: No Current occupational status: unemployed Female Reproductive History Menstrual Age of Menarche: 11 Review of Systems Const Reports as per HPI ENT Reports as per HPI Card Reports as per HPI Resp Reports as per HPI GI Reports as per HPI Reports as per HPI Physical Exam Vital Signs: Last Vital Signs Pulse 83 11/07/24 14:24 BP 117/68 11/07/24 14:24 Pulse Ox 98 11/07/24 14:24 Oxygen Delivery Method Room Air 11/07/24 14:24 BMI result Body Mass Index 33.6 Const General: healthy appearing, no acute distress and well developed Nutritional Appearance: average body habitus Orientation/consciousness: patient oriented x3 HEENT Head: Yes normal to inspection, Yes normocephalic and Yes atraumatic Face and sinus: Yes normal facial exam Eyes General: appearance normal, both eyes and all related structures Neck Neck: Yes normal visual inspection Resp Effort & Inspection: normal respiratory effort, able to speak in complete sentences, no tracheal deviation and symmetric chest movement Neuro General: patient oriented x3 Gait exam (Neuro): Normal gait present Psych Appearance: grossly normal Mental Status: mental status grossly normal Speech and movement: Normal speech and movement present Affect: normal affect Attitude: cooperative Thought process: Normal thought process present Thought content: Normal thought content present Insight: Good insight present (Psych) Judgement: Good judgement present (Psych) Results Reviewed Results Reviewed: Operative Note Date of Service: 09/18/20 Narrative: Pre-op diagnosis: Colon cancer screening Post-op diagnosis: other (COLON POLYPS, DIVERTICULOSIS) Procedure: COLONOSCOPY PROCEDURE TO THE CECUM WITH BIOPSIES AND SNARE POLYPECTOMY Consent: Indications for the procedure and potential complications of bleeding, perforation, reaction to medications and missed diagnosis were discussed with the patient and informed consent was obtained. Instrument: Olympus PCF H 190 L variable stiffness pediatric colonoscope Monitoring: Vital signs and clinical assessment, intermittent blood pressure monitoring, continuous EKG monitoring, Pulse oximetry and Carbon Dioxide monitoring were done throughout the procedure. Colon withdrawl time was 19 minutes. Procedure: The patient was placed in the left lateral decubitis position and pre-procedure medications were administered. After a digital rectal examination of the ano-rectum, the video colonoscope was inserted into the rectum and advanced through the colon to the cecum. The colonoscope was slowly withdrawn in a retrograde panoramic fashion and the colon mucosa was carefully examined including a retroflexed view of the rectum. Findings and interventions are described below. Procedure Difficulty: Without difficulty Findings: Terminal Ileum: Not evaluated Cecum: A 4-5 mm sessile polyp removed with a cold snare Ascending Colon: Moderate diverticulosis Transverse Colon: A 4-5 mm sessile polyp removed with the cold biopsy and moderate diverticulosis Descending Colon: Moderate diverticulosis Sigmoid Colon: Severe diverticulosis with luminal narrowing Rectum: Normal Ano-rectum: Normal Colon preparation: Excellent Impression and Post Procedure Diagnosis: Colonoscopy Findings: Two small polyps removed Moderate to severe diverticulosis seen in the entire colon Plan: Await pathology results Patient has an appointment on 09/28/20 in the GI Clinic with Leslie Christianson FNP-BC . Repeat Colonoscopy interval based on path results - in 3-5 years if polyps are adenomatous and 10 years if polyps are hyperplastic. Above findings were reviewed with the patient and colon polyps and diverticulosis handouts were given in the discharge area Surgeon: Amie Reyes MD PATHOLOGY Collected: 09/18/20 Location: [facility] Received: 09/18/20 Diagnosis A. Colon, cecum, polypectomy: Tubular adenoma; negative for high-grade dysplasia. B. Colon, transverse, polypectomy: Tubular adenoma, diminutive; negative for high-grade dysplasia. Clinical History Pre-Op Dx: Screening Post-Op Dx: Colon polyps, diverticulosis Assessment & Plan Assessment & Plan (1) Colon cancer screening: Comment: 09/18/20 colonoscopy complete with excellent prep-4-5 mm TA to cecum and Transverse , moderate to severe diverticulosis. 04/22/09 colonoscopy complete-diverticulosis, internal hemorrhoids Code(s): Z12.11 - Encounter for screening for malignant neoplasm of colon Category: Medical Plan: History of precancerous polyps in 2020 and diverticulosis. Additional Testing: Colonoscopy scheduled for early 2025. Medication Management: Prescribed GoLYTELY and laxative tablets for colonoscopy preparation. Closely reviewed aspirin allergy, and prior tolerance of tablets confirmed. Lifestyle Recommendations: Maintain high-fiber diet to manage diverticulosis. Avoid red, blue, or purple liquids during prep. Follow-Up: Recall for screening procedure closer to scheduled date. Patient instructed to call in case of new symptoms prior to the procedure. (2) GERD (gastroesophageal reflux disease): Code(s): K21.9 - Gastro-esophageal reflux disease without esophagitis Category: Medical Qualifiers: Esophagitis presence: esophagitis presence not specified Qualified Code(s): K21.9 - Gastro-esophageal reflux disease without esophagitis Plan: Long history of symptoms controlled on omeprazole, chest tightness on discontinuation. Possible esophageal or gastric mucosal changes given prolonged use of acid-suppressing therapy. Additional Testing: Plan for concurrent upper endoscopy during colonoscopy to assess for esophageal or gastric changes. Medication Management: Continue omeprazole. Lifestyle Recommendations: Continue dietary modifications as needed to reduce GI triggers. Follow-Up: Based on endoscopy findings. Plan Follow-up after endoscopy or sooner as needed Time: I spent a total of 30 minutes on the date of encounter which includes: Preparing to see the patient (reviewed previous documentation, test results and medical history) Performing a medically appropriate exam and/or evaluation Ordering medications, tests, and procedures Documenting clinical information in the health record Medications: New simethicone (Gas Relief (simethicone)) per colonoscopy prep instructions 125 mg PO ONCE 4 caps 0RF abdominal distention peg 3350-electrolytes 236-22.74-6.74 -5.86 gram until fecal effluent is clear 240 mL PO Q10M 4,000 mL 0RF bisacodyl Take per colonoscopy instructions 5 mg PO BID 4 tabs 0RF Coding Level of Care Code New Pt New Pt Level 3 (76582) Patient Type New Diagnoses Colon cancer screening Z12.11 Gastroesophageal reflux disease, unspecified whether esophagitis present K21.9 Esophagitis presence: esophagitis presence not specified
[2024-11-07 14:24] VITALS: BP 117/68; PULSE 83; O2SAT 98; BMI 33.6
--- OUTSIDE RECORDS SUMMARY | 2024-11-07 15:26 | XMS_ITS | Encounter Summary ---
Author Organization [employer] Address [address] [facility] 7t [place] [address] Care Team Providers Care Plastic Tile Setter Name Role Phone Dalila Yang MD Primary Care Provider [phone]- [phone] Dalila Yang MD Primary Care Provider [phone]- [phone] Chadwick Rojo MD Unavailable [phone] Encounter Details Date Type Department Care Team (Late st Contact Info) Description 12/28/2022 Abstract [facility] MEDICINE [address] [place] [address] Dalila Yang MD [address] [place], [place] [phone] Social History Tobacco Use Types Packs/Day Years [...] documented as of this encounter Care Teams Plastic Tile Setter Relationship Specialty Start Date End Date Dalila Yang MD [address] [place] [address] PCP - General Family Medicine 03/06/18 07/10/23 Dalila Yang MD [address] [place] [address] PCP - General Family Medicine 02/14/24 02/28/24 Chadwick Rojo MD [address] [place] [address] Hematology and Oncology 05/01/24 documented as of this encounter
--- OUTSIDE RECORDS SUMMARY | 2024-11-07 15:26 | XMS_ITS | Patient Health Record ---
Author Organization [facility] [place] Address [address] [place] [address] Care Team Providers Care Chemical Technician Name Role Phone Pippa Stephenson Primary Care Provider Prabha Roe Unavailable [phone] Allergies Allergen (clinical drug ingredient) Drug/Non Drug Allergy documented on EMR Reaction Allergy Type Onset Date Status aspirin Aspirin Unknown Drug Allergy Active Reason For Referral No Information Medications Medication SIG (Take, Route, Fr equency, Duration) Notes Start Date End Date Status Omeprazole 20 MG Oral; Duration: 90 Days Active Anastrozole 1 MG 1 tablet Orally Once a day Active Multivitamin Active Zometa 1x per year Active Lisinopril 10 MG Oral; Duration: 90 Days Active Omeprazole 20 MG 1 [...] Problem Acquired hammer toe of right foot (805860763642568 5) Other hammer toe(s) (acquired), right foot (M20.41) Active confirmed Problem Acquired hallux valgus (07314864) 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) Active confirmed Problem Ulcer of toe of right foot (disorder) (314158368514594 01) Skin ulcer of toe of right foot, limited to breakdown of skin (L97.511) Active confirmed Nonapplicable Problem Arthritis of joint of toe (305063934) Arthritis of joint of toe (M19.079) Active confirmed Problem Localized, primary osteoarthritis of the ankle and/or foot (223700670) Arthritis of joint of lesser toe, right (M19.071) Active confirmed Plan Of Treatment Pending Test Test Name Order Date [id number]-Doiecwio Plate 04/03/2023 80390- Debride <25 sq cm 04/27/2023 Insurance Providers Payer Name Payer Address Payer Phone Subscriber Number Group Number Insured Name Patient Relationship to Insured Coverage Start Date Coverage End Date [facility] [employer] Claims [address] [place] [phone] [id number] Payton Barr Self - patient is the insured Medical (General) History Medical History History ICD Code Arthritis Cancer covid-19 Depression Surgical History Surgery Date(Month/Year) knee replacement 04/25/2017 breast cancer 2011 & 08/02/22 rotator cuff 2014
--- OUTSIDE RECORDS SUMMARY | 2024-11-07 15:26 | XMS_ITS | Encounter Summary ---
Author Organization [employer] Address [address] [place] [address] 7 [place] [address] Care Team Providers Care Regional Truck Driver Name Role Phone Dalila Yang MD Primary Care Provider [phone]- [phone] Dalila Yang MD Primary Care Provider [phone]- [phone] Chadwick Rojo MD Unavailable [phone] Reason for Visit * Reason Comments Med Refill Encounter Details Date Type Department Care Team ([facility] st Contact Info) Description 08/19/2022 Refill [facility] MED[facility]INE [address] [place] [address] Dalila Yang MD [address] [place] [address] Social History Tobacco Use Types Packs/Day Years [...] documented as of this encounter Care Teams Regional Truck Driver Relationship Specialty Start Date End Date Dalila Yang MD [address] [place] [address] PCP - General Family Medicine 03/06/18 07/10/23 Dalila Yang MD [address] [place] [address] PCP - General Family Medicine 02/14/24 02/28/24 Chadwick Rojo MD [address] [place] [address] Hematology and Oncology 05/01/24 documented as of this encounter
--- OUTSIDE RECORDS SUMMARY | 2024-11-07 15:26 | XMS_ITS | Encounter Summary ---
Author Organization [employer] Address [address] [facility] 7t [place] [address] Care Team Providers Care Casing Inspector Name Role Phone Dalila Yang MD Primary Care Provider [phone]- [phone] Dalila Yang MD Primary Care Provider [phone]- [phone] Chadwick Rojo MD Unavailable [phone] Encounter Details Date Type Department Care Team (Late st Contact Info) Description 08/05/2022 Abstract [facility] MED[facility] [address] [place] [address] Dalila Yang MD [address] [place], [place] [phone] Social History Tobacco Use Types Packs/Day Years [...] documented as of this encounter Care Teams Casing Inspector Relationship Specialty Start Date End Date Dalila Yang MD [address] [place] [address] PCP - General Family Medicine 03/06/18 07/10/23 Dalila Yang MD [address] [place] [address] PCP - General Family Medicine 02/14/24 02/28/24 Chadwick Rojo MD [address] [place] [address] Hematology and Oncology 05/01/24 documented as of this encounter
--- OUTSIDE RECORDS SUMMARY | 2024-11-07 15:26 | XMS_ITS | Encounter Summary ---
Author Organization [employer] Address [address] [facility] 7t [place] [address] Care Team Providers Care Core Loader Name Role Phone Dalila Yang MD Primary Care Provider [phone]- [phone] Dalila Yang MD Primary Care Provider [phone]- [phone] Chadwick Rojo MD Unavailable [phone] Encounter Details Date Type Department Care Team (Late st Contact Info) Description 08/11/2022 Abstract [facility] [address] [place] [address] Dalila Yang MD [address] [place], [place] [phone] Social History Tobacco Use Types Packs/Day Years [...] EDT Left breast lumpectomy performed due to DCIS Historical Provider IMEarle XR PROCEDURES Final R esult * Hm Mammography (08/02/2022 9:24 AM EDT) Mammogram Abnornal Anatomical Region Laterality Modality Other Narrative 08/02/2022 9:24 AM EDT Left breast lumpectomy performed due to DCIS Historical Provider HEALTH MAINTENANCE Final Result * External Breast Biopsy (07/19/2022 9:19 AM EDT) Anatomical Region Laterality Modality Breast N/A Mammography Narrative 07/19/2022 9:19 AM EDT Abnormal stereotactic biopsy of left breast results were Ductal carcinoma in situ, nuclear grade 2, cribriform and papillary patterns, with focal necrosis and microcalcifications. please see scanned report ([facility] Historical Provider MD ALVES BI PROCEDURES Final R esult * (ABNORMAL) Mammography (07/19/2022 9:17 AM EDT) Mammogram Abnormal Anatomical Region Laterality Modality Other Narrative 07/19/2022 9:17 AM EDT Abnormal stereotactic biopsy of left breast results were Ductal carcinoma in situ, nuclear grade 2, cribriform and papillary patterns, with focal necrosis and microcalcifications. please see scanned report ([facility] Historical Provider HEALTH MAINTENANCE Final Result documented in this encounter Visit Diagnoses Not on filedocumented in this encounter Additional Health Concerns Assessment Noted Time PHQ-9 Depression Total Score: 4 05/05/19 23 11:06 AM EST documented as of this encounter Care Teams Core Loader Relationship Specialty Start Date End Date [place], [place] Dalila [address] [place] [address] PCP - General Family Medicine 03/06/18 07/10/23 Dalila Yang MD [address] [place] [address] PCP - General Family Medicine 02/14/24 02/28/24 Chadwick Rojo MD [address] [place] [address] Hematology and Oncology 05/01/24 documented as of this encounter
--- OUTSIDE RECORDS SUMMARY | 2024-11-07 15:26 | XMS_ITS | Encounter Summary ---
Author Organization [employer] Address [address] [facility] 7t [place] [address] Care Team Providers Care Director Search Marketing Strategies Name Role Phone Dalila Yang MD Primary Care Provider [phone]- [phone] Chadwick Rojo MD Unavailable [phone] Reason for Visit * Reason Comments Med Refill Encounter Details Date Type Department Care Team ([facility] st Contact Info) Description 08/23/2023 Refill [facility] MEDICINE [address] [place] [address] Dalila Yang MD [address] [place] [address] Primary insomnia Social History Tobacco Use Types [...] documented as of this encounter Care Teams Director Search Marketing Strategies Relationship Specialty Start Date End Date Dalila Yang MD [address] [place] [address] PCP - General Family Medicine 02/14/24 02/28/24 Chadwick Rojo MD [address] [place] [address] Hematology and Oncology 05/01/24 documented as of this encounter
--- OUTSIDE RECORDS SUMMARY | 2024-11-07 15:27 | XMS_ITS | Encounter Summary ---
Author Organization [employer] Address [address] [facility] [address]t [place] [address] Care Team Providers Care Cissp Name Role Phone Dalila Yang MD Primary Care Provider [phone]- [phone] Chadwick Rojo MD Unavailable [phone] Reason for Visit * Reason Comments Med Refill Encounter Details Date Type Department Care Team ([facility] st Contact Info) Description 11/22/2023 Refill [facility] [address] [place] [address] Dalila Yang MD [address] [place] [address] Primary insomnia Social History Tobacco Use Types [...] documented as of this encounter Care Teams Cissp Relationship Specialty Start Date End Date Dalila Yang MD [address] [place] [address] PCP - General Family Medicine 02/14/24 02/28/24 Chadwick Rojo MD [address] [place] [address] Hematology and Oncology 05/01/24 documented as of this encounter
--- OUTSIDE RECORDS SUMMARY | 2024-11-07 15:27 | XMS_ITS | Encounter Summary ---
Author Organization [employer] Address [address] [place] [address] [address] [place] [address] Care Team Providers Care Art Objects Supervisor Name Role Phone Dalila Yang MD Primary Care Provider [phone] Dalila Yang MD Primary Care Provider [phone]- [phone] Chadwick Rojo MD Unavailable [phone] Encounter Details Date Type Department Care Team (Late st Contact Info) Description 08/02/2022 Abstract [facility] MEDICINE [address] [place], [place] [phone] Dalila Yang MD [address] [place] [address] Social History Tobacco Use Types Packs/Day Years [...] documented as of this encounter Care Teams Art Objects Supervisor Relationship Specialty Start Date End Date Dalila Yang MD [address] [place] [address] PCP - General Family Medicine 03/06/18 07/10/23 Dalila Yang MD [address] [place] [address] PCP - General Family Medicine 02/14/24 02/28/24 Chadwick Rojo MD [address] [place] [address] Hematology and Oncology 05/01/24 documented as of this encounter
--- OUTSIDE RECORDS SUMMARY | 2024-11-07 15:27 | XMS_ITS | Encounter Summary ---
Author Organization [employer] Address [address] [place] [address] 7t [place] [address] Care Team Providers Care Micropaleontologist Name Role Phone Dalila Yang MD Primary Care Provider [phone]- [phone] Dalila Yang MD Primary Care Provider [phone]- [phone] Chadwick Rojo MD Unavailable [phone] Encounter Details Date Type Department Care Team (Late st Contact Info) Description 07/25/2022 Abstract [facility] MEDICINE [address] [place] [address] Dalila Yang MD [address] [place], [place] [phone] Social History Tobacco Use Types Packs/Day Years [...] documented as of this encounter Care Teams Micropaleontologist Relationship Specialty Start Date End Date Dalila Yang MD [address] [place] [address] PCP - General Family Medicine 03/06/18 07/10/23 Dalila Yang MD [address] [place] [address] PCP - General Family Medicine 02/14/24 02/28/24 Chadwick Rojo MD [address] [place] [address] Hematology and Oncology 05/01/24 documented as of this encounter
--- OUTSIDE RECORDS SUMMARY | 2024-11-07 15:27 | XMS_ITS | Clinical Summary ---
Author Organization [employer] Address [address] [place] [address] [address] [place] [address] Care Team Providers Care Fruit Pitter Name Role Phone Chadwick Rojo MD Unavailable [phone] Allergies Active Allergy Reactions Criticality Noted [...] density due September [address] Rojo [facility] care 08/24/2022 Overview (08/24/2022): Next PE [...] in situ of breast 09/02/19 12 Overview (09/04/2024): Hx of DCIS of Right Breast 2016 [...] radiation. -continue Aromatase inhibitor: Arimidex. -referral to [facility] for radiation placed by Dr. Rojo -MRI 02/23/24 s/p lumpectomies, no evidence of maligancy -seen by Dr. Valle 08/28/24 Assessment & Plan (08/24/2022 1:58 PM EDT): [...] radiation. -continue Aromatase inhibitor: Arimidex. -referral to [facility] for radiation placed by Dr. Rojo Assessment & Plan (05/04/2022 11:32 AM EST): Pt had a normal mammogram on 03/09/11 . BIRADS 2 benign. She noted a mass on her R breast and an ultrasound done on 05/04/11 revealed a suspicious mass. 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 On [...] knee 8 05/03/2022 Weakness 04/28/2017 05/03/2022 Immunizations Immunization Administration Dates Next Due Influenza injectable quadrivalent [...] 64 08/24/2022 1:56 PM EDT Temperature 36.7 C (98.1 F) 08/24/2022 1:56 PM EDT Respiratory Rate 20 08/24/2022 1:56 PM EDT [...] Screening 08/25/2023 08/24/2022 COVID-19 Vaccine ( season) 2024 02/11/2021, 06/09/2020, 05/12/2020 Influenza Vaccine (#1) 2024 , 02/03/2023, 12/09/2020, Additional history exists Diagnostic [...] patient's age to complete this topic Meningococcal B Vaccine Aged Out No l onger eligible based on patient's age to complete [...] PM EST Narrative 02/23/2024 2:52 PM EST [place] [address] Magnetic Resonance Report Signed Patient: Payton Barr I MR#: [id number] : 1960 Acct:[id number] Age/Sex: 63 / F ADM Date: 01/31/24 Loc: HO.MRI Attending Dr: Chadwick Rojo MD Ordering Physician: Chadwick Rojo MD Date of Service: 01/31/24 Procedure(s): MR breast BI wo/w con Accession Number(s): [id number] cc: Dalila Yang MD; Chadwick Rojo MD [...] by: Charis Khalil DO 02/23/2024 02:50 PM [facility] Dictated By: Charis Khalil DO Signed By: <Electronically signed by Charis Khalil DO in OV> 02/23/24 1450 DD/ 1350 TD/TT: 01/31/24 1430 Assembler Fluorescent Lights: Procedure Note Donotuseinterpreter, Image - 02/23/2024 [place] [address] Magnetic Resonance Report Signed Patient: Payton Barr IMR#: [id number] : 1960cct:[id number] Age/Sex: 63 / FADM Date: 01/31/24 Loc: HO.MRI Attending Dr: Chadwick Rojo MD Ordering Physician: Chadwick Rojo MD Date of Service: 01/31/24 Procedure(s): MR breast BI wo/w con Accession Number(s): [id number] cc: Dalila Yang MD; Chadwick Rojo MD [...] by: Charis Khalil DO 02/23/2024 02:50 PM [facility] Dictated By: Charis Khalil DO Signed By: <Electronically signed by Charis Khalil DO in OV> 02/23/24 1450 DD/ 1350 TD/TT: 01/31/24 1430 Assembler Fluorescent Lights: [facility] External Provider IMG MRI PROCEDURES Final Result * (ABNORMAL) LIPID PANEL, STANDARD (12/17/2021 11:26 AM EDT) Chol/HDLC Ratio 3.4 <5.0 (calc) CONVERTED LEGACY LABS Cholesterol, Total 221(H) <200 mg/dL CONVERTED LEGACY LABS HDL Cholesterol 65 > OR = 50 mg/dL CONVERTED LEGACY LABS LDL Cholesterol 128(H) mg/dL (calc) CONVERTED LEGACY LABS Comment: Reference range: <100 Desirable range <100 mg/dL for primary prevention; <70 mg/dL for patients with CHD or diabetic patients with > or = 2 CHD risk factors. LDL-C is now calculated using the Milo-Yan calculation, which is a validated novel method providing better accuracy than the Friedewald equation in the estimation of LDL-C. Milo SS et al. TOÑITO. 2013;310(19): 2818-3452 (http://education.Yoogaia/faq/RXG039) Non-HDL Cholesterol 156(H) <130 mg/dL (calc) CONVERTED [facility]ist Comment: For patients with diabetes plus 1 major ASCVD risk factor, treating to a non-HDL-C goal of <100 mg/dL (LDL-C of <70 mg/dL) is considered a therapeutic option. Triglycerides 167(H) <150 mg/dL CONVE RTED LEGACY LABS 12/17/2021 11:2 6 AM EDT Dalila Yang MD LAB BLOOD ORDERABLES Final Result CONVERTED SMS Assist * THINPREP TIS PAP AND HPV mRNA E6/E7, CT/NG, TRICH (12/17/2021 10:46 AM EDT) Chlamydia trachomatis RNA, TMA, Urogenital NOT DETECTED NOT DETECTED CONVERTED SMS Assist Clinical Information: None given CONVERTED [email or web address] LABS COMMENT SEE COMMENT CONVERTE D SMS Assist Comment: The analytical performance characteristics of this assay, when used to test SurePath(TM) specimens have been determined by [facility]. The modifications have not been cleared or approved by the FDA. This assay has been validated pursuant to the CLIA regulations and is used for clinical purposes. For additional information, please refer to https://education.Conductiv/faq/TTW560 (This link is being provided for information/ educational purposes only.) COMMENT SEE COMMENT CONVERTE D SMS Assist Comment: EXPLANATORY NOTE: The Pap is a screening test for cervical cancer. It is not a diagnostic test and is subject to false negative and false positive results. It is most reliable when a satisfactory sample, regularly obtained, is submitted with relevant clinical findings and history, and when the Pap result is evaluated along with historic and current clinical information. COMMENT: This Pap test has been evaluated with computer assisted technology. CONVERTED SMS [facility]ist Gastroenterology Physician: SEE COMMENT CONVERTED SMS Assist Comment: MADI LEWIS(ASCP) CT screening location: [facility] [address] HPV nRNA E6/E7 Not Detected Not Detected CONVERTED LEGACY LABS Comment: Methodology: Assistant Chief Nursing Officer-Mediated Amplification This assay detects E6/E7 viral messenger RNA (mRNA) from 14 high-risk HPV types (16,18,31,33,35,39,45,51,52,56,58,59,66,68). Cervical sources are required for HPV testing. If a vaginal source from a patient who has had a total hysterectomy with removal of cervix was submitted, please contact the testing laboratory for alternative testing options. For additional information, please refer to http://education.Conductiv/faq/MGZ652h9 (This link if provided for information/ educational [...] of this assay have been determined by [facility]. The modifications have not been cleared or approved by the FDA. This assay has been validated pursuant to the CLIA regulations and is used for clinical purposes. For additional information, please refer to http://education.Conductiv/ faq/Trichomonastma (This link is being provided for information/ educational purposes only.) 12/17/2021 10:4 6 AM EDT Dalila Yang MD LAB PATHOLOGY ORDERABLES F inal Result CONVERTED LEGACY LABS * Pap Smear (12/17/2021 12:00 AM EDT) Swab us Historical Provider LAB CYTOLOGY ORDERABLES F inal Result CTC HISTORICAL LABS * Hm Colonoscopy (09/18/2020) Colonoscopy tubular adenoma with Dr. Eric Quinonez us Historical Provider HEALTH MAINTENANCE Final Result from Last 3 Months or Most Recently Relevant to Health Maintenance Insurance [facility] < 65 Care Teams Fruit Pitter Relationship Specialty Start Date End Date Chadwick Rojo MD [address] [place], [place] [phone] Hematology and Oncology 05/01/24
--- OUTSIDE RECORDS SUMMARY | 2024-11-07 15:27 | XMS_ITS | Encounter Summary ---
Author Organization [employer] Address [address] [facility] [address] [place] [address] Care Team Providers Care Silo Painter Name Role Phone Dalila Yang MD Primary Care Provider [phone] Dalila Yang MD Primary Care Provider [phone] Chadwick Rojo MD Unavailable [phone] Encounter Details Date Type Department Care Team (Late st Contact Info) Description 04/05/2022 Abstract [facility] [address] [place] [address] Dalila Yang MD [address] [place], [place] [phone] Social History Tobacco Use Types Packs/Day Years [...] Historical Provider HEALTH MAINTENANCE Final Result * Mammography (06/24/2020) Mammogram BIRADS 2 Anatomical Region Laterality Modality Other [facility] Provider HEALTH MAINTENANCE Final Result documented in this encounter Visit Diagnoses Not on filedocumented in this encounter Care Teams Silo Painter Relationship Specialty Start Date End Date Dalila Yang MD [address] [place] [address] PCP - General Family Medicine 03/06/18 07/10/23 Dalila Yang MD [address] [place] [address] PCP - General Family Medicine 02/14/24 02/28/24 Chadwick Rojo MD [address] [place] [id number] Hematology and Oncology 05/01/24 documented as of this encounter
== END 2024-11-07 15:08 | disposition home or self-care (01) ==
LOC: HO.HGI 14:12
PROVIDERS: PCP Student in an Organized Health Care Education/Training Program; Visit Provider Nurse Practitioner Family
DX: Z01.818 Encounter for other preprocedural examination (principal); Z12.11 Encounter for screening for malignant neoplasm of colon; Z86.0101 Personal history of adenomatous and serrated colon polyps; K21.9 Gastro-esophageal reflux disease without esophagitis
CPT/HCPCS: 99203

== ENCOUNTER → 2024-11-07 14:11 | Outpatient (BNVA) | payer OTHER, SELFPAY | PROVIDERS: PCP Student in an Organized Health Care Education/Training Program; Visit Provider Nurse Practitioner Family | DX: Z01.818 Encounter for other preprocedural examination (principal); Z12.11 Encounter for screening for malignant neoplasm of colon; K21.9 Gastro-esophageal reflux disease without esophagitis | CPT/HCPCS: 99202 ==